=== PATIENT | female | born 1990 | race Caucasian/White ===

== ENCOUNTER → 2019-03-01 12:56 | Outpatient (CLI) | payer OTHER, SELFPAY ==
[2019-03-01 09:50] VITALS: BMI 25.2
[2019-03-03 13:59] LABS: HPV Reflexed? NOT INDICATED
== END ==
PROVIDERS: PCP Internal Medicine; Referring Provider Obstetrics & Gynecology; Visit Provider Obstetrics & Gynecology
DX: Z12.4 Encounter for screening for malignant neoplasm of cervix (principal)
CPT/HCPCS: 87624; 88175; G0145

== ENCOUNTER → 2020-03-04 09:00 | Outpatient (CLI) | payer OTHER, SELFPAY ==
[2020-03-04 08:42] VITALS: BMI 25.2
== END ==
PROVIDERS: PCP Internal Medicine; Referring Provider Obstetrics & Gynecology; Visit Provider Obstetrics & Gynecology
DX: N89.8 Other specified noninflammatory disorders of vagina (principal)
CPT/HCPCS: 87070; 87205

== ENCOUNTER → 2020-12-03 12:11 | Outpatient (CLI) | payer OTHER, SELFPAY ==
[2020-12-03 10:38] VITALS: BMI 25.8
== END ==
PROVIDERS: PCP Internal Medicine; Referring Provider Nurse Practitioner Women's Health; Visit Provider Nurse Practitioner Women's Health
DX: N76.0 Acute vaginitis (principal)
CPT/HCPCS: 87070; 87205

== ENCOUNTER → 2021-04-03 16:52 | Outpatient (CLI) | payer OTHER, SELFPAY ==
[2021-04-03 10:05] VITALS: BMI 25.2
== END ==
PROVIDERS: PCP Internal Medicine; Visit Provider Obstetrics & Gynecology
DX: Z12.4 Encounter for screening for malignant neoplasm of cervix (principal)
CPT/HCPCS: 87624; 88175; G0145

== ENCOUNTER → 2022-04-17 | Outpatient (CLI) | payer OTHER, SELFPAY ==
[2022-04-17 10:48] LABS: Amphetamine Urine VISTA NEGATIVE (<1000 ng/mL); Barbiturate Urine VISTA NEGATIVE (< 200 ng/mL); Benzodiazepine Urine VISTA NEGATIVE (< 200 ng/mL); Cocaine Urine VISTA NEGATIVE (< 300 ng/mL); Ecstacy Urine VISTA NEGATIVE (< 500 ng/mL); Methadone Urine VISTA NEGATIVE (< 300 ng/mL); PCP Urine VISTA NEGATIVE (< 25 ng/mL); THC Urine VISTA NEGATIVE (< 50 ng/mL); Vista UDS pH Range 7
[2022-04-20 21:07] LABS: Chlamydia By Nucleic Acid AMP Negative (Negative)
[2022-04-20 21:24] LABS: Gonococcus By Nucleic Acid AMP Negative (Negative)
[2022-04-23 16:39] LABS: HPV APTIMA, High Risk Negative (Negative)
== END | disposition home or self-care (01) ==
LOC: LABSPEC 15:11
PROVIDERS: PCP Internal Medicine; Referring Provider Obstetrics & Gynecology; Visit Provider Obstetrics & Gynecology
DX: O09.91 Supervision of high risk pregnancy, unspecified, first trimester (principal); Z3A.00 Weeks of gestation of pregnancy not specified
CPT/HCPCS: 80307; 87086; 87491; 87591; 87624; 88175; G0145

== ENCOUNTER → 2022-05-15 | Outpatient (CLI) | payer OTHER, SELFPAY ==
[2022-05-15 12:33] LABS: Absolute Lymphocyte Count 2.24 X10^3/uL (0.83-4.51); Absolute Neutrophil Count 7.5 X10^3/uL (2.0-7.7); Basophil# 0.04 X10^3/uL; Basophil% 0.4 % (0-1); Eosinophil# 0.07 X10^3/uL; Eosinophils% 0.7 % (0-5); Hematocrit 37.5 % (37-47); Hemoglobin 12.9 g/dL (12.0-15.0); Lymphocyte # 2.24 X10^3/ul (0.83-4.51); Lymphocyte % 21.2 % (19-41); Mean Corp Hgb Conc 34.4 g/dL (32-36); Mean Corpuscular Volume 93.1 fL (81-99); Mean Platelet Vol. 10.1 fl (6.2-12.0); Monocyte# 0.62 X10^3/uL; Monocyte% 5.9 % (0-10); NRBC Flagged by Analyzer 0 % (0-5); Neutrophil # 7.54 X10^3/uL (2.7-7.7); Neutrophil % 71.1 % (47-70); Platelet Count 350 K/mm3 (150-450); RBC Distribution Width CV 12.5 % (11.6-14.6); RBC Distribution Width SD 42.5 fl (35.1-43.9); Red Blood Count 4.03 M/mm3 (4.2-5.4); White Blood Count 10.6 K/mm3 (4.4-11.0)
[2022-05-15 13:19] LABS: HIV - WCH Non-Reactive (Nonreactive); Hepatitis B Surface Antigen Non-Reactive (Nonreactive); Hepatitis C Antibody Non-Reactive (Nonreactive); Rubella IgG Reactive (Nonreactive); Syphilis Antibodies Non-reactive
== END | disposition home or self-care (01) ==
LOC: LAB 11:25
PROVIDERS: PCP Internal Medicine; Referring Provider Obstetrics & Gynecology; Visit Provider Obstetrics & Gynecology
DX: O09.91 Supervision of high risk pregnancy, unspecified, first trimester (principal); Z3A.00 Weeks of gestation of pregnancy not specified
CPT/HCPCS: 36415; 85025; 86703; 86762; 86780; 86803; 86850; 86900; 86901; 87340

== ENCOUNTER → 2022-08-04 | Outpatient (CLI) | payer OTHER, SELFPAY ==
[2022-08-04 11:18] LABS: Absolute Lymphocyte Count 1.85 X10^3/uL (0.83-4.51); Absolute Neutrophil Count 7.3 X10^3/uL (2.0-7.7); Basophil# 0.03 X10^3/uL; Basophil% 0.3 % (0-1); Eosinophil# 0.12 X10^3/uL; Eosinophils% 1.2 % (0-5); Lymphocyte # 1.85 X10^3/ul (0.83-4.51); Lymphocyte % 18.2 % (19-41); Mean Corp Hgb Conc 34.3 g/dL (32-36); Mean Corpuscular Hgb 32.6 pg (27.0-32.0); Mean Corpuscular Volume 95.1 fL (81-99); Mean Platelet Vol. 9.4 fl (6.2-12.0); Monocyte# 0.71 X10^3/uL; NRBC Flagged by Analyzer 0 % (0-5); Neutrophil # 7.25 X10^3/uL (2.7-7.7); Neutrophil % 71.4 % (47-70); Platelet Count 283 K/mm3 (150-450); RBC Distribution Width CV 12.7 % (11.6-14.6); RBC Distribution Width SD 43.9 fl (35.1-43.9); Red Blood Count 3.68 M/mm3 (4.2-5.4); White Blood Count 10.2 K/mm3 (4.4-11.0)
[2022-08-04 11:46] LABS: Glucose Challenge Gest 1H 50g 124 mg/dL (70-140)
== END | disposition home or self-care (01) ==
LOC: LAB 11:01
PROVIDERS: PCP Internal Medicine; Referring Provider Obstetrics & Gynecology; Visit Provider Obstetrics & Gynecology
DX: O09.91 Supervision of high risk pregnancy, unspecified, first trimester (principal); Z3A.00 Weeks of gestation of pregnancy not specified
CPT/HCPCS: 36415; 82950; 85025

== ENCOUNTER → 2022-08-18 | Outpatient (CLI) | payer OTHER, SELFPAY | END | disposition home or self-care (01) | LOC: LABSPEC 08-19 06:48 | PROVIDERS: PCP Internal Medicine; Visit Provider Nurse Practitioner Women's Health | DX: R35.0 Frequency of micturition (principal) | CPT/HCPCS: 87086; 87088 ==

== ENCOUNTER → 2022-09-01 | Outpatient (CLI) | payer OTHER, SELFPAY ==
--- NOTE | 2022-09-01 13:15 | US_ITS ---
STUDY: SECOND AND THIRD TRIMESTER OBSTETRICAL ULTRASOUND REASON FOR EXAM: Female, 32 years old Growth LMP: 01/18/2022. TECHNIQUE: Transabdominal TECHNICAL QUALITY: Adequate. PRIOR ULTRASOUND: None. FINDINGS: There is a single intrauterine fetus. The fetus is in a cephalic presentation. There is demonstrated cardiac activity with a heart rate of 127 bpm. There is a normal amniotic fluid volume. The largest amniotic fluid pocket measures 5.7 cm. The amniotic fluid index (TALA) is 16.1 cm. The placenta is fundal and posterior in location. There are Grade 0 placental changes. The cervix measures 3.1 cm in length. The adnexal regions are not visualized. BIOMETRY: BPD: 8.4 cm: 33 weeks, 5 days HC: 30.7 cm: 34 weeks, 1 days AC: 30.3 cm: 34 weeks, 2 days FL: 6.1 cm: 31 weeks, 6 days CI: 81% FL/BPD: 73% FL/HC: FL/AC: 20% HC/AC: 1.01 age by current US: 33 weeks, 2 days. MARKIE by current US: 10/18/2022. Estimated weight: 2236 grams, +/- 335 grams, 80 %. Age by LMP: 32 weeks, 2 days. MARKIE by LMP: 10/25/2022. US/OB Limited With Biometrics IMPRESSION: Single live intrauterine gestation with a mean gestational age of 33 weeks and 2 days. Electronically Signed: Eduar Arias MD at 15:13 EST ,
== END | disposition home or self-care (01) ==
LOC: US 13:13
PROVIDERS: PCP Internal Medicine; Referring Provider Nurse Practitioner Women's Health; Visit Provider Nurse Practitioner Women's Health
DX: U07.1 COVID-19 (principal)
CPT/HCPCS: 76816

== ENCOUNTER → 2022-09-29 | Outpatient (CLI) | payer OTHER, SELFPAY ==
--- NOTE | 2022-09-29 13:25 | US_ITS ---
STUDY: SECOND AND THIRD TRIMESTER OBSTETRICAL ULTRASOUND - LIMITED REASON FOR EXAM: Female, 32 years old growth -- 36 weeks LMP: 01/18/2022 PRIOR ULTRASOUND: 09/01/2022 TECHNIQUE: Transabdominal TECHNICAL QUALITY: Adequate. FINDINGS: There is a single intrauterine fetus. The fetus is in a cephalic presentation. There is demonstrated cardiac activity with a heart rate of 158 bpm. There is a normal amniotic fluid volume. The largest amniotic fluid pocket measures 5.8 cm. The amniotic fluid index (TALA) is 12.8 cm. The placenta is fundal in location. There are Grade 1 placental changes. The cervix measures cm in length. BIOMETRY: BPD: 8.8 cm: 35 weeks, 4 days HC: 32.3 cm: 36 weeks, 4 days AC: 33.6 cm: 37 weeks, 3 days FL: 7.0 cm: 35 weeks, 6 days Age by LMP: 36 weeks, 2 days. MARKIE by LMP: 10/25/2022. age by prior US: weeks, days. MARKIE by prior US: . age by current US: 36 weeks, 6 days. MARKIE by current US: 10/21/2022. Estimated weight: 3051 grams, +/- 458 grams, 68 percentile. Gender: US/OB Limited With Biometrics IMPRESSION: Living intrauterine of 36 weeks 6 days as described above Electronically Signed: Fortunato Kamara MD at 17:43 EST ,
== END | disposition home or self-care (01) ==
LOC: US 13:24
PROVIDERS: PCP Internal Medicine; Referring Provider Nurse Practitioner Women's Health; Visit Provider Nurse Practitioner Women's Health
DX: O98.513 Other viral diseases complicating pregnancy, third trimester (principal); U07.1 COVID-19; Z3A.36 36 weeks gestation of pregnancy
CPT/HCPCS: 76816

== ENCOUNTER → 2022-10-02 | Outpatient (CLI) | payer OTHER, SELFPAY | END | disposition home or self-care (01) | LOC: LABSPEC 15:05 | PROVIDERS: PCP Internal Medicine; Referring Provider Obstetrics & Gynecology; Visit Provider Obstetrics & Gynecology | DX: Z34.90 Encounter for supervision of normal pregnancy, unspecified, unspecified trimester (principal); N39.0 Urinary tract infection, site not specified | CPT/HCPCS: 87081; 87086 ==

== ENCOUNTER 2022-10-19 07:00 | Inpatient (IN) | payer OTHER, SELFPAY ==
[2022-10-19] VITALS (25 sets, daily range): BP systolic 98–142; BP diastolic 56–82; PULSE 72–99; TEMP 36.4–37; O2SAT 81–98; BMI 28.1
[2022-10-19] MEDS: Lactated Ringers 1,000 ML 50 ML IV (07:45)
[2022-10-19 08:08] LABS: Absolute Lymphocyte Count 2.14 X10^3/uL (0.83-4.51); Basophil# 0.04 X10^3/uL; Basophil% 0.4 % (0-1); Eosinophil# 0.14 X10^3/uL; Eosinophils% 1.5 % (0-5); Hematocrit 35.9 % (37-47); Lymphocyte # 2.14 X10^3/ul (0.83-4.51); Mean Corp Hgb Conc 36.2 g/dL (32-36); Mean Corpuscular Hgb 33.9 pg (27.0-32.0); Mean Corpuscular Volume 93.5 fL (81-99); Monocyte# 0.89 X10^3/uL; Monocyte% 9.6 % (0-10); NRBC Flagged by Analyzer 0 % (0-5); Neutrophil # 6.03 X10^3/uL (2.7-7.7); Neutrophil % 64.7 % (47-70); Platelet Count 284 K/mm3 (150-450); RBC Distribution Width CV 12.3 % (11.6-14.6); RBC Distribution Width SD 42.3 fl (35.1-43.9); Red Blood Count 3.84 M/mm3 (4.2-5.4); White Blood Count 9.3 K/mm3 (4.4-11.0)
[2022-10-19] MEDS: miSOPROStol 25 MCG TABLET PO (08:42)
--- NOTE | 2022-10-19 08:43 | HP.PCM.OB_ITS ---
HPI - General General Date of Admission: 10/19/22 HPI Narrative SUNSHINE TRAN, is a 32 F who presents for IOL secodnary to IVF . Maternal Data Information MARKIE Calculator Estimated Delivery Date Method Current WG Current Estimate 10/25/22 LMP (Certain) 39w 1d PFSH [facility] Medical History Kidney stones, calcium oxalate Lab test positive for detection of COVID-19 virus Home Medications lactobacillus combination no.8 3 billion cell capsule (Adult Probiotic) 3,000 mmu cells PO DAILY 03/01/19 [History Last Taken 10/19/22 00:00] docosahexaenoic acid 200 mg capsule ( DHA) 200 mg PO DAILY 12/03/20 [History Last Taken 10/19/22 00:00 1] aspirin 81 mg tablet,delayed release 81 mg PO DAILY 06/12/22 [History Last Taken 10/18/22 10:00] famotidine 20 mg tablet (Pepcid AC) 20 mg PO DAILY 08/31/22 [History Last Taken 10/19/22 06:00] Allergy/AdvReac Type Severity Reaction Status Date / Time No Known Allergies Allergy Verified 10/19/22 07:17 Surgical History History of tonsillectomy Social History Smoking Status: Never smoker alcohol intake: never substance use type: does not use caffeine: Yes what type of physical activity do you participate in: walking seatbelt use: always do you feel safe at home: Yes additional social history: Shahid Theodore 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 Date Name GA/Weeks Outcome Route Bth Weight Gen Labor Lgth Anesthesia Del Locatn Provider FOB Unknown 2018 Ender live - full term [facility] Visit Details Expected Delivery Route/Plan Labor Preferences- CB/BF classes: no labor support person: Adrian labor intervention preferences: [] pain management options preferred: epidural cut cord/dad catch: cord : no PP control planned: discussed discussed possible routes of delivery and associated risks: [] special requests: [] Plans Covid status: no Flu vaccine: no Tdap vaccine: given Rhogam: na LARC form signed: yes Problem list reviewed and updated with the most current plan of care details and appropriate orders placed. Relevant counseling for the gestational age provided. Continue routine care and follow up unless otherwise noted in visit notes/problem list details OB Flowsheet Initial Weight: Not Recorded Date -?-?-?-?-?-?-?-?-?-?-?-?- EGA Weight BP Urine Prot -?-?-?-?-?-?-?-?-?-?-?-?- Glucose FHR FuHt Pres Dilation -?-?-?-?-?-?-?-?-?-?-?-?- Effaced St Visit Note 04/17/22 -?-?-?-?-?-?-?-?-?-?-?-?- 12w 5d 66.678 kg -?-?-?-?-?-?-?-?-?-?-?-?- 160 -?-?-?--?-?-?-?-?-?-?-?-?- JV- CRL consiste nt with established GA. IVF transfer. 05/15/22 -?-?-?-?-?-?-?-?-?-?-?-?- 16w 5d 66.678 kg 103/69 -?-?-?-?-?-?-?-?-?-?-?-?- 150 -?-?-?-?-?-?-?-?-?-?-?-?- SM- no vb crampi ng still having vomiting 06/12/22 -?-?-?-?-?-?-?-?-?-?-?-?- 20w 5d 67.585 kg 108/66 Negati ve -?-?-?-?-?-?-?-?-?-?-?-?- Negative 155 -?-?-?-?-?-?-?-?-?-?-?-?- TUSHAR- manuelito hathaway al bleeding, or spotting. 07/17/22 -?-?-?-?--?-?-?-?-?-?-?-?- 25w 5d 71.305 kg 110/66 Negati ve -?-?-?-?-?-?-?-?-?-?-?-?- Negative 145 -?-?-?-?-?-?-?-?-?-?-?-?- JV- no lof, v ag inal bleeding, or cramping. Glucola ordered 08/04/22 -?-?-?-?-?-?-?-?-?-?-?-?- 28w 2d 71.724 kg 112/78 Negati ve -?-?-?-?-?-?-?-?-?-?-?-?- Negative 147 28 -?-?-?-?-?-?-?-?-?-?-?-?- MH-No VB, LOF. G ood FM. 28 wk labs, larc, tdap. 32 and 36 wk growth US ordered. NSTs wkly at 36 wk scheduled. declines flu 08/18/22 -?-?--?-?-?-?-?-?-?-?-?-?- 30w 2d 72.235 kg Negative -?-?-?-?-?-?-?-?-?-?-?-?- Negative -?-?-?-?-?-?-?-?-?-?-?-?- JV- pt here for CVA tenderness and h/o kidney stones. urine was clear. ordering renal ultrasound. oferred to send to L&D or ER for fluids and declines. will be back wednesday for exam 08/21/22 -?-?-?-?-?-?-?-?-?-?-?-?- 30w 5d 71.668 kg 106/60 Negati ve -?-?-?-?-?-?-?-?-?-?-?-?- Negative 140 30 -?-?-?-?-?-?-?-?-?-?-?-?- SM- still having some urinary frequency and urgency, 08/31/22 -?-?-?-?-?-?-?-?-?-?-?-?- 32w 1d 72.745 kg 120/76 Negati ve -?-?-?-?-?-?-?-?-?-?-?-?- Negative 146 32 -?-?-?-?-?-?-?-?-?--?-?-?- LC- urinary symp toms have resolved. finished abx on wednesday. will repeat uc in 4 weeks. has growth scan maddi for tomorrow. -increase prevacid to BID-continued GERD . good fm, denies lof,vb,ctx. 09/15/22 -?-?-?-?-?-?-?-?-?-?-?-?- 34w 2d 72.575 kg 113/74 Negati ve -?-?-?-?-?-?-?-?-?-?-?-?- Negative 169 34 -?-?--?-?-?-?-?-?-?-?-?-?- JV- no lof, vagi nal bleeding, or dec fm. need urine culture at 36 weeks. growth scan also pending. 10/02/22 -?-?-?-?-?-?-?-?-?-?-?-?- 36w 5d 74.049 kg 103/70 Negati ve -?-?-?-?-?-?-?-?-?-?-?-?- Negative 140 36 -?-?-?-?-?-?-?-?-?-?-?-?- JV- no complaint s today. gbs collected NST reactive . 10/09/22 -?-?-?-?-?-?-?-?-?-?-?-?- 37w 5d 73.595 kg 120/81 Negati ve -?-?-?-?-?-?-?-?-?-?-?-?- Negative 130 37 -?-?-?-?-?-?-?-?-?-?-?-?- JV- nst reactive . plan for pelvic exam and set up 39 week IOL next visit 10/14/22 -?-?-?-?-?-?-?-?-?-?-?-?- 38w 3d 72.631 kg 116/76 Negati ve -?-?-?-?-?-?-?-?-?--?-?-?- Negative 135 -?-?-?-?-?-?-?-?-?-?-?-?- LC- reactive NST . no ctx/lof/vb. good fm. iol set up b/n 39-40 weeks for IVF. LC- reactive NST. no ctx/lof /vb. good fm. iol set upat 7am on 10/19/22 w/ cytotec. 10/19/22 -?-?-?-?-?-?-?-?-?-?-?-?- 39w 1d 74.389 kg 115/67 -?-?-?-?-?-?-?-?-?-?-?-?- -?-?-?-?-?-?-?-?-?-?-?-?- Vital Signs Vital Signs Vital Signs: 10/19/22 07:25 10/19/22 07:25 10/19/22 07:59 Temperature Temperature Source Temporal Pulse Rate 99 Blood Pressure 115/67 BP Systolic 115 BP Diastolic 67 10/19/22 07:59 Temperature 98.2 F Temperature Source Pulse Rate Blood Pressure BP Systolic BP Diastolic Weight Weight: 74.389 kg Body Mass Index (BMI) 28.1 Labs Labs Labs: Blood Type A POSITIVE Antibody Screen NEGATIVE Hct 35.9 % (37-47) L Hgb 13.0 g/dL (12.0-15.0) Pap Smear Negative Obstetrics US Syphilis Total Ab Non-reactive Rubella IgG Antibody Reactive (Nonreactive) Hep Bs Antigen Non-Reactive (Nonreactive) Chlamydia DNA (ZACK) Negative (Negative) Neisseria gonorrhoeae DNA (ZACK) Negative (Negative) HIV 1&2 Antibody Non-Reactive (Nonreactive) Glucose 1 Hr 50 gm 124 mg/dL (70-140) Miscellaneous Test COMMENT Assessment & Plan (1) UTI (urinary tract infection): COMMENT: treated with cephalexin 08/20. repeat uc in 4 weeks. (2) History of kidney stones: (3) History of tetanus, diphtheria, and acellular pertussis booster vaccination (Tdap): COMMENT: 08/04/22 (4) Lab test positive for detection of COVID-19 virus: COMMENT: 81 mg ASA, 32 & 36 wk growth US (5) conceived through in vitro fertilization: COMMENT: discussed echo at 22-24 weeks and growth us/weekly nsts at 36 weeks, IOL by 39-40(if possible would prefer after kristin) nl ech 07/03 (6) : QUALIFIERS: Weeks of gestation: 38 weeks Qualified Code(s): Z3A.38 - 38 weeks gestation of COMMENT: GBS neg. Genetics done on embryos prior to transfer, carrier testing negative, NIPT nl, Anatomy US nl except for echogenic foci- echo 06/30/22, 09/01/22 nl growth 80% 2236gm =/- 335gms., 09/30 36wk nl growth EFW 3051+/- 458 68%. (7) Supervision of high risk in first trimester: COMMENT: PRR MARKIE 10/25/22 surprise SB Handley : Adrian (8) Infertility: COMMENT: conceived with IUI last , sees [facility] (9) Encounter for induction of labor: PLAN: Plan Patient presents IOL, plan management for with cytotec then fb pit. Pain management: plans epidural. GBS negative. Management of any complications: none I have reviewed the [facility] and made any clinically relevant updates.
[2022-10-19] MEDS: miSOPROStol 50 MCG TABLET VAGINAL (13:01)
[2022-10-19] MEDS: 0.9% Normal Saline Single 100 ML IV.SOLN. INTRA-UTER (18:34)
[2022-10-19] MEDS: LACTATED RINGERS 500 ML 999 ML IV (19:20)
[2022-10-19] MEDS: fentaNYL-bupivacaine (epidural) 100 ML BAG EPIDURAL (20:08)
[2022-10-19] MEDS: Lactated Ringers 1,000 ML 200 ML IV (21:17)
--- NOTE | 2022-10-19 23:18 | PCM.PN.BLA ---
Progress Note arom clear fluid current tracing: FHT: 150 Moderate variability reactive no decelerations category I tracing Germania: q 2-3 Contractions reviewed tracing abnormalities since last note: no signficiant A/P: s/p cytotec and fb, plan pit PRN, now 5 cm
[2022-10-20] VITALS (50 sets, daily range): BP systolic 90–160; BP diastolic 51–98; PULSE 75–134; RESP 14–16; TEMP 36.5–38.5; O2SAT 96–100
[2022-10-20] MEDS: fentaNYL-bupivacaine (epidural) 100 ML BAG EPIDURAL (00:47)
[2022-10-20] MEDS: Ondansetron 4 MG/2 ML Vial IV ×2 (01:55→06:33)
[2022-10-20] MEDS: Lactated Ringers 1,000 ML 200 ML IV (02:15)
--- NOTE | 2022-10-20 03:21 | EX.PCM.OBRPT ---
Assessment & Plan (1) UTI (urinary tract infection): COMMENT: treated with cephalexin 08/20. repeat uc in 4 weeks. (2) History of kidney stones: (3) History of tetanus, diphtheria, and acellular pertussis booster vaccination (Tdap): COMMENT: 08/04/22 (4) Encounter for induction of labor: (5) Lab test positive for detection of COVID-19 virus: COMMENT: 81 mg ASA, 32 & 36 wk growth US (6) conceived through in vitro fertilization: COMMENT: discussed echo at 22-24 weeks and growth us/weekly nsts at 36 weeks, IOL by 39-40(if possible would prefer after kristin) nl ech 07/03 (7) : QUALIFIERS: Weeks of gestation: 38 weeks Qualified Code(s): Z3A.38 - 38 weeks gestation of COMMENT: GBS neg. Genetics done on embryos prior to transfer, carrier testing negative, NIPT nl, Anatomy US nl except for echogenic foci- echo 06/30/22, 09/01/22 nl growth 80% 2236gm =/- 335gms., 09/30 36wk nl growth EFW 3051+/- 458 68%. (8) Supervision of high risk in first trimester: COMMENT: PRR MARKIE 10/25/22 surprise SB Handley : Adrian (9) Infertility: COMMENT: conceived with IUI last , sees RGI Maternal Data Information MARKIE Calculator Estimated Delivery Date Method Current WG Current Estimate 10/25/22 LMP (Certain) 39w 2d Vaginal Delivery Operative Information Date of Procedure: 10/20/22 Pre-Operative Diagnosis: IOL ivf Post-Operative Diagnosis: same Surgery / Procedure Performed: Spontaneous Vaginal Delivery Type of Anesthesia: Epidural Special Medications: none Estimated Blood Loss: 500 Fluids Replaced: crystalloid Findings Description of Procedure: Patient began pushing and delivered the head in the LISA presentation. The head was delivered atraumatically and a loose nuchal cord ?1 was identified and the infant delivered through without complication. The anterior and posterior shoulders delivered without complication followed by the rest of the infant and the infant was placed on the maternal abdomen. Delayed cord clamping was employed for approximately 60 seconds. Cord was clamped and cut and gentle traction was applied to the cord and the placenta delivered spontaneously immediately following it was noted to be intact with three-vessel cord. The perineum and vagina were inspected and noted to have a first degree laceration repaired in the usual fashion with 3-0 rapide. she had some atony treated with pitocin metherine hemabate and massage. EBL was 500. Patient and infant tolerated delivery well. Presentation: LISA Amniotic Membrane Rupture Type: Artificial Amniotic Fluid Description: Clear Placental Delivery Description: Spontaneous Placenta Disposition: [facility] Cord Vessel Description: 3 Vessels Cord Entanglement: None Delayed Cord Clamping: Yes Post Vaginal Delivery Medications Given After Delivery: IV Pitocin, IM Methergin and IM Hemabate Episiotomy Description: None Laceration: Perineal Extension/lac and 1st degree Complication Complications: None Procedures Urinary/Genital [id number]: [id number] Vaginal Delivery [facility]
--- NOTE | 2022-10-20 03:23 | DCINST_ITS ---
Discharge Instructions Diet Discharge Diet: No restrictions Activity Discharge Activity: Return to Normal Activity, May Drive, May Shower and May Take a Tub Bath (in 4 weeks) May resume sexual activity in: 6-8 weeks (after seen by OB provider) Weight Bearing Status: Full weight bearing Lifting Restrictions: none Dressing / Incision Call your doctor if you observe: Fever of 101 or Higher, Inability to urinate, Using more than 1 pad per hour (for more than 2 hours in a row or more), Shortness of breath, Dizziness, Chest pain and - (headache not controlled with tylenol, change in vision) Follow Up Care When: in 6 weeks for visit, call the office to make the appointment. If you had elevated blood pressures call the office to be seen within 1 week. Test Results: Test results from this visit will be discussed in further detail at your follow- up appointment, if applicable. Discharge Plan Admission Admit Date/Time: 10/19/22 07:00 Attending Provider: Shanita Hendrix Primary Care Provider: Angelica Sharpe Discharge Orders/Prescriptions Prescriptions: No Action Adult Probiotic 3 billion cell capsule 3,000 mmu cells PO DAILY DHA 200 mg capsule 200 mg PO DAILY aspirin 81 mg tablet,delayed release (DR/EC) 81 mg PO DAILY famotidine [Pepcid AC] 20 mg tablet 20 mg PO DAILY Referrals / Follow Up: Angelica Sharpe DO [Primary Care Provider] - Disposition Disposition (needs filled in before D/C Order can be placed): Home, Self Care
[2022-10-20] MEDS: Oxytocin 15 Units/NS 250ml 15 UNITS/250 ML IV.SOLN 83 UNITS IV (04:36)
[2022-10-20] MEDS: Acetaminophen 500 MG Tablet 1000 MG PO ×3 (05:28→23:15)
[2022-10-20] MEDS: Methylergonovine 0.2 MG/ML Ampul IM (05:35)
[2022-10-20] MEDS: Carboprost Tromethamine 250 MCG/ML Ampul IM (05:57)
[2022-10-20] MEDS: Loperamide 2 MG Capsule PO (06:12)
[2022-10-20] MEDS: 0.9% Saline Lock 10 ML Syringe IV ×3 (06:30→07:45)
[2022-10-20 07:17] LABS: Absolute Lymphocyte Count 0.66 X10^3/uL (0.83-4.51); Absolute Neutrophil Count 18.3 X10^3/uL (2.0-7.7); Basophil# 0.04 X10^3/uL; Basophil% 0.2 % (0-1); Hematocrit 34.6 % (37-47); Lymphocyte # 0.66 X10^3/ul (0.83-4.51); Lymphocyte % 3.2 % (19-41); Mean Corp Hgb Conc 34.7 g/dL (32-36); Mean Corpuscular Hgb 33.3 pg (27.0-32.0); Mean Corpuscular Volume 96.1 fL (81-99); Mean Platelet Vol. 10.6 fl (6.2-12.0); Monocyte# 1.44 X10^3/uL; NRBC Flagged by Analyzer 0 % (0-5); Neutrophil % 88.8 % (47-70); Platelet Count 263 K/mm3 (150-450); RBC Distribution Width CV 12.3 % (11.6-14.6); White Blood Count 20.6 K/mm3 (4.4-11.0)
[2022-10-20] MEDS: Prenatal Vits Tablet 1 TABLET PO (10:49)
[2022-10-20] MEDS: Famotidine 20 MG Tablet PO (10:49)
[2022-10-20] MEDS: Naproxen 500 MG Tablet PO (15:50)
--- NOTE | 2022-10-20 17:42 | NURSING ---
Bladder scan completed before void was >450ml. After void was 216ml and urine measured 300ml. Uterus firm U/U and displaced to the right before and after void. Dr Hendrix at bedside and updated. The plan is to notify provider if any signs of infection or vital sign changes.
[2022-10-21] VITALS (8 sets, daily range): BP systolic 86–100; BP diastolic 50–65; PULSE 63–91; RESP 15–16; TEMP 36.2–36.4; O2SAT 96–98
[2022-10-21] MEDS: Acetaminophen 500 MG Tablet 1000 MG PO (08:33)
--- NOTE | 2022-10-21 08:38 | PCM.PN.OB ---
Subjective Subjective Patient doing well without complaints. Tolerating PO. Ambulating and voiding without difficulty. Feeding well. Denies chest pain, shortness of breath, calf pain/swelling, fevers, chills, lightheadedness. Objective Data Objective Data Vital Signs: Vital Signs Temp Pulse Resp BP Pulse Ox O2 Del Method 97.6 F L 79 16 90/55 L 96 Room Air 10/21/22 04:32 10/21/22 08:36 10/21/22 04:32 10/21/22 08:36 10/21/22 04:32 10/21/22 04:32 Oxygen Delivery Method Room Air Weight: 164 lb Body Mass Index (BMI) 28.1 Intake & Output: Intake and Output for Last 24 Hours 10/19/22 10/20/22 10/21/22 23:59 23:59 23:59 Intake Total 1365.84 / 1365.84 1820.00 / 1820.00 Output Total 800 / 1600 1999 / 1999 Balance 565.84 / -234.16 -180.00 / -180.00 Lab / Micro Data Result Diagrams: 10/20/22 06:12 Physical Exam Const alert, oriented x3 and no apparent distress HEENT normocephalic Eyes PERRL Lymph Lymphatic: no lymphadenopathy noted Resp normal respiratory effort GI normal to inspection, nondistended, normoactive bowel sounds GI Narrative: fundus firm at u. 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 safety precautions given cbc stable post delivery PLAN: Plan s/p PPD # 1 1. routine post delivery care 2. formula feeding only, support given on breast care 3. rh positive 4. rubella immune 5. d/c home tomorrow
[2022-10-21] MEDS: Prenatal Vits Tablet 1 TABLET PO (09:50)
--- NOTE | 2022-10-21 18:28 | NURSING ---
Reviewed and agreed with Ginger MOORE charting.
== END 2022-10-21 14:45 | disposition home or self-care (01) | DRG 807 ==
PROVIDERS: Admitting Provider Obstetrics & Gynecology; PCP Internal Medicine; Visit Provider Obstetrics & Gynecology
DX: O76 Abnormality in fetal heart rate and rhythm complicating labor and delivery (principal); Z37.0 Single live birth; O62.2 Other uterine inertia; O70.0 First degree perineal laceration during delivery; Z79.82 Long term (current) use of aspirin; Z3A.38 38 weeks gestation of pregnancy; Z86.16 Personal history of COVID-19; Z87.442 Personal history of urinary calculi
CPT/HCPCS: 59025; 59050; 85025; 86850; 86900; 86901; 99218; J7120; A4216; G0378; J2405

== ENCOUNTER → 2024-04-19 | Outpatient (CLI) | payer OTHER, SELFPAY ==
[2024-04-22 07:08] LABS: Chlamydia By Nucleic Acid AMP Negative (Negative); Gonococcus By Nucleic Acid AMP Negative (Negative)
== END | disposition home or self-care (01) ==
LOC: LABSPEC 16:03
PROVIDERS: PCP Internal Medicine; Visit Provider Obstetrics & Gynecology
DX: O09.819 Supervision of pregnancy resulting from assisted reproductive technology, unspecified trimester (principal); Z3A.00 Weeks of gestation of pregnancy not specified
CPT/HCPCS: 87086; 87491; 87591

== ENCOUNTER → 2024-06-19 | Outpatient (CLI) | payer OTHER, SELFPAY ==
[2024-06-19 09:33] LABS: Absolute Lymphocyte Count 1.89 X10^3/uL (0.83-4.51); Absolute Neutrophil Count 6.3 X10^3/uL (2.0-7.7); Basophil# 0.05 X10^3/uL; Basophil% 0.6 % (0-1); Eosinophil# 0.16 X10^3/uL; Eosinophils% 1.8 % (0-5); Hematocrit 36.7 % (37-47); Hemoglobin 12.4 g/dL (12.0-15.0); Lymphocyte # 1.89 X10^3/ul (0.83-4.51); Lymphocyte % 21.2 % (19-41); Mean Corp Hgb Conc 33.8 g/dL (32-36); Mean Corpuscular Hgb 31.4 pg (27.0-32.0); Mean Corpuscular Volume 92.9 fL (81-99); Mean Platelet Vol. 9.8 fl (6.2-12.0); Monocyte# 0.51 X10^3/uL; Monocyte% 5.7 % (0-10); NRBC Flagged by Analyzer 0 % (0-5); Neutrophil # 6.25 X10^3/uL (2.7-7.7); Platelet Count 297 K/mm3 (150-450); RBC Distribution Width CV 12.3 % (11.6-14.6); RBC Distribution Width SD 42.3 fl (35.1-43.9); Red Blood Count 3.95 M/mm3 (4.2-5.4); White Blood Count 8.9 K/mm3 (4.4-11.0)
[2024-06-19 10:56] LABS: HIV - WCH Non-Reactive (Nonreactive); Hepatitis B Surface Antigen Non-Reactive (Nonreactive); Hepatitis C Antibody Non-Reactive (Nonreactive); Rubella IgG Reactive (Nonreactive); Syphilis Antibodies Non-reactive
== END | disposition home or self-care (01) ==
PROVIDERS: PCP Internal Medicine; Referring Provider Obstetrics & Gynecology; Visit Provider Obstetrics & Gynecology
DX: O09.819 Supervision of pregnancy resulting from assisted reproductive technology, unspecified trimester (principal); Z3A.00 Weeks of gestation of pregnancy not specified
CPT/HCPCS: 36415; 85025; 86703; 86762; 86780; 86803; 86850; 86900; 86901; 87340

== ENCOUNTER → 2024-08-15 | Outpatient (CLI) | payer OTHER, SELFPAY ==
--- OUTSIDE RECORDS SUMMARY | 2024-08-15 11:05 | XMS RPT_ITS | CCD ---
Author Organization [facility] Care Team Providers Care Infrastructure Developer Name Role Phone Angelica Sharpe Unavailable Del Corea Unavailable Unavailable Moriah Rosa Unavailable Unavailable Unavailable GAYLE FARR Attending Unavailable GAYLE FARR Admitting Unavailable AA NO PCP, NO PCP Primary Care Unavailable Del Daily Unavailable Unavailable Gravius, Yoli Unavailable Unavailable Unavailable Primary Care Provider Unavailabl Angelica Haas DO Unavailable Del Daily LPN Unavailable Unavailable Marisel OAKES, Mila Unavailable Unavailable Alyse Major CNP Unavailable Unavailable Unavailable Little LUBRICATING MACHINE TENDER, Kayela Unavailable Unavailable Angelica Sharpe DO Attending Unavailable Angelica Sharpe DO Referring Unavailable Angelica Sharpe DO Consulting Unavailable Farwell CHAMP, Skyler Unavailable Unavailable NOEMI JOHNSON Referring Unavailab NOEMI Cortes Attending Unavailab ANGELICA Rock Primary Care Unavailable Medications Completed/Discontinued Medications Medication Drug Class(es) Dates Sig (Normalized) Sig (Original) bacillus subtilis [id number] unt / inulin 1000 mg chewable tablet (7 sources) take 1 tablet by mouth once daily Culturelle Probiotics Oral Tablet Chewable Active Comments: 1 daily Comment on above: 1 daily Culturelle Probiotics Oral Tablet Chewable (3 sources) take 1 tablet by mouth once daily Culturelle Probiotics Oral Tablet Chewable Active Comments: 1 daily Comment on above: 1 daily letrozole (5 sources) Aromatase Inhibitor Letrozole In active Letrozole Active Multivitamins Oral Capsule (10 sources) take 2 capsules by m outh once daily Multivitamins Oral Capsule 2 daily Inactive Comments: tks gummies take 2 capsules by mouth once da anna Multivitamins Oral Capsule 2 daily Active Comments: tks gummies Comment on above: tks gummies nitrofurantoin, macrocrystals 25 mg / nitrofurantoin, monohydrate 75 mg oral capsule (10 sources) Nitrofuran Antibacterial Start: 0 End: 0 take 1 capsule by mouth twice daily Macrobid 100 MG Oral Capsule 1 (one) Capsule bid for 5 days Quantity: 10 {Capsule} Refills: 0 Ordered: 14-May-2020 Alyse Major Start : 14-May-2020 End : 19-May-2020 Inactive vitamins (4 sources) vitamins Active Problems Active Problems Problem Classification Problem Date Documented Da te Episodic/Chronic Abdominal pain (20 sources) Left flank pain; Translations: [Left flank pain] Resolved: 12-02-2022 05-14-2020 Episodic Comment on above: history of stones Calculus of urinary tract (11 sources) History of calculus of kidney; Translations: [History of nephrolithiasis] 12-29-2021 Episodic Contraceptive and procreative management (2 sources) Encounter for fertility testing; Translations: [ENCOUNTER FOR FERTILITY TESTING] Onset: 09-18-2020 Episodic Disorders of lipid metabolism (4 sources) Hypertriglyceridemi a; Translations: [Hypertriglyceridem ia] 12-11-2022 Chronic Comment on above: 6week post -- getting back into exercise and started eating healthier again Genitourinary symptoms and ill-defined conditions (12 sources) Blood in urine; Translations: [Hematuria] 12-29-2021 Episodic Mycoses (14 sources) Candidiasis of vagina; Translations: [Vaginal yeast infection] Resolved: 12-02-2022 01-02-2021 Episodic Comment on above: recurrent Other nutritional; endocrine; and metabolic disorders (7 sources) Overweight in adulthood with body mass index of 25 or more but less than 30; Translations: [BMI 25.0-25.9,adult] 12-02-2022 Episodic Other and delivery including normal (6 sources) state; Translations: [ state] 12-02-2022 Episodic Other screening for suspected conditions (not mental disorders or infectious disease) (19 sources) Patient encounter status; Translations: [Encounter for screening for lipid disorder (Renamed from Screening for lipid disorders)] 01-02-2021 Episodic Other skin disorders (2 sources) Skin tag; Translations: [Skin tag] 04-08-2023 Episodic Residual codes; unclassified (20 sources) Body mass index 20-24 - normal; Translations: [BMI 24.0-24.9, adult] Resolved: 12-02-2022 05-14-2020 Episodic Residual codes; unclassified (20 sources) Non-smoker; Translations: [Non-smoker] 12-29-2021 Episodic Urinary tract infections (20 sources) Urinary tract infectious disease; Translations: [UTI (urinary tract infection)] 05-14-2020 Episodic Past or Other Problems Problem Classification Problem Date Documented Da te Episodic/Chronic Unclassified (19 sources) Non-smoker; Translations: [Non-smoker] 05-14-2020 Unclassified (20 sources) Body mass index 20-24 - normal; Translations: [BMI 24.0-24.9, adult] 05-14-2020 Unclassified (10 sources) Deliveries (Parity); Translations: [Deliveries (Parity)] 05-14-2020 Comment on above: 1. 05/28/2018 Unclassified (12 sources) Patient encounter status; Translations: [Encntr for general adult medical exam w/o abnormal findings] 05-14-2020 Unclassified (20 sources) Unclassified (4 sources) Vaginal yeast infection Unclassified (4 sources) Encounter for screening for lipid disorder (Renamed from Screening for lipid disorders) Unclassified (4 sources) Encounter for well adult exam with abnormal findings Unclassified (1 source) Flank pain, acute Unclassified (1 source) History of nephrolithiasis Results Test Name Value Interpretation Reference Range Facility TRIGLYCERIDES ([id number])Ordered By: Chief Of Field Operations on 04-02-2023 Triglyceride [Mass/Vol] 82 mg/dL Normal 0-149 [facility] Work Phone: Comment on above: PATIENT WAS FASTINGP ERFORMED BY: [facility] [id number] [facility] [id number] LIPID PANEL ([id number])Ordered B y: Chief Of Field Operations on 12-07-2022 Cholesterol [Mass/Vol] 222 mg/dL Abnormal 100-199 [facility]; [facility] Work Phone: Comment on above: PATIENT WAS FASTINGP ERFORMED BY: EDE Labcomir[facility] [id number] [place] [id number] Cholesterol in HDL [Mass/Vol] 55 mg/dL Normal [facility]; [facility] Work Phone: Comment on above: PATIENT WAS FASTINGP ERFORMED BY: EDE Labcomir[facility] [id number] [place] [id number] Triglyceride [Mass/Vol] 247 mg/dL Abnormal 0-149 [facility] Work Phone: Comment on above: PATIENT WAS FASTINGP ERFORMED BY: EDE Labkaiden [id number] Road[address] [place] [id number] LIPID PANEL ([id number]) 43 mg/dL Abnormal 5-40 [facility]pr [facility]; [facility] Work Phone: Comment on above: PATIENT WAS FASTINGP ERFORMED BY: EDE Labka[facility] [id number] [facility] [place] [id number] LIPID PANEL ([id number]) 124 mg/dL Abnormal 0-99 [facility]; [facility] Work Phone: Comment on above: PATIENT WAS FASTINGP ERFORMED BY: EDE Labcomir[facility] [id number] [facility] [place] [id number] LIPID PANEL ([id number]) 2.3 {ratio} Normal 0.0-3.2 Comp [facility]; [facility] Work Phone: Comment on above: LDL/HDL Ratio Men Wo men 1/2 Avg.Risk 1.0 1.5 Avg.Risk 3.6 3.2 2X Avg.Risk 6.2 5.0 3X Avg.Risk 8.0 6.1 PATIENT WAS FASTINGP ERFORMED BY: EDE [facility] [id number] [facility] [place] [id number] Op Noteon 12-19-2021 Op Note Operative Note Department of Obstetrics and Gynecology Patient: Cheli Ga : 1990 Date of Procedure: 12/19/21 Pre-operative Diagnosis: 31 y.o. female No obstetric history on file., Ovarian Follicles Post-operative Diagnosis: Same Procedure: Ultrasound Guided Transvaginal Follicular Aspiration, Oocyte Retrieval Surgeon: Dr. Harris Export Clerk(s): Anesthesia: MAC Findings: Multiple Ovarian Follicles Total IV fluids/Blood products: 700 ml crystalloid Estimated blood loss: Minimal Drains: none Specimens: Follicular fluid, sent to IVF Lab for oocyte ID and counting Complications: none Condition: good, transferred to post anesthesia recovery History and Indication: Patient presents for transvaginal follicle aspiration. Recently undergone superovulation with injectable gonadotropins. Informed consent was obtained from the patient to include but not be limited to risks of infection, bleeding, injury to bowel, bladder, blood vessels, ureters, and uterus. The patient has consented to the procedure, acknowledging the risks described to her. Procedure: The patient was taken back to the procedure room and placed in dosal lithotomy position. She was prepped and draped in standard sterile fashion. A vaginal ultrasound probe with needle guide was placed into her vagina and ovarian follicles were noted. All visible follicles were aspirated under ultrasound needle guidance. There was no bleeding from the ovaries at the termination of the procedure. The vaginal mucosa was inspected and bleeding controlled. At the termination of the procedure, hemostasis was excellent. The procedure was deemed complete. The patient was awakened from anesthesia and taken to post-procedure recovery in good condition. Sponge and instrument counters were correct. Patient tolerated the procedure well. Phyllis Harris MD 12/19/2021, 10:13 AM Normal [facility] HGB A1C ([id number])Ordered By: S ystem Bottle Gauger on 01-02-2021 HbA1c (Bld) [Mass fraction] 5.1 % Normal 4.8-5.6 [facility] Work Phone: Comment on above: . Prediabetes: 5.7 - 6.4 Diabetes: >6.4 Glycemic control for adults with diabetes: <7.0 PATIENT WAS FASTINGP ERFORMED BY: [facility] [id number] [facility] [id number] LIPID PANEL ([id number])Ordered B y: Chief Of Field Operations on 01-02-2021 Cholesterol [Mass/Vol] 168 mg/dL Normal 100-199 [facility]; [facility] Work Phone: Comment on above: PATIENT WAS FASTINGP ERFORMED BY: EDE [facility] [id number] [facility] [id number] Cholesterol in HDL [Mass/Vol] 62 mg/dL Normal [facility]; [facility] Work Phone: Comment on above: PATIENT WAS FASTINGP ERFORMED BY: CB [facility] [id number] [facility] [place] [id number] Triglyceride [Mass/Vol] 77 mg/dL Normal 0-149 [facility]; [facility] Work Phone: Comment on above: PATIENT WAS FASTINGP ERFORMED BY: EDE LabComiriam [id number] [facility] [id number] LIPID PANEL ([id number]) 15 mg/dL Normal 5-40 Compr [facility]; [facility] Work Phone: Comment on above: PATIENT WAS FASTINGP ERFORMED BY: EDE [facility] [id number] [facility] [id number] LIPID PANEL ([id number]) 91 mg/dL Normal 0-99 Compr [facility]; [facility] Work Phone: Comment on above: PATIENT WAS FASTINGP ERFORMED BY: EDE [facility] [id number] [facility] [place] [id number] LIPID PANEL ([id number]) 1.5 {ratio} Normal 0.0-3.2 Comp [facility]; [facility] Work Phone: Comment on above: LDL/HDL Ratio Men Wo men 1/2 Avg.Risk 1.0 1.5 Avg.Risk 3.6 3.2 2X Avg.Risk 6.2 5.0 3X Avg.Risk 8.0 6.1 PATIENT WAS FASTINGP ERFORMED BY: CB [facility] [id number] [facility] [place] [id number] XR Injection [facility] 09-17-2020 XR Injection Hysterosalpingography Fluoro Time Indication: Infertility 0.5 minutes of fluoro was provided to Dr. Farr. Read by: MANI JUSTIN MD Approved by: MANI JUSTIN MD Date: 09/18/2020 8:[address] [facility] URINE BRADY CULTURE-IDENTIFICA [place] ([id number])Ordered By: Chief Of Field Operations on 05-14-2020 Bacteria identified Cx Nom (U) Escherichia coli Abnormal [facility] Work Phone: Comment on above: Greater than 100,000 colony forming units per mLCefazolin <=4 ug/mLCefazolin with an OKSANA <=16 predicts susceptibility to the oral agentscefaclor, cefdinir, cefpodoxime, cefprozil, cefuroxime, cephalexin,and loracarbef when used for therapy of uncomplicated urinary tractinfections due to E. coli, Klebsiella pneumoniae, and Proteusmirabilis. PATIENT NOT FASTINGP ERFORMED BY: [employer] [place] [id number] Information: SRC: Bacteria identified Cx Nom (U) Final report Abnormal [facility] Work Phone: Comment on above: PATIENT NOT FASTINGP ERFORMED BY: [employer] [place] [id number] Information: SRC:CARLOS ALBERTO Other Antibiotic [Susc] MIHEAD Normal [facility] Work Phone: Comment on above: S = Susceptible; I = Intermediate; R = Resistant P = Positive; N = Negative MICS are expressed in micrograms per mL Antibiotic RSLT#1 RSLT#2 RSLT#3 RSLT#4Amoxicillin/Clavulanic Acid SAmpicillin SCefepime SCeftriaxone SCefuroxime SCiprofloxacin SErtapenem SGentamicin SImipenem SLevofloxacin SMeropenem SNitrofurantoin SPiperacillin/Tazobactam STetracycline STobramycin STrimethoprim/Sulfa S PATIENT NOT FASTINGP ERFORMED BY: [employer] [place] [id number] Information: SRC:CARLOS ALBERTO Urinalysis, Office ([id number])Or dered By: Del Corea on 05-14-2020 Bilirubin Ql (U) Negative Normal Compre[facility] ns[facility] Work Phone: Glucose Test strip (U) [Mass/Vol] Negative Normal [facility] Work Phone: Hemoglobin Ql (U) Negative Normal Compreh [facility] Work Phone: Ketones Ql (U) Moderate Normal Comprehens [facility] Work Phone: Leukocyte esterase Test strip Ql (U) Moderate Normal [facility] Work Phone: Nitrite Ql (U) + Abnormal [facility] Work Phone: pH (U) 8 [pH] Abnormal [facility] Work Phone: Protein Ql (U) Negative Normal [facility] Work Phone: Specific gravity (U) [Rel density] 1.010 1 Normal [facility] Work Phone: Urobilinogen (24H U) [Mass/Time] Normal Normal [facility] Work Phone: Urinalysis, Office ([id number])Or dered By: Del Daily on 05-14-2020 Bilirubin Ql (U) Negative Normal [facility]; [facility] Work Phone: Glucose Test strip (U) [Mass/Vol] Negative Normal [facility]; [facility] Work Phone: Hemoglobin Ql (U) Negative Normal Compre[facility]; [facility] Work Phone: Protein Ql (U) Negative Normal Comprehens [facility]; [facility] Work Phone: GLUCOSE ([id number])Ordered By: S ystem Bottle Gauger on 01-01-2020 Glucose [Mass/Vol] 82 mg/dL Normal 65-99 Compre hens[facility] Work Phone: Comment on above: PATIENT WAS FASTINGP ERFORMED BY: EDE [facility] [id number] [facility] [id number] LIPID PANEL ([id number])Ordered B y: Chief Of Field Operations on 01-01-2020 Cholesterol [Mass/Vol] 163 mg/dL Normal 100-199 [facility] Work Phone: Comment on above: PATIENT WAS FASTINGP ERFORMED BY: EDE [facility] [id number] [address] [place] [id number] Cholesterol in HDL [Mass/Vol] 59 mg/dL Normal [facility] Work Phone: Comment on above: PATIENT WAS FASTINGP ERFORMED BY: EDE [facility] [id number] [address] [place] [id number] Cholesterol in LDL [Mass/Vol] 80 mg/dL Normal 0-99 [facility] Work Phone: Comment on above: PATIENT WAS FASTINGP ERFORMED BY: EDE [facility] [id number] [address] [place] [id number] Cholesterol in LDL/Cholesterol in HDL [Mass ratio] 1.4 {ratio} Normal 0.0-3.2 [facility] Work Phone: Comment on above: LDL/HDL Ratio Men Wo men 1/2 Avg.Risk 1.0 1.5 Avg.Risk 3.6 3.2 2X Avg.Risk 6.2 5.0 3X Avg.Risk 8.0 6.1 PATIENT WAS FASTINGP ERFORMED BY: EDE [facility] [id number] [address] [place] [id number] Cholesterol in VLDL [Mass/Vol] 24 mg/dL Normal 5-40 [facility] Work Phone: Comment on above: PATIENT WAS FASTINGP ERFORMED BY: EDE [facility] [id number] [address] [place] [id number] Triglyceride [Mass/Vol] 119 mg/dL Normal 0-149 [facility] Work Phone: Comment on above: PATIENT WAS FASTINGP ERFORMED BY: EDE [facility] [id number] [address] [place] [id number] Vital Signs Date Time Vital Sign Value Performing Clinician Facility 04-08-2023 13:17-040 Body height 163.83 cm [facility]; [facility] Work Phone: 04-08-2023 13:17-0400 Body mass index (BMI) [Ratio] 25.41 kg/m2 [facility]; [facility] Work Phone: 04-08-2023 13:17-0400 Body surface area Derived from formula 1.74 m2 [facility]; [facility] Work Phone: 04-08-2023 13:17-0400 Body temperature 97.7 [degF] [facility]; [facility] Work Phone: 04-08-2023 13:17-0400 Body weight 68.21 kg [facility]; [facility] Work Phone: 04-08-2023 13:17-0400 Diastolic blood pressure 60 mm[Hg] [facility]; [facility] Work Phone: Comment on above: Patient Position: Sitting; Cuff Location : Left Arm; Cuff Size: Standard 04-08-2023 13:17-0400 Heart rate 77 /min [facility]; [facility] Work Phone: Comment on above: Pattern: Regular 04-08-2023 13:17-0400 Respiratory rate 18 /min [facility]; [facility] Work Phone: Comment on above: Pattern: Unlabored 04-08-2023 13:17-0400 SaO2% (BldA) [Mass fraction] 97 % [facility]; [facility] Work Phone: Comment on above: Room air 04-08-2023 13:17-0400 Systolic blood pressure 120 mm[Hg] [facility]; [facility] Work Phone: Comment on above: Patient Position: Sitting; Cuff Location : Left Arm; Cuff Size: Standard 12-02-2022 14:40-0500 Body height 163.83 cm Wally Fitch [facility]; [facility] Work Phone: 12-02-2022 14:40-0500 Body mass index (BMI) [Ratio] 25.41 kg/m2 [facility]; [facility] Work Phone: 12-02-2022 14:40-0500 Body surface area Derived from formula 1.74 m2 [facility]; [facility] Work Phone: 12-02-2022 14:40-0500 Body temperature 96.9 [degF] [facility]; [facility] Work Phone: 12-02-2022 14:40-0500 Body weight 68.21 kg Wally [facility]; [facility] Work Phone: 12-02-2022 14:40-0500 Diastolic blood pressure 70 mm[Hg] [facility]; [facility] Work Phone: Comment on above: Patient Position: Sitting; Cuff Location : Left Arm; Cuff Size: Standard 12-02-2022 14:40-0500 Heart rate 89 /min [facility]; [facility] Work Phone: Comment on above: Pattern: Regular 12-02-2022 14:40-0500 Respiratory rate 16 /min [facility]; [facility] Work Phone: Comment on above: Pattern: Unlabored 12-02-2022 14:40-0500 SaO2% (BldA) [Mass fraction] 98 % [facility]; [facility] Work Phone: Comment on above: Room air 12-02-2022 14:40-0500 Systolic blood pressure 116 mm[Hg] [facility]; [facility] Work Phone: Comment on above: Patient Position: Sitting; Cuff Location : Left Arm; Cuff Size: Standard 12-29-2021 11:33-0500 Body height 163.83 cm Mila Joiner LPN [facility]; [facility] Work Phone: Comment on above: none reported, virtaul partial reported, by patient,virtaul 12-29-2021 11:33-0500 Body mass index (BMI) [Ratio] 24.68 kg/m2 Mila Joiner RETREAD TECHNICIAN [facility]; [facility] Work Phone: Comment on above: none reported, virtaul partial reported, by patient,virtaul 12-29-2021 11:33-0500 Body surface area Derived from formula 1.72 m2 Mila Joiner [facility]; [facility] Work Phone: Comment on above: none reported, virtaul partial reported, by patient,virtaul 12-29-2021 11:33-0500 Body weight 66.24 kg Mila Joiner [facility]; [facility] Work Phone: Comment on above: none reported, virtaul partial reported, by patient,virtaul 12-29-2021 11:33-0500 Diastolic blood pressure 76 mm[Hg] Angelica Zamudioon DO Work Phone: [facility]; [facility] Work Phone: Comment on above: Patient Position: Sitting partial reported, by patient,scottaul 12-29-2021 11:33-0500 Heart rate 88 /min Angelica Sharpe DO Work Phone: [facility]; [facility] Work Phone: Comment on above: Pattern: Regular partial reported, by patient,virtaul 12-29-2021 11:33-0500 Systolic blood pressure 118 mm[Hg] Angelica Zamudioon DO Work Phone: [facility]; [facility] Work Phone: Comment on above: Patient Position: Sitting partial reported, by patient,virtaul 01-02-2021 09:33-0500 BMI (Body Mass Index) 24.68 kg/m2 Yoli Gravgris [facility]; [facility] Work Phone: 01-02-2021 09:33-0500 Body Temperature 97 [degF] Yoli Gravius [facility]; [facility] Work Phone: Comment on above: Method: Infrared 01-02-2021 09:33-0500 Body weight 66.24 kg Yoli Paige CMA [facility]; [facility] Work Phone: 01-02-2021 09:33-0500 BP Diastolic 62 mm[Hg] Yoli Paige CMA [facility]; [facility] Work Phone: Comment on above: Patient Position: Sitting; Cuff Location : Left Arm; Cuff Size: Standard 01-02-2021 09:33-0500 BP Systolic 94 mm[Hg] Yoli Paige CMA [facility]; [facility] Work Phone: Comment on above: Patient Position: Sitting; Cuff Location : Left Arm; Cuff Size: Standard 01-02-2021 09:33-0500 BSA (Body Surface Area) 1.72 m2 Yoli Paige CMA [facility]; [facility] Work Phone: 01-02-2021 09:33-0500 Height 163.83 cm Yoli Paige CMA [facility]; [facility] Work Phone: 01-02-2021 09:33-0500 Pulse (Heart Rate) 71 /min Yoli Paige CMA [facility]; [facility] Work Phone: Comment on above: Pattern: Regular 01-02-2021 09:33-0500 Pulse Oximetry 99 % Angelica Sharpe [facility]; [facility] Work Phone: Comment on above: Room air 01-02-2021 09:33-0500 Respiratory Rate 16 /min Yoli Paige CMA [facility]; [facility] Work Phone: Comment on above: Pattern: Unlabored 01-02-2021 09:33-0500 SaO2% (BldA) [Mass fraction] 99 % Yoli Paige [facility]; Comprehensive Internal Medicine Work Phone: Comment on above: Room air 05-14-2020 08:06-0400 BMI (Body Mass Index) 24.34 kg/m2 Del Daily LPN [facility] Work Phone: 05-14-2020 08:06-0400 Body Temperature 96.9 [degF] Del Daily LPN [facility] Work Phone: Comment on above: Method: Infrared 05-14-2020 08:06-0400 Body weight 65.34 kg Del Daily LPN [facility] Work Phone: 05-14-2020 08:06-0400 BP Diastolic 68 mm[Hg] Del Daily LPN [facility] Work Phone: Comment on above: Patient Position: Sitting; Cuff Location : Left Arm; Cuff Size: Standard 05-14-2020 08:06-0400 BP Systolic 110 mm[Hg] Del Daily LPN [facility] Internal Medicine Work Phone: Comment on above: Patient Position: Sitting; Cuff Location : Left Arm; Cuff Size: Standard 05-14-2020 08:06-0400 BSA (Body Surface Area) 1.71 m2 Del Daily LPN [facility] Work Phone: 05-14-2020 08:06-0400 Height 163.83 cm Del Daily RETREAD TECHNICIAN [facility] Work Phone: 05-14-2020 08:06-0400 Pulse (Heart Rate) 107 /min Del Daily LPN Com[facility] Medicine Work Phone: Comment on above: Pattern: Regular 05-14-2020 08:06-0400 Pulse Oximetry 99 % Angelica Sharpe [facility] Internal Medicine Work Phone: Comment on above: Room air 05-14-2020 08:06-0400 Respiratory Rate 16 /min Del Daily LPN [facility] Work Phone: Comment on above: Pattern: Unlabored 05-14-2020 08:06-0400 SaO2% (BldA) [Mass fraction] 99 % Del Daily LPN [facility] Internal Medicine; [facility] Work Phone: Comment on above: Room air 01-01-2020 11:34-0400 BMI (Body Mass Index) 24.5 kg/m2 Yoli Kiloius [facility] Work Phone: 01-01-2020 11:34-0400 Body Temperature 97.3 [degF] Yoli Paige CMA Com[facility] Internal Medicine Work Phone: Comment on above: Method: Temporal 01-01-2020 11:34-0400 Body weight 65.77 kg Yoli Paige CMA [facility] Work Phone: 01-01-2020 11:34-0400 BP Diastolic 66 mm[Hg] Yoli Paige LUBRICATING MACHINE TENDER [facility] Work Phone: Comment on above: Patient Position: Sitting; Cuff Location : Left Arm; Cuff Size: Standard 01-01-2020 11:34-0400 BP Systolic 118 mm[Hg] Yoli Paige CMA [facility] Work Phone: Comment on above: Patient Position: Sitting; Cuff Location : Left Arm; Cuff Size: Standard 01-01-2020 11:34-0400 BSA (Body Surface Area) 1.72 m2 Yoli Paige LUBRICATING MACHINE TENDER [facility] Work Phone: 01-01-2020 11:34-0400 Height 163.83 cm Yoli Paige LUBRICATING MACHINE TENDER [facility] Work Phone: 01-01-2020 11:34-0400 Pulse (Heart Rate) 64 /min Yoli Paige CMA Comprehens clarence Internal Medicine Work Phone: Comment on above: Pattern: Regular 01-01-2020 11:34-0400 Pulse Oximetry 98 % Angelica Sharpe [facility] Work Phone: Comment on above: Room air 01-01-2020 11:34-0400 Respiratory Rate 18 /min Yoli Paige CMA Comprehens[facility] e Internal Medicine Work Phone: Comment on above: Pattern: Unlabored 01-01-2020 11:34-0400 SaO2% (BldA) [Mass fraction] 98 % Yoli Paige LUBRICATING MACHINE TENDER [facility]; [facility] Work Phone: Comment on above: Room air Encounters Encounter Date Encounter Type Care Provider Facility Start: 06-20-2024 End: 06-20-2024 ambulatory NOEMI JOHNSON [facility] Start: 04-08-2023 End: 04-09-2023 Office outpatient visit 5 minutes Angelica Sharpe DO Work Phone: [facility] Start: 12-11-2022 End: 12-11-2022 Office outpatient visit 10 minutes Angelica Jeff DO Work Phone: [facility] Start: 12-09-2022 ambulatory Angelicabaltazar Sharpe DO [facility] Start: 12-02-2022 End: 12-02-2022 Patient encounter status Angelica Sharpe DO Work Phone: [facility]; [facility] Work Phone: Start: 12-02-2022 End: 12-02-2022 Periodic preventive med est patient 18-39 yrs Angelica Sharpe DO Work Phone: [facility] Start: 12-29-2021 End: 12-29-2021 Office outpatient visit 15 minutes Angelica Sharpe DO Work Phone: [facility] Start: 12-29-2021 Review Angelica Zamudioo n DO Work Phone: [facility] Start: 12-19-2021 End: 12-19-2021 Subsequent hospital visit by physician Phyllis Harris MD Work Phone: [facility] Start: 01-02-2021 End: 01-02-2021 Patient encounter status Angelica Sharpe DO Work Phone: [facility]; [facility] Work Phone: Start: 01-02-2021 End: 01-02-2021 Periodic preventive med est patient 18-39 yrs Angelica Sharpe [facility] Start: 09-17-2020 End: 09-17-2020 Patient encounter procedure [facility] Start: 05-14-2020 End: 05-14-2020 Office outpatient visit 15 minutes Angelica Sharpe [facility] Start: 01-01-2020 End: 01-01-2020 Initial preventive medicine new pt age 18-39yrs Angelica Sharpe [facility] Start: 01-01-2020 End: 01-01-2020 Patient encounter status Angelica Sharpe DO Work Phone: [facility] Patient encounter status Del Daily RETREAD TECHNICIAN [facility]; [facility] Work Phone: Patient encounter status Mila Joiner RETREAD TECHNICIAN [facility]; [facility] Work Phone: Patient encounter status Wally Walkerford [facility]; [facility] Work Phone: Patient encounter status Wally Walkerford [facility]; [facility] Work Phone: Patient encounter status Skyler Ibrahim RETREAD TECHNICIAN [facility]; [facility] Work Phone: Procedures Date Procedure Procedure Detail Performing Clinician Start: 12-01-2022 End: 12-01-2022 Physical Meteorologist Office Visit Report Procedure Note: See Note; NOTES: [facility] [address] [place] [address] OFFICE VISIT Date of Service: 12/01/22 MR#: [id number] Acct: [id number] Name: CHELI GA Rep #: [id number] : 1990 Provider: Dr. Shanita drake MD Age/Sex: 32/F Location: [facility] Status: Signed Intake Vital Signs 10/19/22 07:15 12/01/22 14:08 12/01/22 14:08 Height 5 ft 4 in 5 ft 4 in 5 ft 4 in Weight: 151 lb BMI 25.9 BP 109/74 Intake Visit Reasons: 6 WK PP, declined IUd Chief Complaint: 6w pp declines IUD Framing Mechanic Required: No Is patient in pain?: No Allergies No Known Allergies Allergy (Verified 10/19/22 07:17) : Yes [facility] Medical History Kidney stones, calcium oxalate Lab test positive for detection of COVID-19 virus Surgical History History of tonsillectomy Social History Smoking Status: Never smoker alcohol intake: never substance use type: does not use caffeine: Yes what type of physical activity do you participate in: walking seatbelt use: always do you feel safe at home: Yes additional social history: Shahid Theodore 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 Date Name GA/Weeks Outcome Route Bth Weight Infant Gen Labor Lgth Anesthesia Del Locatn Provider FOB Unknown 2017 Ender live - full term Female Francine Landers spital 10/20/22 Teresa 39 live - full term Female [facility] Dr. Hendrix Delivery Date: 10/20/22 Last Updated by: Colette Ling IOL, IVF, atony uterus Depression Screen PHQ-2/9 PHQ-2 Over the last 2 weeks, how often have you been bothered by any of the following problems? 1. Little interest or pleasure in doing things: not at all 2. Feeling down, depressed, or hopeless: not at all Total score: 0 Post HPI 6 WK PP, declined IUd: Details: CHELI GA is a 32 year old who presents for her post visit. Feeding: Bottle Menses resumed: No Avimor since delivery: No ROS Const Reports system reviewed and no additional complaints, except as documented GI Reports system reviewed and no additional complaints, except as documented, Denies bloating, Denies constipation, Denies nausea and Denies vomiting Reports system reviewed and no additional complaints, except as documented, Denies abnormal vaginal bleeding, Denies pelvic pain, Denies sexual dysfunction, Denies urinary incontinence, Denies urinary hesitancy, Denies urinary urgency and Denies vaginal discharge Skin/Breast Reports system reviewed and no additional complaints, except as documented and Reports as per HPI Psych Reports as per HPI Exam Const General: cooperative, healthy appearing, comfortable and no acute distress HENIN Head: normal to inspection Neck Neck: normal visual inspection and no lymphadenopathy Thyroid: thyroid normal Chest Breast inspection: normal inspection of the breasts and normal inspection of the axillae Breast palpation: normal palpation of the breasts and normal palpation of the axillae Resp Effort Inspection: normal respiratory effort GI Inspection: normal to inspection Palpation: soft, no hepatosplenomegaly and nontender General: bladder normal to palpation External Female Exam: normal external appearance and normal appearance of the urethra Urethra: normal appearance of the urethra Speculum Exam - Vagina: normal appearance of the vagina and normal vaginal discharge Speculum Exam - Cervix: normal appearance of the cervix Bimanual Exam- Vagina Uterus: normal bimanual exam, uterine size normal, bladder normal to palpation, uterine shape normal and non-tender Bimanual Exam- Adnexa, other: normal adnexae and normal Pelvic Support: normal Skin General: no rashes or lesions noted Coding Level of Care Code No Charge Diagnoses care and examination Z39.2 Assessment and Plan Assessment and Plan (1) care and examination: Plan: Cervical cancer screening: pap up to date Contraceptive plans: NFP Complications: none Follow up for annual exams or sooner if indicated. 12/01/22 1430 <Electronically signed by Shanita Hendrix MD> Date Shanita Hendrix MD [facility] Signature: Date (if applicable) CC: Angelica Sharpe DO Work Phone: Start: 10-14-2022 End: 10-14-2022 Physical Meteorologist Office Visit Report Procedure Note: See Note; NOTES: [facility] [address] [place] [address]. [address] [place] [address] OFFICE VISIT Date of Service: 10/14/22 MR#: [id number] Acct: [id number] Name: CHELSEADACIARenea Morales Rep #: [id number] : 1990 Provider: VIRGEN christian Age/Sex: 32/F Location: [facility] Status: Signed Intake Vital Signs 08/04/22 11:27 10/14/22 09:12 10/14/22 09:15 Height 5 ft 4 in 5 ft 4 in 5 ft 4 in Weight: 160 lb 2 oz BMI 27.4 BP 116/76 Intake Visit Reasons: 38WK OB / NST Chief Complaint: 38w3d Framing Mechanic Required: No Is patient in pain?: No Allergies No Known Allergies Allergy (Verified 10/14/22 09:12) Medications lactobacillus combination no.8 3 billion cell capsule (Adult Probiotic) 3,000 mmu cells PO DAILY 03/01/19 [History Confirmed 10/14/22] docosahexaenoic acid 200 mg capsule ( DHA) mg PO 12/03/20 [History Confirmed 10/14/22] aspirin 81 mg tablet,delayed release 81 mg PO DAILY 06/12/22 [History Confirmed 10/14/22] famotidine 20 mg tablet (Pepcid AC) 20 mg PO DAILY 08/31/22 [History Confirmed 10/14/22] Last Menstrual Period: 01/18/22 Zika: Zika virus screening: Negative : No PFSH PFSH Medical History Kidney stones, calcium oxalate Lab test positive for detection of COVID-19 virus Surgical History History of tonsillectomy Social History Smoking Status: Never smoker alcohol intake: never substance use type: does not use caffeine: Yes what type of physical activity do you participate in: walking seatbelt use: always do you feel safe at home: Yes additional social history: AdrianVetr Arben 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 Date Name GA/Weeks Outcome Route Bth Weight Infant Gen Labor Lgth Anesthesia Del Locatn Provider FOB Unknown 2018 Renley live - full term Female Francine Landers spital HPI 38WK OB / NST Details: CHELI GA is a 32 year old who presents for routine OB visit. OB Visit MARKIE Calculator Estimated Delivery Date Method Current WG Current Estimate 10/25/22 LMP (Certain) 38w 3d Expected Delivery Route/Plan Labor Preferences- CB/BF classes: no labor support person: Adrian labor intervention preferences: [] pain management options preferred: epidural cut cord/dad catch: cord : no PP control planned: discussed discussed possible routes of delivery and associated risks: [] special requests: [] Specific Issue/Plans Covid status: no Flu vaccine: no Tdap vaccine: given Rhogam: na LARC form signed: yes Problem list reviewed and updated with the most current plan of care details and appropriate orders placed. Relevant counseling for the gestational age provided. Continue routine care and follow up unless otherwise noted in visit notes/problem list details Initial Weight: Not Recorded Date -???-???-???-???-???-???-?? ?-???-???-???-???-???- EGA Weight BP Urine Prot -???-???-???-???-???-???-?? ?-???-???-???-???-???- Glucose FHR FuHt Pres Dilation -???-???-???-???-???-???-?? ?-???-???-???-???-???- Effaced St Visit Note 04/17/22 -???-???-???-???-???-???-?? ?-???-???-???-???-???- 12w 5d 147 lb -???-???-???-???-???-???-?? ?-???-???-???-???-???- 160 -???-???-???-???-???-???-?? ?-???-???-???-???-???- JV- CRL cons istent with established GA. IVF transfer. 05/15/22 -???-???-???-???-???-???-?? ?-???-???-???-???-???- 16w 5d 147 lb 103/69 -???-???-???-???-???-???-?? ?-???-???-???-???-???- 150 -???-???-???-???-???-???-?? ?-???-???-???-???-???- SM- no vb cr amping still having vomiting 06/12/22 -???-???-???-???-???-???-?? ?-???-???-???-???-???- 20w 5d 149 lb 108/66 Negative -???-???-???-???-???-???-?? ?-???-???-???-???-???- Negative 155 -???-???-???-???-???-???-?? ?-???-???-???-???-???- JV- nolof, v aginal bleeding, or spotting. 07/17/22 -???-???-???-???-???-???-?? ?-???-???-???-???-???- 25w 5d 157 lb 3.2 oz 110/66 Negati ve -???-???-???-???-???-???-?? ?-???-???-???-???-???- Negative 145 -???-???-???-???-???-???-?? ?-???-???-???-???-???- JV- no lof, v aginal bleeding, or cramping. Glucola ordered 08/04/22 -???-???-???-???-???-???-?? ?-???-???-???-???-???- 28w 2d 158 lb 2 oz 112/78 Negative -???-???-???-???-???-???-?? ?-???-???-???-???-???- Negative 147 28 -???-???-???-???-???-???-?? ?-???-???-???-???-???- -No NELSON, [address] FM. 28 wk labs, larc, tdap. 32 and 36 wk growth US ordered. NSTs wkly at 36 wk scheduled. declines flu 08/18/22 -???-???-???-???-???-???-?? ?-???-???-???-???-???- 30w 2d 159 lb 4 oz Negative -???-???-???-???-???-???-?? ?-???-???-???-???-???- Negative -???-???-???-???-???-???-?? ?-???-???-???-???-???- JV- pt here for CVA tenderness and h/o kidney stones. urine was clear. ordering renal ultrasound. oferred to send to L D or ER for fluids and declines. will be back wednesday for exam 08/21/22 -???-???-???-???-???-???-?? ?-???-???-???-???-???- 30w 5d 158 lb 106/60 Negative -???-???-???-???-???-???-?? ?-???-???-???-???-???- Negative 140 30 -???-???-???-???-???-???-?? ?-???-???-???-???-???- SM- still russo ving some urinary frequency and urgency, 08/31/22 -???-???-???-???-???-???-?? ?-???-???-???-???-???- 32w 1d 160 lb 6 oz 120/76 Negative -???-???-???-???-???-???-?? ?-???-???-???-???-???- Negative 146 32 -???-???-???-???-???-???-?? ?-???-???-???-???-???- LC- urinary symptoms have resolved. finished abx on wednesday. will repeat uc in 4 weeks. has growth scan maddi for tomorrow. -increase prevacid to BID-continued GERD. good fm, denies lof,vb,ctx. 09/15/22 -???-???-???-???-???-???-?? ?-???-???-???-???-???- 34w 2d 160 lb 113/74 Negative -???-???-???-???-???-???-?? ?-???-???-???-???-???- Negative 169 34 -???-???-???-???-???-???-?? ?-???-???-???-???-???- JV- no lof, vaginal bleeding, or dec fm. need urine culture at 36 weeks. growth scan also pending. 10/02/22 -???-???-???-???-???-???-?? ?-???-???-???-???-???- 36w 5d 163 lb 4 oz 103/70 Negative -???-???-???-???-???-???-?? ?-???-???-???-???-???- Negative 140 36 -???-???-???-???-???-???-?? ?-???-???-???-???-???- JV- no compl aints today. gbs collected NST reactive . 10/09/22 -???-???-???-???-???-???-?? ?-???-???-???-???-???- 37w 5d 162 lb 4 oz 120/81 Negative -???-???-???-???-???-???-?? ?-???-???-???-???-???- Negative 130 37 -???-???-???-???-???-???-?? ?-???-???-???-???-???- JV- nst reac tive. plan for pelvic exam and set up 39 week IOL next visit 10/14/22 -???-???-???-???-???-???-?? ?-???-???-???-???-???- 38w 3d 160 lb 2 oz 116/76 Negative -???-???-???-???-???-???-?? ?-???-???-???-???-???- Negative 135 -???-???-???-???-???-???-?? ?-???-???-???-???-???- LC- reactive NST. no ctx/lof/vb. good fm. iol set up b/n 39-40 weeks for IVF. LC- reactive NST. no ctx/lof/vb. g ood fm. iol set upat 7am on 10/19/22 w/ cytotec. ACOG First Trimester First Trimester: Discussed Second Trimester Second Trimester: Signs and Symptoms of Labor, Selecting a care provider, Reproductive Life Planning Contreception, Care Planning, Depression/Anxiety and Intimate Partner Violence; Discussed Tobacco Cessation Third Trimester Third Trimester: Pain Management Plans, Labor support person(s), Immediate Larc, Circumcision preference, Movement Monitoring, Signs and Symptoms of Preeclampsia, Infant Feeding No , [place] [employer] and Family Medical Leave or Disability Forms Diagnostics Diagnostics Diagnostics: Glucose 1 Hr 50 gm 124 mg/dL (70-140) Hgb 12.0 g/dL (12.0-15.0) Hct 35.0 % (37-47) L Details: HIV: Urine Culture: Sequential Screen: NIPT Screen: ROS Const Denies anorexia, Denies body aches, Denies chills, Denies daytime sleepiness, Denies difficulty sleeping, Denies fever(s), Denies frequent falls, Denies headache(s), Denies increased appetite and Denies poor appetite ENT Denies headache(s) Card Denies chest pain GI Denies abdominal pain, Denies nausea and Denies vomiting Denies urinary hesitancy and Denies urinary urgency Neuro No frequent falls and No headache(s) Exam Const Orientation: alert, awake and oriented x3 [facility] Head: normocephalic Eyes Pupils: PERRL Neck Neck: full ROM Resp Effort Inspection: normal respiratory effort, able to speak in complete sentences and symmetric chest movement GI Palpation: soft OB/External Speculum: other (fundus appriopriate for GA) Results POC Urinalysis 2 Dip (Clinic) Office Urine Glucose Negative Last Edit by Rica Allen on 10/14/22 09:22 Office Urine Protein Negative Last Edit by Rica Allen on 10/14/22 09:22 Coding Level of Care Code OB Routine Diagnoses History of kidney stones Z87.442 History of tetanus, diphtheria, and acellular pertussis booster vaccination (Tdap) Z92.29 Lab test positive for detection of COVID-19 virus U07.1 conceived through in vitro fertilization O09.819 Z3A.38 Weeks of gestation: 38 weeks Supervision of high risk in first trimester O09.91 Infertility Assessment and Plan Assessment and Plan (1) History of kidney stones: Status: Acute (2) History of tetanus, diphtheria, and acellular pertussis booster vaccination (Tdap): Status: Acute Comment: 08/04/22 (3) Lab test positive for detection of COVID-19 virus: Status: Acute Comment: 81 mg ASA, 32 36 wk growth US (4) conceived through in vitro fertilization: Status: Acute Comment: discussed echo at 22-24 weeks and growth us/weekly nsts at 36 weeks, IOL by 39-40(if possible would prefer after kristin) nl ech 07/03 (5) : Status: Acute Qualifiers: Weeks of gestation: 38 weeks Qualified Code(s): Z3A.38 - 38 weeks gestation of Comment: GBS neg. Genetics done on embryos prior to transfer, carrier testing negative, NIPT nl, Anatomy US nl except for echogenic foci- echo 06/30/22, 09/01/22 nl growth 80% 2236gm =/- 335gms., 09/30 36wk nl growth EFW 3051+/- 458 68%. (6) Supervision of high risk in first trimester: Status: Acute Comment: PRR MARKIE 10/25/22 surprise SB Handley : Adrian (7) Infertility: Status: Chronic Comment: conceived with IUI last , sees RGI Orders: Orders POC Urinalysis 2 Dip (Clinic) Today Plan Details Additional Comments: movement and labor precautions reviewed. ACOG trimester education reviewed and updated. see problem list details for updated plan management information and see below for orders placed at this visit. GA appropriate handout given. 10/14/22 1005 <Electronically signed by Becki Reddy CNM> Date Becki Reddy CNM Cosigner Signature: Date (if applicable) CC: Angelica Sharpe DO Work Phone: Start: 10-09-2022 End: 10-09-2022 Physical Meteorologist Office Visit Report Procedure Note: See Note; NOTES: [facility] [address] [place] [address] OFFICE VISIT Date of Service: 10/09/22 MR#: [id number] Acct: [id number] Name: CHELI GA Rep #: [id number] : 1990 Provider: Dr. Noemi Glynn DO Age/Sex: 32/F Location: [facility] Status: Signed Intake Vital Signs 08/04/22 11:27 10/09/22 13:25 10/09/22 13:34 Height 5 ft 4 in 5 ft 4 in 5 ft 4 in Weight: 162 lb 4 oz BMI 27.8 BP 120/81 H Intake Visit Reasons: 37WK OB / NST Framing Mechanic Required: No Is patient in pain?: No Allergies No Known Allergies Allergy (Verified 10/09/22 13:33) Medications lactobacillus combination no.8 3 billion cell capsule (Adult Probiotic) 3,000 mmu cells PO DAILY 03/01/19 [History Confirmed 10/09/22] docosahexaenoic acid 200 mg capsule ( DHA) mg PO 12/03/20 [History Confirmed 10/09/22] aspirin 81 mg tablet,delayed release 81 mg PO DAILY 06/12/22 [History Confirmed 10/09/22] famotidine 20 mg tablet (Pepcid AC) 20 mg PO DAILY 08/31/22 [History Confirmed 10/09/22] Last Menstrual Period: 01/18/22 Zika: Zika virus screening: Negative : No PFSH PFSH Medical History Kidney stones, calcium oxalate Lab test positive for detection of COVID-19 virus Surgical History History of tonsillectomy Social History Smoking Status: Never smoker alcohol intake: never substance use type: does not use caffeine: Yes what type of physical activity do you participate in: walking seatbelt use: always do you feel safe at home: Yes additional social history: Shahid Theodore 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 Date Name GA/Weeks Outcome Route Bth Weight Infant Gen Labor Lgth Anesthesia Del Locatn Provider FOB Unknown 2018 [place] live - full term Female Francine waters HPI 37WK OB / NST Details: CHELI GA is a 32 year old who presents for routine OB visit. OB Visit MARKIE Calculator Estimated Delivery Date Method Current WG Current Estimate 10/25/22 LMP (Certain) 37w 5d Expected Delivery Route/Plan Labor Preferences- CB/BF classes: no labor support person: Adrian labor intervention preferences: [] pain management options preferred: epidural cut cord/dad catch: cord : no PP control planned: discussed discussed possible routes of delivery and associated risks: [] special requests: [] Specific Issue/Plans Covid status: no Flu vaccine: no Tdap vaccine: given Rhogam: na LARC form signed: yes Problem list reviewed and updated with the most current plan of care details and appropriate orders placed. Relevant counseling for the gestational age provided. Continue routine care and follow up unless otherwise noted in visit notes/problem list details Initial Weight: Not Recorded Date -???-???-???-???-???-???-?? ?-???-???-???-???-???- EGA Weight BP Urine Prot -???-???-???-???-???-???-?? ?-???-???-???-???-???- Glucose FHR FuHt Pres Dilation -???-???-???-???-???-???-?? ?-???-???-???-???-???- Effaced St Visit Note 04/17/22 -???-???-???-???-???-???-?? ?-???-???-???-???-???- 12w 5d 147 lb -???-???-???-???-???-???-?? ?-???-???-???-???-???- 160 -???-???-???-???-???-???-?? ?-???-???-???-???-???- JV- CRL cons istent with established GA. IVF transfer. 05/15/22 -???-???-???-???-???-???-?? ?-???-???-???-???-???- 16w 5d 147 lb 103/69 -???-???-???-???-???-???-?? ?-???-???-???-???-???- 150 -???-???-???-???-???-???-?? ?-???-???-???-???-???- SM- no vb cr amping still having vomiting 06/12/22 -???-???-???-???-???-???-?? ?-???-???-???-???-???- 20w 5d 149 lb 108/66 Negative -???-???-???-???-???-???-?? ?-???-???-???-???-???- Negative 155 -???-???-???-???-???-???-?? ?-???-???-???-???-???- JV- nolof, v aginal bleeding, or spotting. 07/17/22 -???-???-???-???-???-???-?? ?-???-???-???-???-???- 25w 5d 157 lb 3.2 oz 110/66 Negati ve -???-???-???-???-???-???-?? ?-???-???-???-???-???- Negative 145 -???-???-???-???-???-???-?? ?-???-???-???-???-???- JV- no lof, v aginal bleeding, or cramping. Glucola ordered 08/04/22 -???-???-???-???-???-???-?? ?-???-???-???-???-???- 28w 2d 158 lb 2 oz 112/78 Negative -???-???-???-???-???-???-?? ?-???-???-???-???-???- Negative 147 28 -???-???-???-???-???-???-?? ?-???-???-???-???-???- -No NELSON, HILLARY Day. Jad FM. 28 wk labs, larc, tdap. 32 and 36 wk growth US ordered. NSTs wkly at 36 wk scheduled. declines flu 08/18/22 -???-???-???-???-???-???-?? ?-???-???-???-???-???- 30w 2d 159 lb 4 oz Negative -???-???-???-???-???-???-?? ?-???-???-???-???-???- Negative -???-???-???-???-???-???-?? ?-???-???-???-???-???- JV- pt here for CVA tenderness and h/o kidney stones. urine was clear. ordering renal ultrasound. oferred to send to L D or ER for fluids and declines. will be back wednesday for exam 08/21/22 -???-???-???-???-???-???-?? ?-???-???-???-???-???- 30w 5d 158 lb 106/60 Negative -???-???-???-???-???-???-?? ?-???-???-???-???-???- Negative 140 30 -???-???-???-???-???-???-?? ?-???-???-???-???-???- - still russo ving some urinary frequency and urgency, 08/31/22 -???-???-???-???-???-???-?? ?-???-???-???-???-???- 32w 1d 160 lb 6 oz 120/76 Negative -???-???-???-???-???-???-?? ?-???-???-???-???-???- Negative 146 32 -???-???-???-???-???-???-?? ?-???-???-???-???-???- LC- urinary symptoms have resolved. finished abx on wednesday. will repeat uc in 4 weeks. has growth scan maddi for tomorrow. -increase prevacid to BID-continued GERD. good fm, denies lof,vb,ctx. 09/15/22 -???-???-???-???-???-???-?? ?-???-???-???-???-???- 34w 2d 160 lb 113/74 Negative -???-???-???-???-???-???-?? ?-???-???-???-???-???- Negative 169 34 -???-???-???-???-???-???-?? ?-???-???-???-???-???- JV- no lof, vaginal bleeding, or dec fm. need urine culture at 36 weeks. growth scan also pending. 10/02/22 -???-???-???-???-???-???-?? ?-???-???-???-???-???- 36w 5d 163 lb 4 oz 103/70 Negative -???-???-???-???-???-???-?? ?-???-???-???-???-???- Negative 140 36 -???-???-???-???-???-???-?? ?-???-???-???-???-???- JV- no compl aints today. gbs collected NST reactive . 10/09/22 -???-???-???-???-???-???-?? ?-???-???-???-???-???- 37w 5d 162 lb 4 oz 120/81 Negative -???-???-???-???-???-???-?? ?-???-???-???-???-???- Negative 130 37 -???-???-???-???-???-???-?? ?-???-???-???-???-???- JV- nst reac tive. plan for pelvic exam and set up 39 week IOL next visit ACOG First Trimester First Trimester: Discussed Second Trimester Second Trimester: Signs and Symptoms of Labor, Selecting a care provider, Reproductive Life Planning Contreception, Care Planning, Depression/Anxiety and I ntimate Partner Violence; Discussed Tobacco Cessation Third Trimester Third Trimester: Pain Management Plans, Labor support person(s), Immediate Larc, Circumcision preference, Movement Monitoring, Signs and Symptoms of Preeclampsia, Infant Feeding No , [place] [employer] and Family Medical Leave or Disability Forms Diagnostics Diagnostics Diagnostics: Glucose 1 Hr 50 gm 124 mg/dL (70-140) Hgb 12.0 g/dL (12.0-15.0) Hct 35.0 % (37-47) L Details: HIV: Urine Culture: Sequential Screen: NIPT Screen: Office Procedures Non-stress Test Non-Stress Test Indications for Monitoring: Yes other (IVF) Heart Rate Baseline: 130 Heart Rate Variability: moderate Movement: Present Heart Rate Accelerations: Present Decelerations: Absent Contractions: Absent Impression: Yes Reactive Non-Stress Test Results POC Urinalysis 2 Dip (Clinic) Office Urine Glucose Negative Last Edit by Colette Ling on 10/09/22 13:41 Office Urine Protein Negative Last Edit by Colette Ling on 10/09/22 13:41 Coding Level of Care Code OB Routine Diagnoses UTI (urinary tract infection) N39.0 History of kidney stones Z87.442 History of tetanus, diphtheria, and acellular pertussis booster vaccination (Tdap) Z92.29 Lab test positive for detection of COVID-19 virus U07.1 conceived through in vitro fertilization O09.819 Z3A.37 Weeks of gestation: 37 weeks Supervision of high risk in first trimester O09.91 Infertility CPT Codes Non-Stress Test (16923) Assessment and Plan Assessment and Plan (1) UTI (urinary tract infection): Status: Acute Comment: treated with cephalexin 08/20. repeat uc in 4 weeks. (2) History of kidney stones: Status: Acute (3) History of tetanus, diphtheria, and acellular pertussis booster vaccination (Tdap): Status: Acute Comment: 08/04/22 (4) Lab test positive for detection of COVID-19 virus: Status: Acute Comment: 81 mg ASA, 32 36 wk growth US (5) conceived through in vitro fertilization: Status: Acute Comment: discussed echo at 22-24 weeks and growth us/weekly nsts at 36 weeks, IOL by 39-40(if possible would prefer after kristin) nl ech 07/03 (6) : Status: Acute Qualifiers: Weeks of gestation: 37 weeks Qualified Code(s): Z3A.37 - 37 weeks gestation of Comment: GBS neg. Genetics done on embryos prior to transfer, carrier testing negative, NIPT nl, Anatomy US nl except for echogenic foci- echo 06/30/22, 09/01/22 nl growth 80% 2236gm =/- 335gms., 09/30 36wk nl growth EFW 3051+/- 458 68%. (7) Supervision of high risk in first trimester: Status: Acute Comment: PRR MARKIE 10/25/22 surprise SB Handley : Adrian (8) Infertility: Status: Chronic Comment: conceived with IUI last , sees RGI Orders: Orders OB NST Today O09.819 - Supervision of resulting from assisted reproductive technology, unspecified trimester POC Urinalysis 2 Dip (Clinic) Today 10/09/22 3903 <Electronically signed by Noemi Rowan DO> Date Noemi Rowan DO Cosigner Signature: Date (if applicable) CC: Angelica Sharpe Work Phone: Start: 10-02-2022 End: 10-02-2022 Physical Meteorologist Office Visit Report Procedure Note: See Note; NOTES: [facility] [address] [place] [address] OFFICE VISIT Date of Service: 10/02/22 MR#: [id number] Acct: [id number] Name: CHELI GA Rep #: [id number] : 1990 Provider: Dr. Noemi Glynn DO Age/Sex: 32/F Location: [facility] Status: Signed Intake Vital Signs 08/04/22 11:27 10/02/22 13:35 10/02/22 13:37 Height 5 ft 4 in 5 ft 4 in 5 ft 4 in Weight: 163 lb 4 oz BMI 28.0 BP 103/70 Intake Visit Reasons: 36WK OB / NST Chief Complaint: 36 Week OB/NST Framing Mechanic Required: No Is patient in pain?: No Allergies No Known Allergies Allergy (Verified 10/02/22 13:35) Medications lactobacillus combination no.8 3 billion cell capsule (Adult Probiotic) 3,000 mmu cells PO DAILY 03/01/19 [History Confirmed 10/02/22] docosahexaenoic acid 200 mg capsule ( DHA) mg PO 12/03/20 [History Confirmed 10/02/22] aspirin 81 mg tablet,delayed release 81 mg PO DAILY 06/12/22 [History Confirmed 10/02/22] famotidine 20 mg tablet (Pepcid AC) 20 mg PO DAILY 08/31/22 [History Confirmed 10/02/22] Last Menstrual Period: 01/18/22 Zika: Zika virus screening: Negative : No PFSH PFSH Medical History Kidney stones, calcium oxalate Lab test positive for detection of COVID-19 virus Surgical History History of tonsillectomy Social History Smoking Status: Never smoker alcohol intake: never substance use type: does not use caffeine: Yes what type of physical activity do you participate in: walking seatbelt use: always do you feel safe at home: Yes additional social history: Shahid Theodore 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 Date Name GA/Weeks Outcome Route Bth Weight Gen Labor Lgth Anesthesia Del Locatn Provider FOB Unknown 2018 Renley live - full term Female Francine Landers spital HPI 36WK OB / NST Details: CHELI GA is a 32 year old who presents for routine OB visit. OB Visit MARKIE Calculator Estimated Delivery Date Method Current WG Current Estimate 10/25/22 LMP (Certain) 36w 5d Expected Delivery Route/Plan Labor Preferences- CB/BF classes: no labor support person: Adrian labor intervention preferences: [] pain management options preferred: epidural cut cord/dad catch: cord : no PP control planned: discussed discussed possible routes of delivery and associated risks: [] special requests: [] Specific Issue/Plans Covid status: no Flu vaccine: no Tdap vaccine: given Rhogam: na LARC form signed: yes Problem list reviewed and updated with the most current plan of care details and appropriate orders placed. Relevant counseling for the gestational age provided. Continue routine care and follow up unless otherwise noted in visit notes/problem list details Initial Weight: Not Recorded Date -???-???-???-???-???-???-?? ?-???-???-???-???-???- EGA Weight BP Urine Prot -???-???-???-???-???-???-?? ?-???-???-???-???-???- Glucose FHR FuHt Pres Dilation -???-???-???-???-???-???-?? ?-???-???-???-???-???- Effaced St Visit Note 04/17/22 -???-???-???-???-???-???-?? ?-???-???-???-???-???- 12w 5d 147 lb -???-???-???-???-???-???-?? ?-???-???-???-???-???- 160 -???-???-???-???-???-???-?? ?-???-???-???-???-???- JV- CRL cons istent with established GA. IVF transfer. 05/15/22 -???-???-???-???-???-???-?? ?-???-???-???-???-???- 16w 5d 147 lb 103/69 -???-???-???-???-???-???-?? ?-???-???-???-???-???- 150 -???-???-???-???-???-???-?? ?-???-???-???-???-???- SM- no vb cr amping still having vomiting 06/12/22 -???-???-???-???-???-???-?? ?-???-???-???-???-???- 20w 5d 149 lb 108/66 Negative -???-???-???-???-???-???-?? ?-???-???-???-???-???- Negative 155 -???-???-???-???-???-???-?? ?-???-???-???-???-???- JV- nolof, v aginal bleeding, or spotting. 07/17/22 -???-???-???-???-???-???-?? ?-???-???-???-???-???- 25w 5d 157 lb 3.2 oz 110/66 Negati ve -???-???-???-???-???-???-?? ?-???-???-???-???-???- Negative 145 -???-???-???-???-???-???-?? ?-???-???-???-???-???- JV- no lof, v aginal bleeding, or cramping. Glucola ordered 08/04/22 -???-???-???-???-???-???-?? ?-???-???-???-???-???- 28w 2d 158 lb 2 oz 112/78 Negative -???-???-???-???-???-???-?? ?-???-???-???-???-???- Negative 147 28 -???-???-???-???-???-???-?? ?-???-???-???-???-???- -No VB, LO F. Good FM. 28 wk labs, larc, tdap. 32 and 36 wk growth US ordered. NSTs wkly at 36 wk scheduled. declines flu 08/18/22 -???-???-???-???-???-???-?? ?-???-???-???-???-???- 30w 2d 159 lb 4 oz Negative -???-???-???-???-???-???-?? ?-???-???-???-???-???- Negative -???-???-???-???-???-???-?? ?-???-???-???-???-???- JV- pt here for CVA tenderness and h/o kidney stones. urine was clear. ordering renal ultrasound. oferred to send to L D or ER for fluids and declines. will be back wednesday for exam 08/21/22 -???-???-???-???-???-???-?? ?-???-???-???-???-???- 30w 5d 158 lb 106/60 Negative -???-???-???-???-???-???-?? ?-???-???-???-???-???- Negative 140 30 -???-???-???-???-???-???-?? ?-???-???-???-???-???- SM- still russo ving some urinary frequency and urgency, 08/31/22 -???-???-???-???-???-???-?? ?-???-???-???-???-???- 32w 1d 160 lb 6 oz 120/76 Negative -???-???-???-???-???-???-?? ?-???-???-???-???-???- Negative 146 32 -???-???-???-???-???-???-?? ?-???-???-???-???-???- LC- urinary symptoms have resolved. finished abx on wednesday. will repeat uc in 4 weeks. has growth scan [facility] for tomorrow. -increase prevacid to BID-continued GERD. good fm, denies lof,vb,ctx. 09/15/22 -???-???-???-???-???-???-?? ?-???-???-???-???-???- 34w 2d 160 lb 113/74 Negative -???-???-???-???-???-???-?? ?-???-???-???-???-???- Negative 169 34 -???-???-???-???-???-???-?? ?-???-???-???-???-???- JV- no lof, vaginal bleeding, or dec fm. need urine culture at 36 weeks. growth scan also pending. 10/02/22 -???-???-???-???-???-???-?? ?-???-???-???-???-???- 36w 5d 163 lb 4 oz 103/70 Negative -???-???-???-???-???-???-?? ?-???-???-???-???-???- Negative 140 36 -???-???-???-???-???-???-?? ?-???-???-???-???-???- JV- no compl aints today. gbs collected NST reactive . ACOG First Trimester First Trimester: Discussed Second Trimester Second Trimester: Signs and Symptoms of Labor, Selecting a care provider, Reproductive Life Planning Contreception, Care Planning, Depression/Anxiety and Intimate Partner Violence; Discussed Tobacco Cessation Third Trimester Third Trimester: Pain Management Plans, Labor support person(s), Immediate Larc, Circumcision preference, Movement Monitoring, Signs and Symptoms of Preeclampsia, Infant Feeding No , [place] and Family Medical Leave or Disability Forms Diagnostics Diagnostics Diagnostics: Blood Type A POSITIVE Antibody Screen NEGATIVE Glucose 1 Hr 50 gm 124 mg/dL (70-140) HIV 1 2 Antibody Non-Reactive (Nonreactive) Rubella IgG Antibody Reactive (Nonreactive) Hgb 12.0 g/dL (12.0-15.0) Hct 35.0 % (37-47) L Details: HIV: Urine Culture: Sequential Screen: NIPT Screen: ROS Const Denies fever(s) GI Reports as per HPI and Denies abdominal pain Reports as per HPI, Denies abnormal vaginal bleeding, Denies dysuria and Denies vaginal discharge Exam Const General: healthy appearing, comfortable and no acute distress GI Inspection: normal to inspection Palpation: soft and nontender Office Procedures Non-stress Test Non-Stress Test Indications for Monitoring: Yes other (IVF ) Heart Rate Baseline: 140 Heart Rate Variability: moderate Movement: Present Heart Rate Accelerations: Present Decelerations: Absent Contractions: Absent Impression: Yes Reactive Non-Stress Test Results POC Urinalysis 2 Dip (Clinic) Office Urine Glucose Negative Last Edit by Zayra Cortez on 10/02/22 13:37 Office Urine Protein Negative Last Edit by Zayra Cortez on 10/02/22 13:37 Coding Level of Care Code OB Routine CPT Codes Non-Stress Test (87082) Assessment and Plan Assessment and Plan Orders: Orders OB NST Today O09.819 - Supervision of resulting from assisted reproductive technology, unspecified trimester POC Urinalysis 2 Dip (Clinic) Today Culture, Urine Today N39.0 - Urinary tract infection, site not specified 10/02/22 1417 <Electronically signed by Noemi Rowan DO> Date Noemi Brownignjeniffer Signature: Date (if applicable) CC: Angelica Sharpe DO Work Phone: Start: 09-29-2022 End: 09-29-2022 OB Limited With Biometrics Procedure Note: See Note; NOTES: [facility] Imaging Services [address] [place] [address] OB Limited With Biometrics MR#: [id number] Acct: [id number] Name: CHELI GA Rep #: [id number] : 1990 F 32 From: Fortunato Kamara MD PCP: Dr. Angelica Sharpe, Status: REG CLI Study: OB Limited With Biometrics Date of Exam: 09/29 Exam# [id number] Ordering Dr: Bettina Collier NP ROUTE SALESPERSON -C STUDY: SECOND AND THIRD TRIMESTER OBSTETRICAL ULTRASOUND - LIMITED REASON FOR EXAM: Female, 32 years old growth -- 36 weeks LMP: 01/18/2022 PRIOR ULTRASOUND: 09/01/2022 TECHNIQUE: Transabdominal TECHNICAL QUALITY: Adequate. FINDINGS: There is a single intrauterine fetus. The fetus is in a cephalic presentation. There is demonstrated cardiac activity with a heart rate of 158 bpm. There is a normal amniotic fluid volume. The largest amniotic fluid pocket measures 5.8 cm. The amniotic fluid index (TALA) is 12.8 cm. The placenta is fundal in location. There are Grade 1 placental changes. The cervix measures cm in length. BIOMETRY: BPD: 8.8 cm: 35 weeks, 4 days HC: 32.3 cm: 36 weeks, 4 days AC: 33.6 cm: 37 weeks, 3 days FL: 7.0 cm: 35 weeks, 6 days Age by LMP: 36 weeks, 2 days. MARKIE by LMP: 10/25/2022. age by prior US: weeks, days. MARKIE by prior US: . age by current US: 36 weeks, 6 days. MARKIE by current US: 10/21/2022. Estimated weight: 3051 grams, +/- 458 grams, 68 percentile. Gender: US/OB Limited With Biometrics IMPRESSION: Living intrauterine of 36 weeks 6 days as described above Electronically Signed: Fortunato Kamara MD at 17:43 EST , CC: DARRELL Collier; Dr. Angelica Sharpe DO Laborer Salvage: Signed Angelica Sharpe DO Work Phone: Start: 09-15-2022 End: 09-15-2022 Physical Meteorologist Office Visit Report Procedure Note: See Note; NOTES: [facility] [address] [place] [address] OFFICE VISIT Date of Service: 09/15/22 MR#: [id number] Acct: [id number] Name: CHELI GA Rep #: [id number] : 1990 Provider: Dr. Noemi Glynn DO Age/Sex: 32/F Location: [facility] Status: Signed Intake Vital Signs 08/04/22 11:27 09/15/22 12:55 09/15/22 12:56 Height 5 ft 4 in 5 ft 4 in 5 ft 4 in Weight: 160 lb BMI 27.4 BP 113/74 Intake Visit Reasons: 34WK OB Framing Mechanic Required: No Is patient in pain?: No Allergies No Known Allergies Allergy (Verified 09/15/22 12:55) Medications lactobacillus combination no.8 3 billion cell capsule (Adult Probiotic) 3,000 mmu cells PO DAILY 03/01/19 [History Confirmed 09/15/22] docosahexaenoic acid 200 mg capsule ( DHA) mg PO 12/03/20 [History Confirmed 09/15/22] aspirin 81 mg tablet,delayed release 81 mg PO DAILY 06/12/22 [History Confirmed 09/15/22] famotidine 20 mg tablet (Pepcid AC) 20 mg PO DAILY 08/31/22 [History Confirmed 09/15/22] Last Menstrual Period: 01/18/22 Zika: Zika virus screening: Negative : No PFSH PFSH Medical History Kidney stones, calcium oxalate Lab test positive for detection of COVID-19 virus Surgical History History of tonsillectomy Social History Smoking Status: Never smoker alcohol intake: never substance use type: does not use caffeine: Yes what type of physical activity do you participate in: walking seatbelt use: always do you feel safe at home: Yes additional social history: Shahid Theodore 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 Date Name GA/Weeks Outcome Route Bth Weight Gen Labor Lgth Anesthesia Del Locatn Provider FOB Unknown 2018 Ender live - full term Female Francine asenciotal HPI 34WK OB Details: CHELI GA is a 32 year old who presents for routine OB visit. OB Visit MARKIE Calculator Estimated Delivery Date Method Current WG Current Estimate 10/25/22 LMP (Certain) 34w 2d Expected Delivery Route/Plan Labor Preferences- CB/BF classes: no labor support person: Adrian labor intervention preferences: [] pain management options preferred: epidural cut cord/dad catch: cord : no PP control planned: discussed discussed possible routes of delivery and associated risks: [] special requests: [] Specific Issue/Plans Covid status: no Flu vaccine: no Tdap vaccine: given Rhogam: na LARC form signed: yes Problem list reviewed and updated with the most current plan of care details and appropriate orders placed. Relevant counseling for the gestational age provided. Continue routine care and follow up unless otherwise noted in visit notes/problem list details Initial Weight: Not Recorded Date -???-???-???-???-???-???-?? ?-???-???-???-???-???- EGA Weight BP Urine Prot -???-???-???-???-???-???-?? ?-???-???-???-???-???- Glucose FHR FuHt Pres Dilation -???-???-???-???-???-???-?? ?-???-???-???-???-???- Effaced St Visit Note 04/17/22 -???-???-???-???-???-???-?? ?-???-???-???-???-???- 12w 5d 147 lb -???-???-???-???-???-???-?? ?-???-???-???-???-???- 160 -???-???-???-???-???-???-?? ?-???-???-???-???-???- JV- CRL cons istent with established GA. IVF transfer. 05/15/22 -???-???-???-???-???-???-?? ?-???-???-???-???-???- 16w 5d 147 lb 103/69 -???-???-???-???-???-???-?? ?-???-???-???-???-???- 150 -???-???-???-???-???-???-?? ?-???-???-???-???-???- SM- no vb cr amping still having vomiting 06/12/22 -???-???-???-???-???-???-?? ?-???-???-???-???-???- 20w 5d 149 lb 108/66 Negative -???-???-???-???-???-???-?? ?-???-???-???-???-???- Negative 155 -???-???-???-???-???-???-?? ?-???-???-???-???-???- JV- nolof, v aginal bleeding, or spotting. 07/17/22 -???-???-???-???-???-???-?? ?-???-???-???-???-???- 25w 5d 157 lb 3.2 oz 110/66 Negati ve -???-???-???-???-???-???-?? ?-???-???-???-???-???- Negative 145 -???-???-???-???-???-???-?? ?-???-???-???-???-???- JV- no lof, v aginal bleeding, or cramping. Glucola ordered 08/04/22 -???-???-???-???-???-???-?? ?-???-???-???-???-???- 28w 2d 158 lb 2 oz 112/78 Negative -???-???-???-???-???-???-?? ?-???-???-???-???-???- Negative 147 28 -???-???-???-???-???-???-?? ?-???-???-???-???-???- -No HILLARY DAMON FM. 28 wk labs, larc, tdap. 32 and 36 wk growth US ordered. NSTs wkly at 36 wk scheduled. declines flu 08/18/22 -???-???-???-???-???-???-?? ?-???-???-???-???-???- 30w 2d 159 lb 4 oz Negative -???-???-???-???-???-???-?? ?-???-???-???-???-???- Negative -???-???-???-???-???-???-?? ?-???-???-???-???-???- JV- pt here for CVA tenderness and h/o kidney stones. urine was clear. ordering renal ultrasound. oferred to send to L D or ER for fluids and declines. will be back wednesday for exam 08/21/22 -???-???-???-???-???-???-?? ?-???-???-???-???-???- 30w 5d 158 lb 106/60 Negative -???-???-???-???-???-???-?? ?-???-???-???-???-???- Negative 140 30 -???-???-???-???-???-???-?? ?-???-???-???-???-???- - still russo ving some urinary frequency and urgency, 08/31/22 -???-???-???-???-???-???-?? ?-???-???-???-???-???- 32w 1d 160 lb 6 oz 120/76 Negative -???-???-???-???-???-???-?? ?-???-???-???-???-???- Negative 146 32 -???-???-???-???-???-???-?? ?-???-???-???-???-???- LC- urinary symptoms have resolved. finished abx on wednesday. will repeat uc in 4 weeks. has growth scan maddi for tomorrow. -increase prevacid to BID-continued GERD. good fm, denies lof,vb,ctx. 09/15/22 -???-???-???-???-???-???-?? ?-???-???-???-???-???- 34w 2d 160 lb 113/74 Negative -???-???-???-???-???-???-?? ?-???-???-???-???-???- Negative 169 34 -???-???-???-???-???-???-?? ?-???-???-???-???-???- JV- no lof, vaginal bleeding, or dec fm. need urine culture at 36 weeks. growth scan also pending. ACOG First Trimester First Trimester: Discussed Second Trimester Second Trimester: Signs and Symptoms of Labor, Selecting a care provider, Reproductive Life Planning Contreception, Care Planning, Depression/Anxiety and Intimate Partner Violence; Discussed Tobacco Cessation Third Trimester Third Trimester: Pain Management Plans, Labor support person(s), Immediate Larc, Circumcision preference, Movement Monitoring, Signs and Symptoms of Preeclampsia, Infant Feeding No , [place] Education and Family Medical Leave or Disability Forms Diagnostics Diagnostics Diagnostics: Blood Type A POSITIVE Antibody Screen NEGATIVE Glucose 1 Hr 50 gm 124 mg/dL (70-140) HIV 1 2 Antibody Non-Reactive (Nonreactive) Rubella IgG Antibody Reactive (Nonreactive) Hgb 12.0 g/dL (12.0-15.0) Hct 35.0 % (37-47) L Chlamydia DNA (ZACK) Negative (Negative) N.gonorrhoeae DNA (ZACK) Negative (Negative) Details: HIV: Urine Culture: Sequential Screen: NIPT Screen: ROS Const Denies fever(s) GI Reports as per HPI and Denies abdominal pain Reports as per HPI, Denies abnormal vaginal bleeding, Denies dysuria and Denies vaginal discharge Exam Const General: healthy appearing, comfortable and no acute distress GI Inspection: normal to inspection Palpation: soft and nontender Results POC Urinalysis 2 Dip (Clinic) Office Urine Glucose Negative Last Edit by Colette Ling on 09/15/22 13:08 Office Urine Protein Negative Last Edit by Colette Ling on 09/15/22 13:08 Coding Level of Care Code OB Routine Diagnoses UTI (urinary tract infection) N39.0 History of kidney stones Z87.442 History of tetanus, diphtheria, and acellular pertussis booster vaccination (Tdap) Z92.29 Lab test positive for detection of COVID-19 virus U07.1 conceived through in vitro fertilization O09.819 Z3A.34 Weeks of gestation: 34 weeks Supervision of high risk in first trimester O09.91 Infertility Assessment and Plan Assessment and Plan (1) UTI (urinary tract infection): Status: Acute Comment: treated with cephalexin 08/20. repeat uc in 4 weeks. (2) History of kidney stones: Status: Acute (3) History of tetanus, diphtheria, and acellular pertussis booster vaccination (Tdap): Status: Acute Comment: 08/04/22 (4) Lab test positive for detection of COVID-19 virus: Status: Acute Comment: 81 mg ASA, 32 36 wk growth US (5) conceived through in vitro fertilization: Status: Acute Comment: discussed echo at 22-24 weeks and growth us/weekly nsts at 36 weeks, IOL by 39-40(if possible would prefer after kristin) nl ech 07/03 (6) : Status: Acute Qualifiers: Weeks of gestation: 34 weeks Qualified Code(s): Z3A.34 - 34 weeks gestation of Comment: Genetics done on embryos prior to transfer, carrier testing negative, NIPT nl, Anatomy US nl except for echogenic foci- echo 06/30/22, 09/01/22 nl growth 80% 2236gm =/- 335gms. (7) Supervision of high risk in first trimester: Status: Acute Comment: PRR MARKIE 10/25/22 surprise SB Handley : Adrian (8) Infertility: Status: Chronic Comment: conceived with IUI last , sees RGI Orders: Orders POC Urinalysis 2 Dip (Clinic) Today 09/15/22 1315 <Electronically signed by Noemi Rowan DO> Date Noemi Rowan DO Cosigner Signature: Date (if applicable) CC: Angelica Sharpe DO Work Phone: Start: 09-01-2022 End: 09-01-2022 OB Limited With Biometrics Procedure Note: See Note; NOTES: [facility] Imaging Services [address] [place] [address] OB Limited With Biometrics MR#: [id number] Acct: [id number] Name: DACIA GARenea Morales Rep #: [id number] : 1990 F 32 From: Eduar sorensen MD PCP: Dr. Angelica Sharpe, Status: REG CLI Study: OB Limited With Biometrics Date of Exam: 09/01 Exam# [id number] Ordering Dr: Bettina Collier ROUTE SALESPERSON ROUTE SALESPERSON -C STUDY: SECOND AND THIRD TRIMESTER OBSTETRICAL ULTRASOUND REASON FOR EXAM: Female, 32 years old Growth LMP: 01/18/2022. TECHNIQUE: Transabdominal TECHNICAL QUALITY: Adequate. PRIOR ULTRASOUND: None. FINDINGS: There is a single intrauterine fetus. The fetus is in a cephalic presentation. There is demonstrated cardiac activity with a heart rate of 127 bpm. There is a normal amniotic fluid volume. The largest amniotic fluid pocket measures 5.7 cm. The amniotic fluid index (TALA) is 16.1 cm. The placenta is fundal and posterior in location. There are Grade 0 placental changes. The cervix measures 3.1 cm in length. The adnexal regions are not visualized. BIOMETRY: BPD: 8.4 cm: 33 weeks, 5 days HC: 30.7 cm: 34 weeks, 1 days AC: 30.3 cm: 34 weeks, 2 days FL: 6.1 cm: 31 weeks, 6 days CI: 81% FL/BPD: 73% FL/HC: FL/AC: 20% HC/AC: 1.01 age by current US: 33 weeks, 2 days. MARKIE by current US: 10/18/2022. Estimated weight: 2236 grams, +/- 335 grams, 80 %. Age by LMP: 32 weeks, 2 days. MARKIE by LMP: 10/25/2022. US/OB Limited With Biometrics IMPRESSION: Single live intrauterine gestation with a mean gestational age of 33 weeks and 2 days. Electronically Signed: Eduar Arias MD at 15:13 EST Reading Location ID and State: [address] [place] [address] , Service support , CC: DARRELL Collier; Dr. Angelica Sharpe DO Laborer Salvage: Signed Angelica Sharpe DO Work Phone: Start: 08-31-2022 End: 08-31-2022 Physical Meteorologist Office Visit Report Procedure Note: See Note; NOTES: [facility] [address] [place] [address] [address] [place] [address] OFFICE VISIT Date of Service: 08/31/22 MR#: [id number] Acct: [id number] Name: CHELSEACHELI M Rep #: [id number] : 1990 Provider: VIRGEN christian Age/Sex: 32/F Location: [facility] Status: Signed Intake Vital Signs 08/04/22 11:27 08/31/22 09:29 08/31/22 09:30 Height 5 ft 4 in 5 ft 4 in 5 ft 4 in Weight: 160 lb 6 oz BMI 27.5 BP 120/76 Intake Visit Reasons: 32WK OB Framing Mechanic Required: No Is patient in pain?: No Allergies No Known Allergies Allergy (Verified 08/31/22 09:28) Medications lactobacillus combination no.8 3 billion cell capsule (Adult Probiotic) 3,000 mmu cells PO DAILY 03/01/19 [History Confirmed 08/31/22] docosahexaenoic acid 200 mg capsule ( DHA) mg PO 12/03/20 [History Confirmed 08/31/22] aspirin 81 mg tablet,delayed release 81 mg PO DAILY 06/12/22 [History Confirmed 08/31/22] famotidine 20 mg tablet (Pepcid AC) 20 mg PO DAILY 08/31/22 [History Confirmed 08/31/22] Last Menstrual Period: 01/18/22 Zika: Zika virus screening: Negative : No PFSH PFSH Medical History Kidney stones, calcium oxalate Lab test positive for detection of COVID-19 virus Surgical History History of tonsillectomy Social History Smoking Status: Never smoker alcohol intake: never substance use type: does not use caffeine: Yes what type of physical activity do you participate in: walking seatbelt use: always do you feel safe at home: Yes additional social history: Shahid Theodore 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 Date Name GA/Weeks Outcome Route Bth Weight Infant Gen Labor Lgth Anesthesia Del Locatn Provider FOB Unknown 2018 Renley live - full term Female Francine asenciotal HPI 32WK OB Details: CHELI GA is a 32 year old who presents for routine OB visit. OB Visit MARKIE Calculator Estimated Delivery Date Method Current WG Current Estimate 10/25/22 LMP (Certain) 32w 1d Expected Delivery Route/Plan Labor Preferences- CB/BF classes: no labor support person: Adrian labor intervention preferences: [] pain management options preferred: epidural cut cord/dad catch: cord : no PP control planned: discussed discussed possible routes of delivery and associated risks: [] special requests: [] Specific Issue/Plans Covid status: no Flu vaccine: no Tdap vaccine: given Rhogam: na LARC form signed: yes Problem list reviewed and updated with the most current plan of care details and appropriate orders placed. Relevant counseling for the gestational age provided. Continue routine care and follow up unless otherwise noted in visit notes/problem list details Initial Weight: Not Recorded Date -???-???-???-???-???-???-?? ?-???-???-???-???-???- EGA Weight BP Urine Prot -???-???-???-???-???-???-?? ?-???-???-???-???-???- Glucose FHR FuHt Pres Dilation -???-???-???-???-???-???-?? ?-???-???-???-???-???- Effaced St Visit Note 04/17/22 -???-???-???-???-???-???-?? ?-???-???-???-???-???- 12w 5d 147 lb -???-???-???-???-???-???-?? ?-???-???-???-???-???- 160 -???-???-???-???-???-???-?? ?-???-???-???-???-???- JV- CRL cons istent with established GA. IVF transfer. 05/15/22 -???-???-???-???-???-???-?? ?-???-???-???-???-???- 16w 5d 147 lb 103/69 -???-???-???-???-???-???-?? ?-???-???-???-???-???- 150 -???-???-???-???-???-???-?? ?-???-???-???-???-???- SM- no vb cr amping still having vomiting 06/12/22 -???-???-???-???-???-???-?? ?-???-???-???-???-???- 20w 5d 149 lb 108/66 Negative -???-???-???-???-???-???-?? ?-???-???-???-???-???- Negative 155 -???-???-???-???-???-???-?? ?-???-???-???-???-???- JV- nolof, v aginal bleeding, or spotting. 07/17/22 -???-???-???-???-???-???-?? ?-???-???-???-???-???- 25w 5d 157 lb 3.2 oz 110/66 Negati ve -???-???-???-???-???-???-?? ?-???-???-???-???-???- Negative 145 -???-???-???-???-???-???-?? ?-???-???-???-???-???- JV- no lof, v aginal bleeding, or cramping. Glucola ordered 08/04/22 -???-???-???-???-???-???-?? ?-???-???-???-???-???- 28w 2d 158 lb 2 oz 112/78 Negative -???-???-???-???-???-???-?? ?-???-???-???-???-???- Negative 147 28 -???-???-???-???-???-???-?? ?-???-???-???-???-???- -No VB, [facility]. Good FM. 28 wk labs, larc, tdap. 32 and 36 wk growth US ordered. NSTs wkly at 36 wk scheduled. declines flu 08/18/22 -???-???-???-???-???-???-?? ?-???-???-???-???-???- 30w 2d 159 lb 4 oz Negative -???-???-???-???-???-???-?? ?-???-???-???-???-???- Negative -???-???-???-???-???-???-?? ?-???-???-???-???-???- JV- pt here for CVA tenderness and h/o kidney stones. urine was clear. ordering renal ultrasound. oferred to send to L D or ER for fluids and declines. will be back wednesday for exam 08/21/22 -???-???-???-???-???-???-?? ?-???-???-???-???-???- 30w 5d 158 lb 106/60 Negative -???-???-???-???-???-???-?? ?-???-???-???-???-???- Negative 140 30 -???-???-???-???-???-???-?? ?-???-???-???-???-???- SM- still russo ving some urinary frequency and urgency, 08/31/22 -???-???-???-???-???-???-?? ?-???-???-???-???-???- 32w 1d 160 lb 6 oz 120/76 Negative -???-???-???-???-???-???-?? ?-???-???-???-???-???- Negative 146 32 -???-???-???-???-???-???-?? ?-???-???-???-???-???- LC- urinary symptoms have resolved. finished abx on wednesday. will repeat uc in 4 weeks. has growth scan maddi for tomorrow. -increase prevacid to BID-continued GERD. good fm, denies lof,vb,ctx. ACOG First Trimester First Trimester: Discussed Second Trimester Second Trimester: Signs and Symptoms of Labor, Selecting a care provider, Reproductive Life Planning Contreception, Care Planning, Depression/Anxiety and Intimate Partner Violence; Discussed Tobacco Cessation Third Trimester Third Trimester: Pain Management Plans, Labor support person(s), Immediate Larc, Circumcision preference, Movement Monitoring, Signs and Symptoms of Preeclampsia, Infant Feeding No , [place] [employer] and Family Medical Leave or Disability Forms Diagnostics Diagnostics Diagnostics: Blood Type A POSITIVE Antibody Screen NEGATIVE Glucose 1 Hr 50 gm 124 mg/dL (70-140) HIV 1 2 Antibody Non-Reactive (Nonreactive) Rubella IgG Antibody Reactive (Nonreactive) Hgb 12.0 g/dL (12.0-15.0) Hct 35.0 % (37-47) L Chlamydia DNA (ZACK) Negative (Negative) N.gonorrhoeae DNA (ZACK) Negative (Negative) Details: HIV: Urine Culture: Sequential Screen: NIPT Screen: ROS Const Denies body aches, Denies chills, Denies fever(s), Denies headache(s), Denies increased appetite and Denies poor appetite ENT Denies headache(s) Card Denies chest pain GI Denies abdominal pain, Denies nausea and Denies vomiting Denies urinary hesitancy and Denies urinary urgency Neuro No headache(s) Exam Const Orientation: alert, awake and oriented x3 HENMT Head: normocephalic Eyes Pupils: PERRL Neck Neck: full ROM Resp Effort Inspection: normal respiratory effort, able to speak in complete sentences and symmetric chest movement Cardio Other: varicose veins to LE GI Palpation: soft OB/External Speculum: other (fundus appriopriate for GA) Results POC Urinalysis 2 Dip (Clinic) Office Urine Glucose Negative Last Edit by Colette Ling on 08/31/22 09:36 Office Urine Protein Negative Last Edit by Colette Ling on 08/31/22 09:36 Coding Level of Care Code OB Routine Diagnoses History of kidney stones Z87.442 History of tetanus, diphtheria, and acellular pertussis booster vaccination (Tdap) Z92.29 Lab test positive for detection of COVID-19 virus U07.1 conceived through in vitro fertilization O09.819 Z3A.32 Weeks of gestation: 32 weeks Supervision of high risk in first trimester O09.91 Infertility UTI (urinary tract infection) N39.0 Assessment and Plan Assessment and Plan (1) History of kidney stones: Status: Acute (2) History of tetanus, diphtheria, and acellular pertussis booster vaccination (Tdap): Status: Acute Comment: 08/04/22 (3) Lab test positive for detection of COVID-19 virus: Status: Acute Comment: 81 mg ASA, 32 36 wk growth US (4) conceived through in vitro fertilization: Status: Acute Comment: discussed echo at 22-24 weeks and growth us/weekly nsts at 36 weeks, IOL by 39-40(if possible would prefer after kristin) nl ech 07/03 (5) : Status: Acute Qualifiers: Weeks of gestation: 32 weeks Qualified Code(s): Z3A.32 - 32 weeks gestation of Comment: Genetics done on embryos prior to transfer, carrier testing negative, NIPT nl, Anatomy US nl except for echogenic foci- echo 06/30/22 (6) Supervision of high risk in first trimester: Status: Acute Comment: PRR MARKIE 10/25/22 surprise SB Handley : Adrian (7) Infertility: Status: Chronic Comment: conceived with IUI last , sees RGI (8) UTI (urinary tract infection): Status: Acute Comment: treated with cephalexin 08/20. repeat uc in 4 weeks. Orders: Orders POC Urinalysis 2 Dip (Clinic) Today Plan ACOG trimester education reviewed and updated. see problem list details for updated plan management information and see below for orders placed at this visit. GA appropriate handout given. 08/31/22 1001 <Electronically signed by Becki Reddy CNM> Date Becki Reddy CNM Cosigner Signature: Date (if applicable) CC: Angelica Sharpe DO Work Phone: Start: 08-21-2022 End: 08-21-2022 Physical Meteorologist Office Visit Report Procedure Note: See Note; NOTES: [facility] [address] [place] [address] [address] [place] [address] OFFICE VISIT Date of Service: 08/21/22 MR#: [id number] Acct: [id number] Name: CHELI GA Rep #: [id number] : 1990 Provider: Dr. Shanita drake MD Age/Sex: 32/F Location: [facility] Status: Signed Intake Vital Signs 08/04/22 11:27 08/18/22 13:14 08/21/22 13:34 08/21/22 13:35 Height 5 ft 4 in 5 ft 4 in 5 ft 4 in 5 ft 4 in Weight: 158 lb BMI 27.1 BP 106/60 Intake Visit Reasons: 30WK OB Chief Complaint: est ob Framing Mechanic Required: No Is patient in pain?: No Allergies No Known Allergies Allergy (Verified 08/18/22 13:14) Medications lactobacillus combination no.8 3 billion cell capsule (Adult Probiotic) 3,000 mmu cells PO DAILY 03/01/19 [History Confirmed 08/21/22] docosahexaenoic acid 200 mg capsule ( DHA) mg PO 12/03/20 [History Confirmed 08/21/22] aspirin 81 mg tablet,delayed release 81 mg PO DAILY 06/12/22 [History Confirmed 08/21/22] cephalexin 500 mg capsule 500 mg PO TID 7 days #21 caps 08/21/22 [Rx Confirmed 08/21/22] Last Menstrual Period: 01/18/22 Zika: Zika virus screening: Negative : No PFSH PFSH Medical History Kidney stones, calcium oxalate Lab test positive for detection of COVID-19 virus Surgical History History of tonsillectomy Social History Smoking Status: Never smoker alcohol intake: never substance use type: does not use caffeine: Yes what type of physical activity do you participate in: walking seatbelt use: always do you feel safe at home: Yes additional social history: Shahid Theodore 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 Date Name GA/Weeks Outcome Route Bth Weight Gen Labor Lgth Anesthesia Del Locatn Provider FOB Unknown 2018 Ender live - full term Female Francine asenciotal HPI 30WK OB Details: CHELI GA is a 32 year old who presents for routine OB visit. OB Visit MARKIE Calculator Estimated Delivery Date Method Current WG Current Estimate 10/25/22 LMP (Certain) 30w 5d Expected Delivery Route/Plan Labor Preferences- CB/BF classes: no labor support person: Adrian labor intervention preferences: [] pain management options preferred: epidural cut cord/dad catch: cord : no PP control planned: discussed discussed possible routes of delivery and associated risks: [] special requests: [] Specific Issue/Plans Covid status: no Flu vaccine: no Tdap vaccine: given Rhogam: na LARC form signed: yes Problem list reviewed and updated with the most current plan of care details and appropriate orders placed. Relevant counseling for the gestational age provided. Continue routine care and follow up unless otherwise noted in visit notes/problem list details Initial Weight: Not Recorded Date -???-???-???-???-???-???-?? ?-???-???-???-???-???- EGA Weight BP Urine Prot -???-???-???-???-???-???-?? ?-???-???-???-???-???- Glucose FHR FuHt Pres Dilation -???-???-???-???-???-???-?? ?-???-???-???-???-???- Effaced St Visit Note 04/17/22 -???-???-???-???-???-???-?? ?-???-???-???-???-???- 12w 5d 147 lb -???-???-???-???-???-???-?? ?-???-???-???-???-???- 160 -???-???-???-???-???-???-?? ?-???-???-???-???-???- JV- CRL cons istent with established GA. IVF transfer. 05/15/22 -???-???-???-???-???-???-?? ?-???-???-???-???-???- 16w 5d 147 lb 103/69 -???-???-???-???-???-???-?? ?-???-???-???-???-???- 150 -???-???-???-???-???-???-?? ?-???-???-???-???-???- SM- no vb cr amping still having vomiting 06/12/22 -???-???-???-???-???-???-?? ?-???-???-???-???-???- 20w 5d 149 lb 108/66 Negative -???-???-???-???-???-???-?? ?-???-???-???-???-???- Negative 155 -???-???-???-???-???-???-?? ?-???-???-???-???-???- JV- nolof, v aginal bleeding, or spotting. 07/17/22 -???-???-???-???-???-???-?? ?-???-???-???-???-???- 25w 5d 157 lb 3.2 oz 110/66 Negati ve -???-???-???-???-???-???-?? ?-???-???-???-???-???- Negative 145 -???-???-???-???-???-???-?? ?-???-???-???-???-???- JV- no lof, v aginal bleeding, or cramping. Glucola ordered 08/04/22 -???-???-???-???-???-???-?? ?-???-???-???-???-???- 28w 2d 158 lb 2 oz 112/78 Negative -???-???-???-???-???-???-?? ?-???-???-???-???-???- Negative 147 28 -???-???-???-???-???-???-?? ?-???-???-???-???-???- -No VB, [address] FM. 28 wk labs, larc, tdap. 32 and 36 wk growth US ordered. NSTs wkly at 36 wk scheduled. declines flu 08/18/22 -???-???-???-???-???-???-?? ?-???-???-???-???-???- 30w 2d 159 lb 4 oz Negative -???-???-???-???-???-???-?? ?-???-???-???-???-???- Negative -???-???-???-???-???-???-?? ?-???-???-???-???-???- JV- pt here for CVA tenderness and h/o kidney stones. urine was clear. ordering renal ultrasound. oferred to send to L D or ER for fluids and declines. will be back wednesday for exam 08/21/22 -???-???-???-???-???-???-?? ?-???-???-???-???-???- 30w 5d 158 lb 106/60 Negative -???-???-???-???-???-???-?? ?-???-???-???-???-???- Negative 140 30 -???-???-???-???-???-???-?? ?-???-???-???-???-???- SM- still russo ving some urinary frequency and urgency, ACOG First Trimester First Trimester: Discussed Second Trimester Second Trimester: Signs and Symptoms of Labor, Selecting a care provider, Reproductive Life Planning Contreception, Care Planning, Depression/Anxiety and Intima te Partner Violence; Discussed Tobacco Cessation Third Trimester Third Trimester: Pain Management Plans, Labor support person(s), Immediate Larc, Circumcision preference, Movement Monitoring, Signs and Symptoms of Preeclampsia, Feeding No , Education and Family Medical Leave or Disability Forms Diagnostics Diagnostics Diagnostics: Blood Type A POSITIVE Antibody Screen NEGATIVE Glucose 1 Hr 50 gm 124 mg/dL (70-140) HIV 1 2 Antibody Non-Reactive (Nonreactive) Rubella IgG Antibody Reactive (Nonreactive) Hgb 12.0 g/dL (12.0-15.0) Hct 35.0 % (37-47) L Chlamydia DNA (ZACK) Negative (Negative) N.gonorrhoeae DNA (ZACK) Negative (Negative) Details: HIV: Urine Culture: Sequential Screen: NIPT Screen: Results POC Urinalysis 2 Dip (Clinic) Office Urine Glucose Negative Last Edit by Willow Guillermo on 08/21/22 13:37 Office Urine Protein Negative Last Edit by Willow Guillermo on 08/21/22 13:37 Coding Level of Care Code OB Routine Diagnoses History of kidney stones Z87.442 History of tetanus, diphtheria, and acellular pertussis booster vaccination (Tdap) Z92.29 Lab test positive for detection of COVID-19 virus U07.1 conceived through in vitro fertilization O09.819 Z3A.30 Weeks of gestation: 30 weeks Supervision of high risk in first trimester O09.91 Infertility Assessment and Plan Assessment and Plan (1) History of kidney stones: Status: Acute (2) History of tetanus, diphtheria, and acellular pertussis booster vaccination (Tdap): Status: Acute Comment: 08/04/22 (3) Lab test positive for detection of COVID-19 virus: Status: Acute Comment: 81 mg ASA, 32 36 wk growth US (4) conceived through in vitro fertilization: Status: Acute Comment: discussed echo at 22-24 weeks and growth us/weekly nsts at 36 weeks, IOL by 39-40, nl ech 07/03 (5) : Status: Acute Qualifiers: Weeks of gestation: 30 weeks Qualified Code(s): Z3A.30 - 30 weeks gestation of Comment: Genetics done on embryos prior to transfer, carrier testing negative, NIPT nl, Anatomy US nl except for echogenic foci- echo 06/30/22 (6) Supervision of high risk in first trimester: Status: Acute Comment: PRR MARKIE 10/25/22 surprise PC Ender : Adrian (7) Infertility: Status: Chronic Comment: conceived with IUI last , sees RGI Orders: Orders POC Urinalysis 2 Dip (Clinic) Today Medications: New cephalexin space evenly during waking hours 500 mg PO TID 7 days 21 caps 0RF 08/21/22 1358 <Electronically signed by Shanita Hendrix MD> Date Shanita Hendrix MD Cosign Signature: Date (if applicable) CC: Angelica Sharpe DO Work Phone: Start: 08-18-2022 End: 08-18-2022 Physical Meteorologist Office Visit Report Procedure Note: See Note; NOTES: [facility] [address] [place] [address]. [address] [place] [address] OFFICE VISIT Date of Service: 08/18/22 MR#: [id number] Acct: [id number] Name: CHELI GA Rep #: [id number] : 1990 Provider: Dr. Noemi Glynn DO Age/Sex: 32/F Location: [facility] Status: Signed Intake Vital Signs 08/18/22 13:14 08/18/22 13:14 Height 5 ft 4 in 5 ft 4 in Weight: 159 lb 4 oz BMI 27.3 Intake Visit Reasons: UTI sx Framing Mechanic Required: No Is patient in pain?: No Allergies No Known Allergies Allergy (Verified 08/18/22 13:14) Medications lactobacillus combination no.8 3 billion cell capsule (Adult Probiotic) 3,000 mmu cells PO DAILY 03/01/19 [History Confirmed 08/18/22] docosahexaenoic acid 200 mg capsule ( DHA) mg PO 12/03/20 [History Confirmed 08/18/22] ondansetron HCl 4 mg tablet 4 mg PO Q8H PRN nausea and vomiting 30 days #40 tabs 04/17/22 [Rx Confirmed 08/18/22] aspirin 81 mg tablet,delayed release 81 mg PO DAILY 06/12/22 [History Confirmed 08/18/22] Last Menstrual Period: 01/18/22 Zika: Zika virus screening: Negative : No PFSH PFSH Medical History Kidney stones, calcium oxalate Lab test positive for detection of COVID-19 virus Surgical History History of tonsillectomy Social History Smoking Status: Never smoker alcohol intake: never substance use type: does not use caffeine: Yes what type of physical activity do you participate in: walking seatbelt use: always do you feel safe at home: Yes additional social history: Shahid Theodore 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 Date Name GA/Weeks Outcome Route Bth Weight Infant Gen Labor Lgth Anesthesia Del Locatn Provider FOB Unknown 2018 Renley live - full term Female Francine Ho spital HPI UTI sx Details: CHELI GA is a 32 year old who presents for routine OB visit. OB Visit MARKIE Calculator Estimated Delivery Date Method Current WG Current Estimate 10/25/22 LMP (Certain) 30w 2d Expected Delivery Route/Plan Labor Preferences- CB/BF classes: no labor support person: Adrian labor intervention preferences: [] pain management options preferred: epidural cut cord/dad catch: cord : no PP control planned: discussed discussed possible routes of delivery and associated risks: [] special requests: [] Specific Issue/Plans Covid status: no Flu vaccine: no Tdap vaccine: given Rhogam: na LARC form signed: yes Problem list reviewed and updated with the most current plan of care details and appropriate orders placed. Relevant counseling for the gestational age provided. Continue routine care and follow up unless otherwise noted in visit notes/problem list details Initial Weight: Not Recorded Date -???-???-???-???-???-???-?? ?-???-???-???-???-???- EGA Weight BP Urine Prot -???-???-???-???-???-???-?? ?-???-???-???-???-???- Glucose FHR FuHt Pres Dilation -???-???-???-???-???-???-?? ?-???-???-???-???-???- Effaced St Visit Note 04/17/22 -???-???-???-???-???-???-?? ?-???-???-???-???-???- 12w 5d 147 lb -???-???-???-???-???-???-?? ?-???-???-???-???-???- 160 -???-???-???-???-???-???-?? ?-???-???-???-???-???- JV- CRL cons istent with established GA. IVF transfer. 05/15/22 -???-???-???-???-???-???-?? ?-???-???-???-???-???- 16w 5d 147 lb 103/69 -???-???-???-???-???-???-?? ?-???-???-???-???-???- 150 -???-???-???-???-???-???-?? ?-???-???-???-???-???- SM- no vb cr amping still having vomiting 06/12/22 -???-???-???-???-???-???-?? ?-???-???-???-???-???- 20w 5d 149 lb 108/66 Negative -???-???-???-???-???-???-?? ?-???-???-???-???-???- Negative 155 -???-???-???-???-???-???-?? ?-???-???-???-???-???- JV- nolof, v aginal bleeding, or spotting. 07/17/22 -???-???-???-???-???-???-?? ?-???-???-???-???-???- 25w 5d 157 lb 3.2 oz 110/66 Negati ve -???-???-???-???-???-???-?? ?-???-???-???-???-???- Negative 145 -???-???-???-???-???-???-?? ?-???-???-???-???-???- JV- no lof, v aginal bleeding, or cramping. Glucola ordered 08/04/22 -???-???-???-???-???-???-?? ?-???-???-???-???-???- 28w 2d 158 lb 2 oz 112/78 Negative -???-???-???-???-???-???-?? ?-???-???-???-???-???- Negative 147 28 -???-???-???-???-???-???-?? ?-???-???-???-???-???- -No VB, HILLARY F. Jad FM. 28 wk labs, larc, tdap. 32 and 36 wk growth US ordered. NSTs wkly at 36 wk scheduled. declines flu 08/18/22 -???-???-???-???-???-???-?? ?-???-???-???-???-???- 30w 2d 159 lb 4 oz Negative -???-???-???-???-???-???-?? ?-???-???-???-???-???- Negative -???-???-???-???-???-???-?? ?-???-???-???-???-???- JV- pt here for CVA tenderness and h/o kidney stones. urine was clear. ordering renal ultrasound. oferred to send to L [facility] or ER for fluids and declines. will be back wednesday for exam ACOG First Trimester First Trimester: Discussed Second Trimester Second Trimester: Signs and Symptoms of Labor, Selecting a care provider, Reproductive Life Planning Contreception, Care Planning, Depression/Anxiety and Intimate Partner Violence; Discussed Tobacco Cessation Third Trimester Third Trimester: Pain Management Plans, Labor support person(s), Immediate Larc, Circumcision preference, Movement Monitoring, Signs and Symptoms of Preeclampsia, Infant F eeding No , Education and Family Medical Leave or Disability Forms Diagnostics Diagnostics Diagnostics: Blood Type A POSITIVE Antibody Screen NEGATIVE Glucose 1 Hr 50 gm 124 mg/dL (70-140) HIV 1 2 Antibody Non-Reactive (Nonreactive) Rubella IgG Antibody Reactive (Nonreactive) Hgb 12.0 g/dL (12.0-15.0) Hct 35.0 % (37-47) L Chlamydia DNA (ZACK) Negative (Negative) N.gonorrhoeae DNA (ZACK) Negative (Negative) Details: HIV: Urine Culture: Sequential Screen: NIPT Screen: ROS Const Denies fever(s) GI Reports as per HPI and Denies abdominal pain Reports as per HPI, Denies abnormal vaginal bleeding, Denies dysuria and Denies vaginal discharge Exam Const General: healthy appearing, comfortable and no acute distress GI Inspection: normal to inspection Palpation: soft and nontender Results POC Urinalysis Dip (Clinic) Office Urine Color Yellow Last Edit by Colette Ling on 08/18/22 13:20 Office Urine Clarity Clear Last Edit by Colette Ling on 08/18/22 13:20 Office Urine Glucose Negative Last Edit by Colette Ling on 08/18/22 13:20 Office Urine Ketones Negative Last Edit by Colette Ling on 08/18/22 13:20 Off Ur Spec [place] 1.015 Last Edit by Colette Ling on 08/18/22 13:20 Office Urine pH 7.5 Last Edit by Colette Ling on 08/18/22 13:20 Office Urine Bilirubin Negative Last Edit by Colette Ling on 08/18/22 13:20 Office Urine Urobilinogen 0.2 mg/dL Last Edit by Colette Ling on 08/18/22 13:20 Office Urine Blood Trace Last Edit by Colette Ling on 08/18/22 13:20 Office Urine Blood Hemolyzed Last Edit by Colette Ling on 08/18/22 13:20 Office Urine Protein Negative Last Edit by Colette Ling on 08/18/22 13:20 Office Urine Nitrate Negative Last Edit by Colette Ling on 08/18/22 13:20 Off Ur Leukocytes Negatve Last Edit by Colette Ling on 08/18/22 13:20 Coding Level of Care Code Off vis,est,level 3 Diagnoses History of kidney stones Z87.442 History of tetanus, diphtheria, and acellular pertussis booster vaccination (Tdap) Z92.29 Lab test positive for detection of COVID-19 virus U07.1 conceived through in vitro fertilization O09.819 Z3A.30 Weeks of gestation: 30 weeks Supervision of high risk in first trimester O09.91 Infertility Assessment and Plan Assessment and Plan (1) History of kidney stones: Status: Acute Plan: encourage PO hydration, Ultrasound ordered (2) History of tetanus, diphtheria, and acellular pertussis booster vaccination (Tdap): Status: Acute Comment: 08/04/22 (3) Lab test positive for detection of COVID-19 virus: Status: Acute Comment: 81 mg ASA, 32 36 wk growth US (4) conceived through in vitro fertilization: Status: Acute Comment: discussed echo at 22-24 weeks and growth us/weekly nsts at 36 weeks, IOL by 39-40, nl ech 07/03 (5) : Status: Acute Qualifiers: Weeks of gestation: 30 weeks Qualified Code(s): Z3A.30 - 30 weeks gestation of Comment: Genetics done on embryos prior to transfer, carrier testing negative, NIPT nl, Anatomy US nl except for echogenic foci- echo 06/30/22 (6) Supervision of high risk in first trimester: Status: Acute Comment: MARKIE 10/25/22 SB Handley : Adrian (7) Infertility: Status: Chronic Comment: conceived with IUI last , sees RGI Orders: Orders POC Urinalysis Dip (Clinic) Today R35.0 - Frequency of micturition Bettina Collier ROUTE SALESPERSON, ROUTE SALESPERSON-C Kidney and Bladder Today Z3A.30 - 30 weeks gestation of , Z87.442 - Personal history of urinary calculi Dr. Noemi Rowan, DO Culture, Urine Today R35.0 - Frequency of micturition Bettina Collier ROUTE SALESPERSON, ROUTE SALESPERSON-C 08/18/22 1331 <Electronically signed by Noemi Rowan DO> Date [facility] DO [facility] Signature: Date (if applicable) CC: Angelica Sharpe DO Work Phone: Start: 08-04-2022 End: 08-04-2022 Physical Meteorologist Office Visit Report Procedure Note: See Note; NOTES: [facility] [address] [place] [address] OFFICE VISIT Date of Service: 08/04/22 MR#: [id number] Acct: [id number] Name: CHELI GA Rep #: [id number] : 1990 Provider: DARRELL mcclendon Age/Sex: 32/F Location: [facility] Status: Signed Intake Vital Signs 05/15/22 10:35 08/04/22 11:15 08/04/22 11:27 Height 5 ft 4 in 5 ft 4 in 5 ft 4 in Weight: 158 lb 2 oz BMI 27.1 BP 112/78 Intake Visit Reasons: 28 WK OB/GLUCOSE Chief Complaint: 28 week ob Framing Mechanic Required: No Is patient in pain?: No Allergies No Known Allergies Allergy (Verified 08/04/22 11:28) Medications lactobacillus combination no.8 3 billion cell capsule (Adult Probiotic) 3,000 mmu cells PO DAILY 03/01/19 [History Confirmed 08/04/22] docosahexaenoic acid 200 mg capsule ( DHA) mg PO 12/03/20 [History Confirmed 08/04/22] ondansetron HCl 4 mg tablet 4 mg PO Q8H PRN nausea and vomiting 30 days #40 tabs 04/17/22 [Rx Confirmed 08/04/22] aspirin 81 mg tablet,delayed release 81 mg PO DAILY 06/12/22 [History Confirmed 08/04/22] Last Menstrual Period: 01/18/22 Zika: Zika virus screening: Negative Nurse's Note: Patient declines flu shot at this time. 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 Date Name GA/Weeks Outcome Route Bth Weight Gen Labor Lgth Anesthesia Del Locatn Provider FOB Unknown 2018 [place] live - full term Female Francine Ho spital HPI 28 WK OB/GLUCOSE Details: CHELI GA is a 32 year old who presents for routine OB visit. OB Visit MARKIE Calculator Estimated Delivery Date Method Current WG Current Estimate 10/25/22 LMP (Certain) 28w 2d Expected Delivery Route/Plan Labor Preferences- CB/BF classes: no labor support person: Adrian labor intervention preferences: [] pain management options preferred: epidural cut cord/dad catch: cord : no PP control planned: discussed discussed possible routes of delivery and associated risks: [] special requests: [] Specific Issue/Plans Covid status: no Flu vaccine: no Tdap vaccine: given Rhogam: na LARC form signed: yes Problem list reviewed and updated with the most current plan of care details and appropriate orders placed. Relevant counseling for the gestational age provided. Continue routine care and follow up unless otherwise noted in visit notes/problem list details Initial Weight: Not Recorded Date -???-???-???-???-???-???-?? ?-???-???-???-???-???- EGA Weight BP Urine Prot -???-???-???-???-???-???-?? ?-???-???-???-???-???- Glucose FHR FuHt Pres Dilation -???-???-???-???-???-???-?? ?-???-???-???-???-???- Effaced St Visit Note 04/17/22 -???-???-???-???-???-???-?? ?-???-???-???-???-???- 12w 5d 147 lb -???-???-???-???-???-???-?? ?-???-???-???-???-???- 160 -???-???-???-???-???-???-?? ?-???-???-???-???-???- JV- CRL cons istent with established GA. IVF transfer. 05/15/22 -???-???-???-???-???-???-?? ?-???-???-???-???-???- 16w 5d 147 lb 103/69 -???-???-???-???-???-???-?? ?-???-???-???-???-???- 150 -???-???-???-???-???-???-?? ?-???-???-???-???-???- SM- no vb cr amping still having vomiting 06/12/22 -???-???-???-???-???-???-?? ?-???-???-???-???-???- 20w 5d 149 lb 108/66 Negative -???-???-???-???-???-???-?? ?-???-???-???-???-???- Negative 155 -???-???-???-???-???-???-?? ?-???-???-???-???-???- JV- nolof, v aginal bleeding, or spotting. 07/17/22 -???-???-???-???-???-???-?? ?-???-???-???-???-???- 25w 5d 157 lb 3.2 oz 110/66 Negati ve -???-???-???-???-???-???-?? ?-???-???-???-???-???- Negative 145 -???-???-???-???-???-???-?? ?-???-???-???-???-???- JV- no lof, v aginal bleeding, or cramping. Glucola ordered 08/04/22 -???-???-???-???-???-???-?? ?-???-???-???-???-???- 28w 2d 158 lb 2 oz 112/78 Negative -???-???-???-???-???-???-?? ?-???-???-???-???-???- Negative 147 28 -???-???-???-???-???-???-?? ?-???-???-???-???-???- -No VBHILLARY FM. 28 wk labs, larc, tdap. 32 and 36 wk growth US ordered. NSTs wkly at 36 wk scheduled. declines flu ACOG First Trimester First Trimester: Discussed Second Trimester Second Trimester: Signs and Symptoms of Labor, Selecting a care provider, Reproductive Life Planning Contreception, Care Planning, Depression/Anxiety and Intimate Partner Violence; Discussed Tobacco Cessation Third Trimester Third Trimester: Pain Management Plans, Labor support person(s), Immediate Larc, Circumcision preference Yes Yes, Movement Monitoring, Signs and Symptoms of Preeclampsia, Infant Feeding No and Yes Formula, Education and Family Medical Leave or Disability Forms Diagnostics Diagnostics Diagnostics: Blood Type A POSITIVE Antibody Screen NEGATIVE Glucose 1 Hr 50 gm Pending HIV 1 2 Antibody Non-Reactive (Nonreactive) Rubella IgG Antibody Reactive (Nonreactive) Hgb 12.0 g/dL (12.0-15.0) Hct 35.0 % (37-47) L Chlamydia DNA (ZACK) Negative (Negative) N.gonorrhoeae DNA (ZACK) Negative (Negative) Details: HIV: Urine Culture: Sequential Screen: NIPT Screen: Results POC Urinalysis 2 Dip (Clinic) Office Urine Glucose Negative Last Edit by Zayra Cortez on 08/04/22 11:32 Office Urine Protein Negative Last Edit by Zayra Cortez on 08/04/22 11:32 Coding Level of Care Code OB Routine Diagnoses conceived through in vitro fertilization O09.819 Supervision of high risk in first trimester O09.91 Z3A.25 Weeks of gestation: 25 weeks Lab test positive for detection of COVID-19 virus U07.1 History of tetanus, diphtheria, and acellular pertussis booster vaccination (Tdap) Z92.29 Assessment and Plan Assessment and Plan (1) conceived through in vitro fertilization: Status: Acute Comment: discussed echo at 22-24 weeks and growth us/weekly nsts at 36 weeks, IOL by 39-40, nl ech 07/03 (2) Supervision of high risk in first trimester: Status: Acute Comment: MARKIE 10/25/22 Armanihayden : Adrian (3) : Status: Acute Qualifiers: Weeks of gestation: 25 weeks Qualified Code(s): Z3A.25 - 25 weeks gestation of Comment: Genetics done on embryos prior to transfer, carrier testing negative, NIPT nl, Anatomy US nl except for echogenic foci- echo 06/30/22 (4) Lab test positive for detection of COVID-19 virus: Status: Acute Comment: 81 mg ASA, 32 36 wk growth US (5) History of tetanus, diphtheria, and acellular pertussis booster vaccination (Tdap): Status: Acute Comment: 08/04/22 Orders: Orders Tdap Immunization Today Z23 - Encounter for immunization POC Urinalysis 2 Dip (Clinic) Today OB Limited With Biometrics 4 Weeks U07.1 - COVID-19 OB Limited With Biometrics 8 Weeks U07.1 - COVID-19 Medications: New Adacel(Tdap Adolesn/Adult)(PF) (diph,pertuss(acel),tet vac(PF)) 0.5 mL IM ONCE 0.5 mL 0RF NS Z23 - Encounter for immunization Patient Instructions: problem list reviewed and updated for most current plan of care and appropriate orders placed. Relevant counseling for the gestational age appropriate provided and ACOG education checklist updated. Continue routine care and follow up. 08/04/22 1141 <Electronically signed by Bettina Collier NP ROUTE SALESPERSON-C> Date Bettina Collier NP ROUTE SALESPERSON-C Cosigner Signature: Date (if applicable) CC: Angelica Sharpe DO Work Phone: Start: 07-17-2022 End: 07-17-2022 Physical Meteorologist Office Visit Report Procedure Note: See Note; NOTES: [facility] [address] [place] [address]. [address] [place], [place] [id number] OFFICE VISIT Date of Service: 07/17/22 MR#: [id number] Acct: [id number] Name: CHELI GA Rep #: [id number] : 1990 Provider: Dr. Noemi Glynn DO Age/Sex: 32/F Location: [facility] Status: Signed Intake Vital Signs 07/17/22 10:37 07/17/22 10:38 Height 5 ft 4 in Weight: 157 lb 3.2 oz Intake Visit Reasons: 24 WK OB Framing Mechanic Required: No Is patient in pain?: No Allergies No Known Allergies Allergy (Verified 07/17/22 10:47) Last Menstrual Period: 01/18/22 : No PFSH PFSH Medical History Kidney stones, calcium oxalate Lab test positive for detection of COVID-19 virus Surgical History History of tonsillectomy Social History Smoking Status: Never smoker alcohol intake: never substance use type: does not use caffeine: Yes what type of physical activity do you participate in: walking seatbelt use: always do you feel safe at home: Yes additional social history: [employer] 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 Date Name GA/Weeks Outcome Route Bth Weight Gen Labor Lgth Anesthesia Del Locatn Provider FOB Unknown 2018 [place] live - full term Female Francine waters HPI 24 WK OB Details: CHELI GA is a 32 year old who presents for routine OB visit. OB Visit MARKIE Calculator Estimated Delivery Date Method Current WG Current Estimate 10/25/22 LMP (Certain) 25w 5d Expected Delivery Route/Plan Labor Preferences- CB/BF classes: [] labor support person: [] labor intervention preferences: [] pain management options preferred: [] cut cord/dad catch: [] : [] PP control planned: [] discussed possible routes of delivery and associated risks: [] special requests: [] Specific Issue/Plans Covid status: [] Flu vaccine: [] Tdap vaccine: [] Rhogam: [] LARC form signed: [] Problem list reviewed and updated with the most current plan of care details and appropriate orders placed. Relevant counseling for the gestational age provided. Continue routine care and follow up unless otherwise noted in visit notes/problem list details Initial Weight: Not Recorded Date -???-???-???-???-???-???-?? ?-???-???-???-???-???- EGA Weight BP Urine Prot -???-???-???-???-???-???-?? ?-???-???-???-???-???- Glucose FHR FuHt Pres Dilation -???-???-???-???-???-???-?? ?-???-???-???-???-???- Effaced St Visit Note 04/17/22 -???-???-???-???-???-???-?? ?-???-???-???-???-???- 12w 5d 147 lb -???-???-???-???-???-???-?? ?-???-???-???-???-???- 160 -???-???-???-???-???-???-?? ?-???-???-???-???-???- JV- CRL cons istent with established GA. IVF transfer. 05/15/22 -???-???-???-???-???-???-?? ?-???-???-???-???-???- 16w 5d 147 lb 103/69 -???-???-???-???-???-???-?? ?-???-???-???-???-???- 150 -???-???-???-???-???-???-?? ?-???-???-???-???-???- SM- no vb cr amping still having vomiting 06/12/22 -???-???-???-???-???-???-?? ?-???-???-???-???-???- 20w 5d 149 lb 108/66 Negative -???-???-???-???-???-???-?? ?-???-???-???-???-???- Negative 155 -???-???-???-???-???-???-?? ?-???-???-???-???-???- JV- nolof, v aginal bleeding, or spotting. 07/17/22 -???-???-???-???-???-???-?? ?-???-???-???-???-???- 25w 5d 157 lb 3.2 oz 110/66 Negati ve -???-???-???-???-???-???-?? ?-???-???-???-???-???- Negative 145 -???-???-???-???-???-???-?? ?-???-???-???-???-???- JV- no lof, v aginal bleeding, or cramping. Glucola ordered ACOG First Trimester First Trimester: Discussed Diagnostics Diagnostics Diagnostics: Blood Type A POSITIVE Antibody Screen NEGATIVE HIV 1 2 Antibody Non-Reactive (Nonreactive) Rubella IgG Antibody Reactive (Nonreactive) Hgb 12.9 g/dL (12.0-15.0) Hct 37.5 % (37-47) Chlamydia DNA (ZACK) Negative (Negative) N.gonorrhoeae DNA (ZACK) Negative (Negative) Details: HIV: Urine Culture: Sequential Screen: NIPT Screen: Results POC Urinalysis 2 Dip (Clinic) Office Urine Glucose Negative Last Edit by Rica Allen on 07/17/22 10:54 Office Urine Protein Negative Last Edit by Rica Allen on 07/17/22 10:54 Coding Level of Care Code OB Routine Diagnoses Lab test positive for detection of COVID-19 virus U07.1 conceived through in vitro fertilization O09.819 Z3A.25 Weeks of gestation: 25 weeks Supervision of high risk in first trimester O09. Infertility Assessment and Plan Assessment and Plan (1) Lab test positive for detection of COVID-19 virus: Status: Acute Comment: 81 mg ASA, 32 36 wk growth US (2) conceived through in vitro fertilization: Status: Acute Comment: discussed echo at 22-24 weeks and growth us/weekly nsts at 36 weeks, IOL by 39-40, nl ech 07/03 (3) : Status: Acute Qualifiers: Weeks of gestation: 25 weeks Qualified Code(s): Z3A.25 - 25 weeks gestation of Comment: Genetics done on embryos prior to transfer, carrier testing negative, NIPT nl, Anatomy US nl except for echogenic foci- echo 06/30/22 (4) Supervision of high risk in first trimester: Status: Acute Comment: MARKIE 10/25/22 SB Handley : Adrian (5) Infertility: Status: Chronic Comment: conceived with IUI last , sees RGI Orders: Orders POC Urinalysis 2 Dip (Clinic) Today Glucose Challenge Gest 1H 50g Today O09.91 - Supervision of high risk , unspecified, first trimester, Z13.1 - Encounter for screening for diabetes mellitus CBC W/Diff, Automated Today O09 - Supervision of high risk , unspecified, first trimester 07/17/22 1328 <Electronically signed by Noemi Rowan DO> Date Noemi Rowan DO Cosigner Signature: Date (if applicable) CC: Angelica Sharpe DO Work Phone: Start: 06-12-2022 End: 06-12-2022 Physical Meteorologist Office Visit Report Procedure Note: See Note; NOTES: [facility] [address] [place] [address] OFFICE VISIT Date of Service: 06/12/22 MR#: [id number] Acct: [id number] Name: CHELI GA Rep #: [id number] : 1990 Provider: Dr. Noemi Glynn DO Age/Sex: 32/F Location: [facility] Status: Signed Intake Vital Signs 06/12/22 11:44 06/12/22 11:46 Height 5 ft 4 in 5 ft 4 in Weight: 149 lb BMI 25.5 BP 108/66 Intake Visit Reasons: 20 WK OB Allergies No Known Allergies Allergy (Verified 06/12/22 11:46) Medications lactobacillus combination no.8 3 billion cell capsule (Adult Probiotic) 3,000 mmu cells PO DAILY 03/01/19 [History Confirmed 06/12/22] docosahexaenoic acid 200 mg capsule ( DHA) mg PO 12/03/20 [History Confirmed 06/12/22] ondansetron HCl 4 mg tablet 4 mg PO Q8H PRN nausea and vomiting 30 days #40 tabs 04/17/22 [Rx Confirmed 06/12/22] aspirin 81 mg tablet,delayed release 81 mg PO DAILY 06/12/22 [History Confirmed 06/12/22] Last Menstral Period: 01/18/22 Zika: Zika virus screening: Negative : No PFSH PFSH Medical History Kidney stones, calcium oxalate Lab test positive for detection of COVID-19 virus Surgical History History of tonsillectomy Social History Smoking Status: Never smoker alcohol intake: never substance use type: does not use caffeine: Yes what type of physical activity do you participate in: walking seatbelt use: always do you feel safe at home: Yes additional social history: [employer] 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 Date Name GA/Weeks Outcome Route Bth Weight Infant Gen Labor Lgth Anesthesia Del Locatn Provider FOB Unknown 2017 [place] live - full term Female Francine waters HPI 20 WK OB Details: CHELI GA is a 32 year old who presents for routine OB visit. OB Visit MARKIE Calculator Estimated Delivery Date Method Current WG Current Estimate 10/25/22 LMP (Certain) 20w 5d Expected Delivery Route/Plan Labor Preferences- CB/BF classes: [] labor support person: [] labor intervention preferences: [] pain management options preferred: [] cut cord/dad catch: [] : [] PP control planned: [] discussed possible routes of delivery and associated risks: [] special requests: [] Specific Issue/Plans Covid status: [] Flu vaccine: [] Tdap vaccine: [] Rhogam: [] LARC form signed: [] Problem list reviewed and updated with the most current plan of care details and appropriate orders placed. Relevant counseling for the gestational age provided. Continue routine care and follow up unless otherwise noted in visit notes/problem list details Initial Weight: Not Recorded Date -???-???-???-???-???-???-?? ?-???-???-???-???-???- EGA Weight BP Urine Prot -???-???-???-???-???-???-?? ?-???-???-???-???-???- Glucose FHR FuHt Pres Dilation -???-???-???-???-???-???-?? ?-???-???-???-???-???- Effaced St Visit Note 04/17/22 -???-???-???-???-???-???-?? ?-???-???-???-???-???- 12w 5d 147 lb -???-???-???-???-???-???-?? ?-???-???-???-???-???- 160 -???-???-???-???-???-???-?? ?-???-???-???-???-???- JV- CRL cons istent with established GA. IVF transfer. 05/15/22 -???-???-???-???-???-???-?? ?-???-???-???-???-???- 16w 5d 147 lb 103/69 -???-???-???-???-???-???-?? ?-???-???-???-???-???- 150 -???-???-???-???-???-???-?? ?-???-???-???-???-???- SM- no vb cr amping still having vomiting 06/12/22 -???-???-???-???-???-???-?? ?-???-???-???-???-???- 20w 5d 149 lb 108/66 Negative -???-???-???-???-???-???-?? ?-???-???-???-???-???- Negative 155 -???-???-???-???-???-???-?? ?-???-???-???-???-???- JV- nolof, v aginal bleeding, or spotting. ACOG First Trimester First Trimester: Discussed Diagnostics Diagnostics Diagnostics: Blood Type A POSITIVE Antibody Screen NEGATIVE HIV 1 2 Antibody Non-Reactive (Nonreactive) Rubella IgG Antibody Reactive (Nonreactive) Hgb 12.9 g/dL (12.0-15.0) Hct 37.5 % (37-47) Chlamydia DNA (ZACK) Negative (Negative) N.gonorrhoeae DNA (ZACK) Negative (Negative) Details: HIV: Urine Culture: Sequential Screen: NIPT Screen: Results POC Urinalysis 2 Dip (Clinic) Office Urine Glucose Negative Last Edit by Ele Jimenez on 06/12/22 11:49 Office Urine Protein Negative Last Edit by Ele Jimenez on 06/12/22 11:49 Coding Level of Care Code OB Routine Diagnoses Lab test positive for detection of COVID-19 virus U07.1 conceived through in vitro fertilization O09.819 Z3A.20 Weeks of gestation: 20 weeks Supervision of high risk in first trimester O09.91 Infertility Assessment and Plan Assessment and Plan (1) Lab test positive for detection of COVID-19 virus: Status: Acute Comment: 81 mg ASA, 32 36 wk growth US (2) conceived through in vitro fertilization: Status: Acute Comment: discussed echo at 22-24 weeks and growth us/weekly nsts at 36 weeks, IOL by 39-40 (3) : Status: Acute Qualifiers: Weeks of gestation: 20 weeks Qualified Code(s): Z3A.20 - 20 weeks gestation of Comment: Genetics done on embryos prior to transfer, carrier testing negative, NIPT nl, Anatomy US nl except for echogenic foci- echo 06/30/22 (4) Supervision of high risk in first trimester: Status: Acute Comment: MARKIE 10/25/22 SB Handley : Adrian (5) Infertility: Status: Chronic Comment: conceived with IUI last , sees RGI Orders: Orders POC Urinalysis 2 Dip (Clinic) Today 06/12/22 1224 <Electronically signed by Noemi Rowan DO> Date Noemi Rowan DO Cosigner Signature: Date (if applicable) CC: Angelica Sharpe DO Work Phone: Start: 05-15-2022 End: 05-15-2022 Physical Meteorologist Office Visit Report Procedure Note: See Note; NOTES: [facility] [address] [place] [address] OFFICE VISIT Date of Service: 05/15/22 MR#: [id number] Acct: [id number] Name: CHELI GA Rep #: [id number] : 1990 Provider: Dr. Shanita drake MD Age/Sex: 32/F Location: [facility] Status: Signed Intake Vital Signs 05/15/22 10:34 05/15/22 10:35 Height 5 ft 4 in 5 ft 4 in Weight: 147 lb BMI 25.2 BP 103/69 Intake Visit Reasons: 17 WK OB Chief Complaint: est ob Framing Mechanic Required: No Is patient in pain?: No Allergies No Known Allergies Allergy (Verified 04/17/22 09:21) Medications lactobacillus combination no.8 3 billion cell capsule (Adult Probiotic) 3,000 mmu cells PO DAILY 03/01/19 [History Confirmed 05/15/22] docosahexaenoic acid 200 mg capsule ( DHA) mg PO 12/03/20 [History Confirmed 05/15/22] ondansetron HCl 4 mg tablet 4 mg PO Q8H PRN nausea and vomiting 30 days #40 tabs 04/17/22 [Rx Confirmed 05/15/22] Last Menstral Period: 01/18/22 Zika: Zika virus screening: Negative : No PFSH PFSH Medical History (Updated 05/15/22 @ 11:[address] 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 Date Name GA/Weeks Outcome Route Bth Weight Gen Labor Lgth Anesthesia Del Locatn Provider FOB Unknown 2018 [facility] live - full term Female [facility] HPI 17 WK OB Details: CHELI GA is a 32 year old who presents for routine OB visit. OB Visit MARKIE Calculator Estimated Delivery Date Method Current WG Current Estimate 10/25/22 LMP (Certain) 16w 5d Expected Delivery Route/Plan Labor Preferences- CB/BF classes: [] labor support person: [] labor intervention preferences: [] pain management options preferred: [] cut cord/dad catch: [] : [] PP control planned: [] discussed possible routes of delivery and associated risks: [] special requests: [] Specific Issue/Plans Covid status: [] Flu vaccine: [] Tdap vaccine: [] Rhogam: [] LARC form signed: [] Problem list reviewed and updated with the most current plan of care details and appropriate orders placed. Relevant counseling for the gestational age provided. Continue routine care and follow up unless otherwise noted in visit notes/problem list details Initial Weight: Not Recorded Date -???-???-???-???-???-???-?? ?-???-???-???-???-???- EGA Weight BP Urine Prot -???-???-???-???-???-???-?? ?-???-???-???-???-???- Glucose FHR FuHt Pres Dilation -???-???-???-???-???-???-?? ?-???-???-???-???-???- Effaced St Visit Note 04/17/22 -???-???-???-???-???-???-?? ?-???-???-???-???-???- 12w 5d 147 lb -???-???-???-???-???-???-?? ?-???-???-???-???-???- 160 -???-???-???-???-???-???-?? ?-???-???-???-???-???- JV- CRL cons istent with established GA. IVF transfer. 05/15/22 -???-???-???-???-???-???-?? ?-???-???-???-???-???- 16w 5d 147 lb 103/69 -???-???-???-???-???-???-?? ?-???-???-???-???-???- 150 -???-???-???-???-???-???-?? ?-???-???-???-???-???- SM- no vb cr amping still having vomiting ACOG First Trimester First Trimester: Discussed Diagnostics Diagnostics Diagnostics: Pap Smear Negative Chlamydia DNA (ZACK) Negative (Negative) N.gonorrhoeae DNA (ZACK) Negative (Negative) Details: HIV: Urine Culture: Sequential Screen: NIPT Screen: Coding Level of Care Code OB Routine Diagnoses Z3A.16 Weeks of gestation: 16 weeks Supervision of high risk in first trimester O09.91 Infertility conceived through in vitro fertilization O09.819 Assessment and Plan Assessment and Plan (1) : Status: Acute Qualifiers: Weeks of gestation: 16 weeks Qualified Code(s): Z3A.16 - 16 weeks gestation of Comment: Genetics done on embryos prior to transfer, carrier testing negative (2) Supervision of high risk in first trimester: Status: Acute Comment: MARKIE 10/25/22 SB Handley : Adrian (3) Infertility: Status: Chronic Comment: conceived with IUI last , sees RGI (4) conceived through in vitro fertilization: Status: Acute Comment: discussed echo at 22-24 weeks and growth us/weekly nsts at 36 weeks, IOL by 39-40 Orders: Orders POC Urinalysis 2 Dip (Clinic) Today 05/15/22 1115 <Electronically signed by Shanita Hendrix MD> Date Shanita Hendrix MD Cosigner Signature: Date (if applicable) CC: Angelica Sharpe DO Work Phone: Start: 04-17-2022 End: 04-17-2022 Physical Meteorologist Office Visit Report Procedure Note: See Note; NOTES: [facility] [address] [place] [address]. [address] [place], [place] [address] OFFICE VISIT Date of Service: 04/17/22 MR#: [id number] Acct: [id number] Name: CHELI GA Rep #: [id number] : 1990 Provider: Dr. Noemi Glynn DO Age/Sex: 32/F Location: [facility] Status: Signed Intake Vital Signs 04/03/21 10:04 04/17/22 09:23 04/17/22 09:25 Height 5 ft 4 in 5 ft 4 in 5 ft 4 in Weight: 147 lb BMI 25.2 Intake Visit Reasons: OB xfer, RGI release, approx 13 wks Framing Mechanic Required: No Is patient in pain?: No Allergies No Known Allergies Allergy (Verified 04/17/22 09:21) Medications lactobacillus combination no.8 3 billion cell capsule (Adult Probiotic) 3,000 mmu cells PO DAILY 03/01/19 [History Confirmed 04/17/22] docosahexaenoic acid 200 mg capsule ( DHA) mg PO 12/03/20 [History Confirmed 04/17/22] ondansetron HCl 4 mg tablet 4 mg PO Q8H PRN nausea and vomiting 30 days #40 tabs 04/17/22 [Rx Confirmed 04/17/22] Last Menstral Period: 01/18/22 Zika: Zika virus screening: Negative : No PFSH PFSH Medical History (Updated 04/17/22 @ 09:38 by Colette Ling) Kidney stones, calcium oxalate Surgical History History of tonsillectomy Social History Smoking Status: Never smoker alcohol intake: never substance use type: does not use caffeine: Yes what type of physical activity do you participate in: walking seatbelt use: always do you feel safe at home: Yes additional social history: Bannerman 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 Date Name GA/Weeks Outcome Route Bth Weight Gen Labor Lgth Anesthesia Del Locatn Provider FOB Unknown 2018 [facility] live - full term Female [facility] HPI OB xfer, RGI release, approx 13 wks Details: CHELI GA is a 32 year old who presents for New OB visit. OB Visit MARKIE Calculator Estimated Delivery Date Method Current WG Current Estimate 10/25/22 LMP (Certain) 12w 5d Estimated Due Date: 03/19/21 Expected Delivery Route/Plan Labor Preferences- CB/BF classes: [] labor support person: [] labor intervention preferences: [] pain management options preferred: [] cut cord/dad catch: [] : [] PP control planned: [] discussed possible routes of delivery and associated risks: [] special requests: [] Specific Issue/Plans Covid status: [] Flu vaccine: [] Tdap vaccine: [] Rhogam: [] LARC form signed: [] Problem list reviewed and updated with the most current plan of care details and appropriate orders placed. Relevant counseling for the gestational age provided. Continue routine care and follow up unless otherwise noted in visit notes/problem list details Initial Weight: Not Recorded Date -???-???-???-???-???-???-?? ?-???-???-???-???-???- EGA Weight BP Urine Prot -???-???-???-???-???-???-?? ?-???-???-???-???-???- Glucose FHR FuHt Pres Dilation -???-???-???-???-???-???-?? ?-???-???-???-???-???- Effaced St Visit Note 04/17/22 -???-???-???-???-???-???-?? ?-???-???-???-???-???- 12w 5d 147 lb -???-???-???-???-???-???-?? ?-???-???-???-???-???- 160 -???-???-???-???-???-???-?? ?-???-???-???-???-???- JV- CRL cons istent with established GA. IVF transfer. Menstrual History Last Menstral Period: 01/18/22 On hormonal BC at conception: No Antepartum Record Genetic Screening: Congenital Heart Defect: Other, Neural Tube Defect: Other, Hemoglobinopathy Or Carrier: Other, Cystic Fibrosis: Other, Chromosome Abnormality: Other, Gray-Sachs: Other, Hemophilia: Other, Intellectual Disability/Autism: Other, Recurrent Loss/Stillbirth: Other, Other Structural Defect: Other, Other Genetic Disease: Other and Maternal Metabolic Disorder: Other Infection History: Live with someone with TB or Exposed to TB: No, Patient or Partner has history of Genital Herpes: No, Rash or Viral illness since last mentrual period: No, Prior GBS-Infected child: No, History of STD: No, HIV Infection: No, History of Hepatitis: No, Recent travel outside of [place]: No, Concern for hepatitis exposure: No and Varicella immune: Yes Medical History Medical History: Negative: Diabetes, Hypertension, Heart disease, Auto-immune disorder, Kidney disease/UTI, Neurologic/epilepsy, Psychiatric, Depression/ depression, Hepatitis/liver disease, Varicosities/phlebitis, Thyroid dysfunction, Trauma/domestic violence, History of blood transfusions, D (Rh) Sensitized, Pulmonary (e.g.,TB,Asthma), Seasonal allergies, Drug/latex allergies/reactions, Breast, Reshipping Clerk surgery, Operations/hospitalizations , Anesthetic complications, History of abnormal pap, Uterine anomaly/ehsan, Infertility, Anti-retroviral treatment, Relevant family history and Other ACOG First Trimester First Trimester: Discussed ROS Const Reports system reviewed and no additional complaints, except as documented, Reports fatigue and Denies fever(s) Eyes Reports system reviewed and no additional complaints, except as documented ENT Reports system reviewed and no additional complaints, except as documented Card Denies chest pain and Denies dyspnea Resp Reports system reviewed and no additional complaints, except as documented, Denies cough and Denies dyspnea GI Denies abdominal pain and Reports nausea Reports system reviewed and no additional complaints, except as documented Musc Reports system reviewed and no additional complaints, except as documented Skin/Breast Reports system reviewed and no additional complaints, except as documented Neuro Yes system reviewed and no additional complaints, except as documented Psych Reports system reviewed and no additional complaints, except as documented Endo Reports system reviewed and no additional complaints, except as documented and Reports fatigue Exam Const General: healthy appearing, comfortable and no acute distress Orientation: alert [facility] Head: normal to inspection, normocephalic and atraumatic Ears: hearing grossly normal bilaterally and external ears normal Nose: external nose normal and nares normal Mouth: oral mucosae normal Teeth and gingiva: dentition normal Eyes General: appearance normal, both eyes and all related structures Neck Neck: normal visual inspection, no lymphadenopathy and supple Thyroid: thyroid normal Chest Chest palpation inspection: normal inspection of the chest Breast inspection: normal inspection of the breasts and normal inspection of the axillae Breast palpation: normal palpation of the breasts and normal palpation of the axillae Resp Effort Inspection: normal respiratory effort GI Inspection: normal to inspection Palpation: soft and no hepatosplenomegaly General: bladder normal to palpation External Female Exam: normal external appearance and normal appearance of the urethra Urethra: normal appearance of the urethra Speculum Exam - Vagina: normal appearance of the vagina and normal vaginal discharge Speculum Exam - Cervix: normal appearance of the cervix Bimanual Exam- Vagina Uterus: normal bimanual exam, bladder normal to palpation, non-tender and other Bimanual Exam- Adnexa, other: non-tender Skin General: no rashes or lesions noted Neuro Motor: muscle tone normal throughout and no movement abnormalities noted Extrem General: normal to inspection and full ROM Supplemental Info ACOG book given and patient encouraged to read about nutrition, exercise, weight gain, and food avoidance in . Coding Level of Care Code OB Routine Diagnoses Z34.90 Supervision of high risk in first trimester O09.91 Infertility Assessment and Plan Assessment and Plan (1) : Status: Acute Comment: Genetics done on embryos prior to transfer, carrier testing negative (2) Supervision of high risk in first trimester: Status: Acute Comment: SB Armanihayden : Adrian (3) Infertility: Status: Chronic Comment: conceived with IUI last , sees RGI Orders: Orders Type Screen Today O09.91 - Supervision of high risk , unspecified, first trimester Hepatitis B Surface Antigen Today O09.91 - Supervision of high risk , unspecified, first trimester Hepatitis C Antibody Today O09.91 - Supervision of high risk , unspecified, first trimester HIV - [facility] Today O09.91 - Supervision of high risk , unspecified, first trimester Syphilis Antibodies Today O09.91 - Supervision of high risk , unspecified, first trimester Rubella IgG Today O09.91 - Supervision of high risk , unspecified, first trimester CBC W/Diff, Automated Today O09.91 - Supervision of high risk , unspecified, first trimester Culture, Urine Today O09.91 - Supervision of high risk , unspecified, first trimester Chlamydia/GC ZACK aptima Today O09.91 - Supervision of high risk , unspecified, first trimester Urine Drug Screen ([facility]) Today O09.91 - Supervision of high risk , unspecified, first trimester PAP IG HPV APTIMA 16/18,45 Today Z12.4 - Encounter for screening for malignant neoplasm of cervix Medications: New ondansetron HCl 4 mg PO Q8H 30 days PRN 40 tabs 3RF nausea and vomiting Plan Patient oriented to practice and discussed care expectations and screenings. ACOG book offered to patient. Discussed routine and specially indicated labs if needed- patient consents to testing. see problem list details for plan information. Optional screening including carrier screenings, neural tube defect screening, sequential screening, and NIPT screening offered to patient and patient chose: embryo was tested as was carrier testing. 04/17/22 1023 <Electronically signed by Noemi Rowan DO> Date Noemi Rowan DO Cosigner Signature: Date (if applicable) CC: Angelica Jeff DO Work Phone: Start: 04-03-2021 End: 04-03-2021 Physical Meteorologist Office Visit Report Comments: See Note; NOTES: [facility] [address] [place], [place] [address] OFFICE VISIT Date of Service: 04/03/21 MR#: [id number] Acct: [id number] Name: CHELI GA Rep #: [id number] : 1990 Provider: Dr. 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) Chief Complaint: est annual Framing Mechanic Required: No Is patient in pain?: No Allergies No Known Allergies Allergy (Verified 12/03/20 10:42) Medications lactobacillus combination no.8 3 billion cell capsule 3,000 mmu cells PO DAILY 03/01/19 [History Confirmed 04/03/21] docosahexaenoic acid 200 mg capsule mg PO 02/09/21 [History Confirmed 04/03/21] Is last menstrual period known: No Post menopausal: No Patient : No : No PFSH Medical History Kidney stones, calcium oxalate Surgical History History of tonsillectomy Social History Smoking Status: Never smoker alcohol intake: never substance use type: does not use caffeine: Yes what type of physical activity do you participate in: walking seatbelt use: always do you feel safe at home: Yes additional social history: Shahid Theodore 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 Date Name GA/Weeks Outcome Route Bth Weight Infant Gen Labor Lgth Anesthesia Del Locatn Provider [facility]OB Unknown [facility] HPI Encounter for routine gynecological examination: Details: CHELI GA is a 31 year old who presents for annual exam. planning GnRH injections and IUI starting at the end of this month Last PAP: 2019 nl History of abnormal PAP: no Other preventative health care screenings: pcp jeff Details: CHELI GA is a 31 year old who presents for annual exam. Last PAP: [] History of abnormal PAP: [] Last mammogram: [] History of abnormal mammogram: [] Colon cancer screening: [] Other preventative health care screenings: [] Female Reproductive History Cycle Length: 21-35 Bleeding Duration: 5 Questions: metorrhagia: No, sexually active: Yes, dyspareunia: No and PCB: No Menopausal Symptoms: No hot flashes, No night sweats, No weight change, No mood changes, No difficulty concentrating, No sleep problems and No change in libido ROS Const Constitutional: Reports as per HPI; Denies fatigue, increased appetite, poor appetite, night sweats, weight gain or weight loss Cardio Card: Denies chest pain Resp Resp: Denies cough or dyspnea GI GI: Reports as per HPI; Denies abdominal pain, bloating, constipation, nausea or vomiting : Reports as per HPI and other; Denies difficulty voiding, dysuria, hematuria, hot flashes, nipple discharge, pelvic pain, prolapse symptoms, urinary frequency, urinary incontinence, urinary urgency, vaginal discharge, vaginal dryness, vaginal odor or vaginal pruritus Skin Skin/Breast: Denies changing lesions, breast mass, breast pain, breast skin changes or nipple discharge Psych Psych: Denies anxiety, change in libido, depression or difficulty concentrating Exam Const General: cooperative, healthy appearing, comfortable, no acute distress, well developed and well groomed [facility] Head: normal to inspection and normocephalic Ears: hearing grossly normal bilaterally and external ears normal Nose: external nose normal Face and sinus: normal facial exam Neck Neck: normal visual inspection, full ROM and no lymphadenopathy Thyroid: thyroid normal Chest Chest palpation inspection: normal inspection of the chest Breast inspection: normal inspection of the breasts and normal inspection of the axillae Breast palpation: normal palpation of the breasts, normal palpation of the axillae and no axillary lymphadenopathy Resp Effort Inspection: normal respiratory effort GI Inspection: normal to inspection and non-distended Palpation: soft, no hepatosplenomegaly and no guarding General: bladder normal to palpation External Female Exam: normal external appearance, normal appearance of the urethra and no lesions Urethra: normal appearance of the urethra and normal palpation Speculum Exam - Vagina: normal appearance of the vagina and normal vaginal discharge Speculum Exam - Cervix: normal appearance of the cervix, no cervical discharge, no lesions and nontender Bimanual Exam- Vagina Uterus: normal bimanual exam, uterine size normal, bladder normal to palpation, No tender, uterine mobility normal, consistency normal, non-tender and no cervical motion tenderness Bimanual Exam- Adnexa, other: normal adnexae, no masses and non-tender Skin General: no rashes or lesions noted Neuro General: patient alert, moves all extremities and no focal motor deficits Extrem General: normal to inspection and no pedal edema Psych Appearance: grossly normal Mental Status: mental status grossly normal Affect: normal affect Speech and Movement: speech and movement normal Attitude: cooperative Coding Level of Care Code Off vis,est,prev 18-39yrs Diagnoses Encounter for routine gynecological examination Z01.411 Gynecological examination findings: abnormal findings PRESENT Infertility Assessment and Plan Assessment and Plan (1) Encounter for routine gynecological examination: Qualifiers: Gynecological examination findings: abnormal findings PRESENT Qualified Code(s): Z01.411 - Encounter for gynecological examination (general) (routine) with abnormal findings Plan - Dr. Shanita Hendrix MD: Cervical cancer screening: pap Breast cancer screening: clinical STD prevention and contraceptive options including their risks, benefits, and alternatives were reviewed with the patient and she chooses: TTC Encouraged maintenance of a healthy weight and active lifestyle and handout given. Calcium/vitamin D recommendations provided. Annual exam handout including recommendations for good health guidelines and basic screening information given. Problem list up to date, see problem list details for any additional plan information. follow up in one year for annual health maintenance exam or sooner if needed. (2) Infertility: Status: Chronic Comment: conceived with IUI last , sees RGI Plan Details Other Orders: Orders: PAP IG HPV APTIMA 16/18,45 Today 04/03/21 1038 <Electronically signed by Shanita Hendrix MD> Date Shanita Hendrix MD Cosigner Signature: Date (if applicable) CC: Angelica Sharpe DO Work Phone: Start: 12-03-2020 End: 12-03-2020 Physical Meteorologist Office Visit Report Comments: See Note; NOTES: [facility] [address] [place] [address] OFFICE VISIT Date of Service: 12/03/20 MR#: [id number] Acct: [id number] Name: CHELI GA Rep #: [id number] : 1990 Provider: DARRELL mcclendon Age/Sex: 30/F Location: [facility] Status: Signed Intake Vital Signs 12/03/20 Height 5 ft 4 in 12/03/20 Weight: 150 lb 8 oz 12/03/20 BMI 25.8 12/03/20 BP 102/60 Intake Visit Reasons: recurrent yeast infection Framing Mechanic Required: No Accompanied by: self Allergies No Known Allergies Allergy (Verified 12/03/20 10:42) Medications lactobacillus combination no.8 3 billion cell capsule 3,000 mmu cells PO DAILY 03/01/19 [History Confirmed 12/03/20] docosahexaenoic acid 200 mg capsule mg PO 12/03/20 [History Confirmed 12/03/20] Is last menstrual period known: Yes Last Menstral Period: 11/08/20 Post menopausal: No Patient : No : No Nurse's Note: recurrent yeast infection x 3 in 1 year. 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 Treated with diflucan in February and Aug 2020 and responded. Responded to OTC med on [place]. Symptoms of itching recurred yesteday with increased discharge. Denies odor. and denies STD concerns. Female Reproductive History Last Menstral Period: 11/08/20 Pregancy History 1 Elective abortions Hx Para 1 Spontaneous abortions Hx # Term Pregnancies Ectopic pregnancies Hx # Pregnancies Multiple births # of living children Past Pregnancies Del. Date Name GA/Weeks Outcome Route Bth Weight Gen Labor Lgth Anesthesia Del Locatn Provider FOB Unknown 2018 [facility] live - full term Female [facility] ROS Const Constitutional: Reports system reviewed and no additional complaints, except as docu Eyes Eyes: Reports system reviewed and no additional complaints, except as docu GI GI: Denies abdominal pain or change in bowel habits : Reports as per HPI Exam Const General: no acute distress Nutritional Appearance: well nourished Orientation: oriented x3 General: bladder normal to palpation External Female Exam: normal appearance of the urethra, erythema Urethra: normal appearance of the urethra Speculum Exam - Vagina: abnormal vaginal discharge white, vaginal erythema, no lesions, nontender Speculum Exam - Cervix: normal appearance of the cervix, other (smooth, nonfriable) Bimanual Exam- Vagina Uterus: normal bimanual exam, uterine size normal, bladder normal to palpation, uterine shape normal, uterine mobility normal, uterus non-tender Bimanual Exam- Adnexa, other: normal adnexae, no adnexal masses, adnexae non-tender Assessment Plan Problems 1. Vulvovaginitis N76.0 Plan Probable recurrence of yeast but will wait on ESTHER BV result. Call result If negative BV will treat with 3 dose course of fluconazole Comp vaginal culture and will check sensitivities for any yeast growth. RTO prn Orders Orders: POC BV Blue Test Today N76.0 Culture, Genital Comprehensive Today N76.0 Coding Level of Care Code Off vis,est,level 3 Diagnoses Vulvovaginitis N76.0 12/03/20 1059 <Electronically signed by Bettina RAMÍREZ> Date Bettina RAMÍREZ Cosigner Signature: Date (if applicable) CC: Angelica Sharpe Start: 03-04-2020 End: 03-04-2020 /[facility] Comments: See Note; NOTES: [facility] [address] [place] [address] OFFICE VISIT Date of Service: 03/04/20 MR#: [id number] Acct: [id number] Name: CHELI GA Rep #: [id number] : 1990 Provider: Dr. Shanita drake MD Age/Sex: 30/F Location: [facility] Status: Signed Intake Vital Signs 03/04/20 BMI 25.2 03/04/20 Height 5 ft 4 in 03/04/20 Weight: 145 lb 03/04/20 BMI 24.9 03/04/20 BP 118/80 Intake Visit Reasons: ANNUAL EXAM Chief Complaint: est annual Framing Mechanic Required: No Is patient in pain?: No Allergies No Known Allergies Allergy (Verified 03/04/20 08:42) Medications lactobacillus combination no.8 3 billion cell capsule 3,000 mmu cells PO DAILY 03/01/19 [History Confirmed 03/04/20] multivitamin,zb-gvvh-ospqqt ls 1 tab PO DAILY 03/01/19 [History Confirmed 03/04/20] Post menopausal: No Patient : No : No PFSH Medical History Kidney stones, calcium oxalate (Acute) Surgical History History of tonsillectomy (Acute) Social History (Updated 03/04/20 @ 09:[address] 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 Date Name GA/Weeks Outcome Route Bth Weight [facility] Unknown 2018 [facility] - [facility] HPI ANNUAL EXAM: Details: CHELI GA is a 30 year old who presents for annual exam. co some white vaginal discharge and irritation over the weekend Last PAP: 03/12 nl History of abnormal PAP: no has pcp- dr sharpe. Female Reproductive History Cycle Length: 21-35 Bleeding Duration: 5 Control Method: male infertility Questions: Metorrhagia: No, Sexually active: Yes, Dyspareunia: No, PCB: No Menopausal Symptoms: Yes hot flashes ROS Const Constitutional: Reports as per HPI; denies fatigue, increased appetite, poor appetite, weight gain or weight loss Cardio Card: Denies chest pain Resp Resp: Denies cough or dyspnea GI GI: Reports as per HPI; denies abdominal pain, bloating, constipation, nausea or vomiting : Reports as per HPI, hot flashes, vaginal discharge and other; denies difficulty urinating, painful urination, blood in urine, nipple discharge, pelvic pain, prolapse symptoms, urinary frequency, urinary incontinence, urinary urgency, vaginal dryness, vaginal odor or vaginal itching Skin Skin/Breast: Denies changing lesions, breast lump, breast pain, breast skin changes or nipple discharge Psych Psych: Denies anxiety or depression Exam Const General: cooperative, healthy appearing, comfortable, no acute distress, well developed, well groomed [facility] Head: normal to inspection, normocephalic Ears: hearing grossly normal bilaterally, external ears normal Nose: external nose normal Face and sinus: normal facial exam Neck Neck: normal visual inspection, full ROM, no lymphadenopathy Thyroid: thyroid normal Chest Chest palpation inspection: normal inspection of the chest Breast inspection: normal inspection of the breasts, normal inspection of the axillae Breast palpation: normal palpation of the breasts, normal palpation of the axillae, no axillary lymphadenopathy Resp Effort Inspection: normal respiratory effort GI Inspection: normal to inspection, non-distended Palpation: soft, no hepatosplenomegaly, no guarding General: bladder normal to palpation External Female Exam: normal external appearance, normal appearance of the urethra, no lesions Urethra: normal appearance of the urethra, normal palpation Speculum Exam - Vagina: normal appearance of the vagina, normal vaginal discharge Speculum Exam - Cervix: normal appearance of the cervix, no cervical discharge, no lesions, nontender Bimanual Exam- Vagina Uterus: normal bimanual exam, uterine size normal, bladder normal to palpation, No cervical tenderness, uterine mobility normal, uterine consistency normal, uterus non- tender, no cervical motion tenderness Bimanual Exam- Adnexa, other: normal adnexae, no adnexal masses, adnexae non-tender Skin General: no rashes or lesions noted Neuro General: alert, moves all extremities, no focal motor deficits Extrem General: normal to inspection, no pedal edema Psych Appearance: grossly normal Mental Status: mental status grossly normal Affect: normal affect Speech and Movement: speech and movement normal Attitude: cooperative Assessment Plan Problems 1. Infertility conceived with IUI last , sees [facility]GI 2. Encounter for gynecological examination (general) (routine) with abnormal findings Z01.411 Plan Cervical cancer screening: pap 2019 nl Breast cancer screening: clinical STD prevention and contraceptive options including their risks, benefits, and alternatives were reviewed with the patient and she chooses: none Encouraged maintenance of a healthy weight and active lifestyle and handout given. Calcium/vitamin D recommendations provided. Annual exam handout including recommendations for good health guidelines and basic screening information given. Problem list up to date, see problem list details for any additional plan information. follow up in one year for annual health maintenance exam or sooner if needed. Orders Orders: Culture, Genital Comprehensive Today N89.8 Coding Level of Care Code Off vis,est,prev 18-39yrs Diagnoses Infertility Encounter for gynecological examination (general) (routine) with abnormal findings Z01.411 03/04/20904 <Electronically signed by Shanita Hendrix MD> Date Shanita Hendrix MD Cosigner Signature: Date (if applicable) CC: Angelica Sharpe Tonsillectomy [place] Comment on above: 1996 Tonsillectnelia Joiner LPN Comment on above: 1996 Tonsillectnelia [facility]itch [facility] Comment on above: 1996 Tonsillectnelia Fitch [facility] Comment on above: 1996 Tonsillectnelia [facility]ONT[facility]OT Comment on above: 1996 Plan of Treatment Date Care Activity Detail Author Start: 04-08-2023 Procedure Education Eprescribed prescriptions (G8553) [facility] Work Phone: Start: 04-08-2023 Provider Instructions for Treatment Skin Tags [facility] Work Phone: Start: 12-11-2022 Procedure Education Eprescribed prescriptions (G8553) [facility] Work Phone: Start: 12-11-2022 Provider Instructions for Treatment Reviewed Lab [facility] Work Phone: Start: 12-11-2022 Assay of triglycerides TRIGLYCERIDES (31877) [facility] Work Phone: Start: 12-02-2022 Lipid panel LIPID PANEL (37825) [facility] Work Phone: Start: 12-02-2022 Procedure Education Eprescribed prescriptions (G8553) [facility]; [facility] Work Phone: Start: 12-29-2021 Procedure Education Eprescribed prescriptions (G8553) [facility] Work Phone: Start: 06-25-2021 Influenza vaccination Flu vaccine (#1) [facility] Start: 01-02-2021 Procedure Education Eprescribed prescriptions (G8553) [facility] Work Phone: Start: 01-02-2021 Lipid panel LIPID PANEL (73216) [facility] Work Phone: Start: 01-02-2021 HbA1c (Bld) [Mass fraction] HGB A1C (50836) [facility] Work Phone: Start: 05-14-2020 Procedure Education Eprescribed prescriptions (G8553) [facility] Work Phone: Start: 05-14-2020 Provider Instructions for Treatment [facility] Work Phone: Start: 02-07-2020 Screening for malignant neoplasm of cervix [facility] Start: 01-01-2020 Procedure Education Eprescribed prescriptions (G8553) [facility] Work Phone: Start: 2011 Screening for malignant neoplasm of cervix Pap smear [facility] Start: 2009 DTaP/Tdap/Td vaccine ( - Tdap) DTaP/Tdap/Td vaccine (1 - Tdap) [facility] Start: 2005 HIV screening HIV screen [facility] Start: 2002 Depression Screen Depression Screen [facility] Start: 1995 COVID-19 Vaccine (1) COVID-19 Vaccine (1) [facility] Start: 1991 Varicella vaccine (1 of 2 - 2-dose childhood series) Varicella vaccine (1 of 2 - 2-dose childhood series) [facility] Start: 1990 Hepatitis C screening Hepatitis C screen [facility] Work Phone: [facility] Work Phone: Immunizations Immunization Date Immunization Notes Care Provider Marques de la rosa 10-25-2018 influenza, seasonal, injectable Angelica Zamudioon [facility] Work Phone: Payers Date Payer Category Payer Unknown [id number] 1990 Unknown [id number] 1990 Unknown [id number] 1959 Unknown [id number] Unknown [facility] Social History Date Type Detail Facility Alcohol Use Alcohol Use [facility] Work Phone: Comment on above: monthly once per wk 3x per wk 1hr Tobacco smoking status [facility] Tobacco smoking consumption unknown [facility] Work Phone: Start: 1990 Sex Assigned At Not on file [facility] Work Phone: Instructions Note Date & Type Note Facility Instructions Name Patient Instructions Indication:BMI 24.0-24.9, adult Start:29-Dec-2021 Instruction Type:Provider Instructions for Treatment How to Access Health Information Online using Patient Portal and [employer] Apps Indication:BMI 24.0-24.9, adult Start:29-Dec-2021 Instruction Type:Patient Education Patient Instructions Indication:Non-smoker Start: Instruction Type:Provider Instructions for Treatment How to Access Health Information Online using Patient Portal and [employer] Apps Indication:Non-smoker Start: Instruction Type:Patient Education How to access health information online Indication:Non-smoker Start: 0 Instruction Type:Patient Education How to access health information online - Detail Indication:Non-smoker Start: 0 Instruction Type:Patient Education Patient Instructions Indication:Non-smoker Start: 0 Instruction Type:Provider Instructions for Treatment How to access health information online Indication:Non-smoker Start:01-Jan-2020 Instruction Type:Patient Education How to access health information online - Detail Indication:Non-smoker Start:01-Jan-2020 Instruction Type:Patient Education Patient Instructions Indication:Non-smoker Start:01-Jan-2020 Instruction Type:Provider Instructions for Treatment [facility] Work Phone: Instructions Note Date & Type Note Facility Instructions Name Patient Instructions Indication:BMI 24.0-24.9, adult Start:29-Dec-2021 Instruction Type:Provider Instructions for Treatment How to Access Health Information Online using Patient Portal and [employer] Apps Indication:BMI 24.0-24.9, adult Start:29-Dec-2021 Instruction Type:Patient Education Patient Instructions Indication:Non-smoker Start: Instruction Type:Provider Instructions for Treatment How to Access Health Information Online using Patient Portal and [employer] Apps Indication:Non-smoker Start: Instruction Type:Patient Education How to access health information online Indication:Non-smoker Start: 0 Instruction Type:Patient Education How to access health information online - Detail Indication:Non-smoker Start: 0 Instruction Type:Patient Education Patient Instructions Indication:Non-smoker Start: 0 Instruction Type:Provider Instructions for Treatment How to access health information online Indication:Non-smoker Start:01-Jan-2020 Instruction Type:Patient Education How to access health information online - Detail Indication:Non-smoker Start:01-Jan-2020 Instruction Type:Patient Education Patient Instructions Indication:Non-smoker Start:01-Jan-2020 Instruction Type:Provider Instructions for Treatment [facility] Work Phone: Instructions Note Date & Type Note Facility Instructions Name Patient Instructions Indication:BMI 24.0-24.9, adult Start:29-Dec-2021 Instruction Type:Provider Instructions for Treatment How to Access Health Information Online using Patient Portal and [employer] Apps Indication:BMI 24.0-24.9, adult Start:29-Dec-2021 Instruction Type:Patient Education Patient Instructions Indication:Non-smoker Start: Instruction Type:Provider Instructions for Treatment How to Access Health Information Online using Patient Portal and [employer] Apps Indication:Non-smoker Start: Instruction Type:Patient Education How to access health information online Indication:Non-smoker Start: 0 Instruction Type:Patient Education How to access health information online - Detail Indication:Non-smoker Start: 0 Instruction Type:Patient Education Patient Instructions Indication:Non-smoker Start: 0 Instruction Type:Provider Instructions for Treatment How to access health information online Indication:Non-smoker Start:01-Jan-2020 Instruction Type:Patient Education How to access health information online - Detail Indication:Non-smoker Start:01-Jan-2020 Instruction Type:Patient Education Patient Instructions Indication:Non-smoker Start:01-Jan-2020 Instruction Type:Provider Instructions for Treatment [facility] Work Phone: Instructions Note Date & Type Note Facility Instructions Name Patient Instructions Indication:BMI 25.0-25.9,adult Start:02-Dec-2022 Instruction Type:Provider Instructions for Treatment How to Access Health Information Online using Patient Portal and [employer] Apps Indication:BMI 25.0-25.9,adult Start:02-Dec-2022 Instruction Type:Patient Education Patient Instructions Indication:BMI 24.0-24.9, adult Start:29-Dec-2021 Instruction Type:Provider Instructions for Treatment How to Access Health Information Online using Patient Portal and [employer] Apps Indication:BMI 24.0-24.9, adult Start:29-Dec-2021 Instruction Type:Patient Education Patient Instructions Indication:Non-smoker Start: Instruction Type:Provider Instructions for Treatment How to Access Health Information Online using Patient Portal and [employer] Apps Indication:Non-smoker Start: Instruction Type:Patient Education How to access health information online Indication:Non-smoker Start: 0 Instruction Type:Patient Education How to access health information online - Detail Indication:Non-smoker Start: 0 Instruction Type:Patient Education Patient Instructions Indication:Non-smoker Start: 0 Instruction Type:Provider Instructions for Treatment How to access health information online Indication:Non-smoker Start:01-Jan-2020 Instruction Type:Patient Education How to access health information online - Detail Indication:Non-smoker Start:01-Jan-2020 Instruction Type:Patient Education Patient Instructions Indication:Non-smoker Start:01-Jan-2020 Instruction Type:Provider Instructions for Treatment [facility] Work Phone: Instructions Note Date & Type Note Facility Instructions Name Patient Instructions Indication:Non-smoker Start: 3 Instruction Type:Provider Instructions for Treatment How to Access Health Information Online using Patient Portal and [employer] Apps Indication:Non-smoker Start: 3 Instruction Type:Patient Education Patient Instructions Indication:BMI 25.0-25.9,adult Start:02-Dec-2022 Instruction Type:Provider Instructions for Treatment How to Access Health Information Online using Patient Portal and [employer] Apps Indication:BMI 25.0-25.9,adult Start:02-Dec-2022 Instruction Type:Patient Education Patient Instructions Indication:BMI 24.0-24.9, adult Start:29-Dec-2021 Instruction Type:Provider Instructions for Treatment How to Access Health Information Online using Patient Portal and [employer] Apps Indication:BMI 24.0-24.9, adult Start:29-Dec-2021 Instruction Type:Patient Education Patient Instructions Indication:Non-smoker Start: 1 Instruction Type:Provider Instructions for Treatment How to Access Health Information Online using Patient Portal and [employer] Apps Indication:Non-smoker Start: 1 Instruction Type:Patient Education How to access health information online Indication:Non-smoker Start: 0 Instruction Type:Patient Education How to access health information online - Detail Indication:Non-smoker Start: 0 Instruction Type:Patient Education Patient Instructions Indication:Non-smoker Start: 0 Instruction Type:Provider Instructions for Treatment How to access health information online Indication:Non-smoker Start:01-Jan-2020 Instruction Type:Patient Education How to access health information online - Detail Indication:Non-smoker Start:01-Jan-2020 Instruction Type:Patient Education Patient Instructions Indication:Non-smoker Start:01-Jan-2020 Instruction Type:Provider Instructions for Treatment [facility] Work Phone: Instructions Note Date & Type Note Facility Instructions Name Patient Instructions Indication:BMI 25.0-25.9,adult Start: 3 Instruction Type:Provider Instructions for Treatment How to Access Health Information Online using Patient Portal and [employer] Apps Indication:BMI 25.0-25.9,adult Start: 3 Instruction Type:Patient Education Patient Instructions Indication:Non-smoker Start: 3 Instruction Type:Provider Instructions for Treatment How to Access Health Information Online using Patient Portal and [employer] Apps Indication:Non-smoker Start: 3 Instruction Type:Patient Education Patient Instructions Indication:BMI 25.0-25.9,adult Start:02-Dec-2022 Instruction Type:Provider Instructions for Treatment How to Access Health Information Online using Patient Portal and [employer] Apps Indication:BMI 25.0-25.9,adult Start:02-Dec-2022 Instruction Type:Patient Education Patient Instructions Indication:BMI 24.0-24.9, adult Start:29-Dec-2021 Instruction Type:Provider Instructions for Treatment How to Access Health Information Online using Patient Portal and [employer] Apps Indication:BMI 24.0-24.9, adult Start:29-Dec-2021 Instruction Type:Patient Education Patient Instructions Indication:Non-smoker Start: 1 Instruction Type:Provider Instructions for Treatment How to Access Health Information Online using Patient Portal and [employer] Apps Indication:Non-smoker Start: 1 Instruction Type:Patient Education How to access health information online Indication:Non-smoker Start: 0 Instruction Type:Patient Education How to access health information online - Detail Indication:Non-smoker Start: 0 Instruction Type:Patient Education Patient Instructions Indication:Non-smoker Start: 0 Instruction Type:Provider Instructions for Treatment How to access health information online Indication:Non-smoker Start:01-Jan-2020 Instruction Type:Patient Education How to access health information online - Detail Indication:Non-smoker Start:01-Jan-2020 Instruction Type:Patient Education Patient Instructions Indication:Non-smoker Start:01-Jan-2020 Instruction Type:Provider Instructions for Treatment [facility] Work Phone: Instructions Name Dates Details How to access health informa tion online Indication:Non-smoker Start:14-May-2020 Instruction Type:Patient Education How to access health informa tion online - Detail Indication:Non-smoker Start:14-May-2020 Instruction Type:Patient Education Patient Instructions Indication:Non-smoker Start:14-May-2020 Instruction Type:Provider Instructions for Treatment How to access health informa tion online Indication:Non-smoker Start:01-Jan-2020 Instruction Type:Patient Education How to access health informa tion online - Detail Indication:Non-smoker Start:01-Jan-2020 Instruction Type:Patient Education Patient Instructions Indication:Non-smoker Start:01-Jan-2020 Instruction Type:Provider Instructions for Treatment Name Dates Details Patient Instructions Indication:Non-smoker Start:02-Jan-2021 Instruction Type:Provider Instructions for Treatment How to Access Health Informa tion Online using Patient Portal and [employer] Apps Indication:Non-smoker Start:02-Jan-2021 Instruction Type:Patient Education How to access health informa tion online Indication:Non-smoker Start:14-May-2020 Instruction Type:Patient Education How to access health informa tion online - Detail Indication:Non-smoker Start:14-May-2020 Instruction Type:Patient Education Patient Instructions Indication:Non-smoker Start:14-May-2020 Instruction Type:Provider Instructions for Treatment How to access health informa tion online Indication:Non-smoker Start:01-Jan-2020 Instruction Type:Patient Education How to access health informa tion online - Detail Indication:Non-smoker Start:01-Jan-2020 Instruction Type:Patient Education Patient Instructions Indication:Non-smoker Start:01-Jan-2020 Instruction Type:Provider Instructions for Treatment Advance Directives No Advanced Directives Records Found Name Dates Details Immunization Registry [place] - Effective on 01/01/2020. Expiration date unspecified Effective:01-Jan-2020 Name Dates Details Immunization Registry [place] - Effective on 01/01/2020. Expiration date unspecified Effective:01-Jan-2020 Name Dates Details Immunization Registry [place] - Effective on 01/01/2020. Expiration date unspecified Effective:01-Jan-2020 Name Dates Details Immunization Registry [place] - Effective on 01/01/2020. Expiration date unspecified Effective:01-Jan-2020 Name Dates Details Immunization Registry [place] - Effective on 01/01/2020. Expiration date unspecified Effective:01-Jan-2020 Name Dates Details Immunization Registry [place] - Effective on 01/01/2020. Expiration date unspecified Effective:01-Jan-2020 Name Dates Details Immunization Registry [place] - Effective on 01/01/2020. Expiration date unspecified Effective:01-Jan-2020 Name Dates Details Immunization Registry [place] - Effective on 01/01/2020. Expiration date unspecified Effective:01-Jan-2020 Summary Purpose Family History No Family History Records FoundNo Family History Records FoundNo Family History Records FoundNo Family History Records Found Additional Source Comments INFORMATION SOURCE (unrecogn ized section and content) DATE CREATED AUTHOR 09/18/2020 [facility] DATE CREATED AUTHOR AUTHOR'S ORGANIZ ATION 12/24/2021 [facility] DATE CREATED AUTHOR AUTHOR'S ORGANIZ ATION 12/10/2022 [facility] DATE CREATED AUTHOR AUTHOR'S ORGANIZ ATION 06/22/2024 [facility] FOR RECORDS PERTAINING TO PATIENTS WHO ARE OR HAVE BEEN ENROLLED IN A CHEMICAL DEPENDENCY/SUBSTANCEABUSE PROGRAM, SOME INFORMATION MAY BE OMITTED. This clinical summary was aggregated from multiple sources. Caution should be exercised in using it in the provision of clinical care. This summary normalizes information from multiple sources, and as a consequence, information in this document may materially change the coding, format and clinical context of patient data. In addition, data may be omitted in some cases. CLINICAL DECISIONS SHOULD BE BASED ON THE PRIMARY CLINICAL RECORDS. [facility] [employer], [facility]. provides no warranty or guarantee of the accuracy or completeness of information in this document.
[2024-08-15 11:14] LABS: Absolute Lymphocyte Count 1.84 X10^3/uL (0.83-4.51); Absolute Neutrophil Count 9.6 X10^3/uL (2.0-7.7); Basophil# 0.05 X10^3/uL; Basophil% 0.4 % (0-1); Eosinophil# 0.16 X10^3/uL; Eosinophils% 1.3 % (0-5); Hematocrit 36.2 % (37-47); Hemoglobin 12.3 g/dL (12.0-15.0); Lymphocyte # 1.84 X10^3/ul (0.83-4.51); Lymphocyte % 14.6 % (19-41); Mean Corpuscular Hgb 32.4 pg (27.0-32.0); Mean Corpuscular Volume 95.3 fL (81-99); Mean Platelet Vol. 9.9 fl (6.2-12.0); Monocyte# 0.78 X10^3/uL; Monocyte% 6.2 % (0-10); NRBC Flagged by Analyzer 0 % (0-5); Neutrophil % 76.4 % (47-70); Platelet Count 327 K/mm3 (150-450); RBC Distribution Width SD 44.8 fl (35.1-43.9); White Blood Count 12.6 K/mm3 (4.4-11.0)
[2024-08-15 11:47] LABS: Glucose Challenge Gest 1H 50g 97 mg/dL (70-140)
[2024-08-15 12:13] LABS: HIV - WCH Non-Reactive (Nonreactive); Syphilis Antibodies Non-reactive
== END | disposition home or self-care (01) ==
LOC: LAB 10:43
PROVIDERS: Advanced Practice Midwife; PCP Internal Medicine; Referring Provider Nurse Practitioner Women's Health; Visit Provider Nurse Practitioner Women's Health
DX: O09.812 Supervision of pregnancy resulting from assisted reproductive technology, second trimester (principal); O09.92 Supervision of high risk pregnancy, unspecified, second trimester; Z3A.00 Weeks of gestation of pregnancy not specified; Z13.1 Encounter for screening for diabetes mellitus
CPT/HCPCS: 36415; 82950; 85025; 86703; 86780

== ENCOUNTER → 2024-10-19 | Outpatient (CLI) | payer OTHER, SELFPAY | END | disposition home or self-care (01) | LOC: LABSPEC 11:17 | PROVIDERS: PCP Internal Medicine; Referring Provider Advanced Practice Midwife; Visit Provider Advanced Practice Midwife | DX: O09.92 Supervision of high risk pregnancy, unspecified, second trimester (principal); Z3A.00 Weeks of gestation of pregnancy not specified | CPT/HCPCS: 87081 ==

== ENCOUNTER → 2024-10-26 | Outpatient (CLI) | payer OTHER, SELFPAY ==
--- NOTE | 2024-10-26 12:43 | US_ITS ---
INDICATION: growth COMPARISON: 09/29/2022 OB ultrasound. FINDINGS: 52 grayscale ultrasound images demonstrate single live intrauterine in cephalic presentation measuring at 35 weeks +2 days average ultrasound age. Estimated weight 2910 g, 38th percentile. heart rate 140 bpm. Adequate amniotic fluid volume of multiple large pockets visualized, TALA 10 cm, deepest vertical pocket 4.8 cm. Suggestion of possible succenturiate lobe of the placenta. Anterior placenta is otherwise unremarkable for gestational age. Uterine myometrium is unremarkable. Bilateral ovaries are not visualized. No significant free fluid. US/OB Limited With Biometrics IMPRESSION: Single live intrauterine in cephalic presentation measuring at 35 weeks +2 days average ultrasound age. Estimated weight 2910 g, 38th percentile. Suggestion of possible succenturiate lobe of the placenta. Anterior placenta is otherwise unremarkable for gestational age. Electronically Signed: Tanner Baldwin MD at 0:45 EST ,
== END | disposition home or self-care (01) ==
LOC: US 12:42
PROVIDERS: PCP Internal Medicine; Referring Provider Advanced Practice Midwife; Visit Provider Advanced Practice Midwife
DX: O09.812 Supervision of pregnancy resulting from assisted reproductive technology, second trimester (principal); Z3A.00 Weeks of gestation of pregnancy not specified
CPT/HCPCS: 76816

== ENCOUNTER 2024-11-10 19:02 | Inpatient (IN) | payer OTHER, SELFPAY ==
[2024-11-10 19:24] VITALS: BP 123/75; PULSE 63; RESP 16; TEMP 36.8; O2SAT 95
[2024-11-10 19:28] VITALS: BMI 27.1
[2024-11-10] MEDS: Lactated Ringers 1,000 ML 50 ML IV (19:35)
[2024-11-10 19:55] LABS: Absolute Lymphocyte Count 2.16 X10^3/uL (0.83-4.51); Absolute Neutrophil Count 5.1 X10^3/uL (2.0-7.7); Basophil# 0.03 X10^3/uL; Basophil% 0.4 % (0-1); Eosinophil# 0.07 X10^3/uL; Eosinophils% 0.8 % (0-5); Hemoglobin 12.7 g/dL (12.0-15.0); Lymphocyte # 2.16 X10^3/ul (0.83-4.51); Mean Corp Hgb Conc 34.3 g/dL (32-36); Mean Corpuscular Hgb 32.1 pg (27.0-32.0); Mean Corpuscular Volume 93.4 fL (81-99); Monocyte% 10.8 % (0-10); NRBC Flagged by Analyzer 0 % (0-5); Neutrophil # 5.11 X10^3/uL (2.7-7.7); Neutrophil % 61.6 % (47-70); Platelet Count 257 K/mm3 (150-450); RBC Distribution Width CV 11.9 % (11.6-14.6); RBC Distribution Width SD 40.8 fl (35.1-43.9); Red Blood Count 3.96 M/mm3 (4.2-5.4); White Blood Count 8.3 K/mm3 (4.4-11.0)
[2024-11-10] MEDS: miSOPROStol 25 MCG TABLET PO (20:04)
[2024-11-10 20:29] VITALS: BP 122/73; PULSE 66; RESP 16; TEMP 36.9
[2024-11-10 20:39] LABS: Syphilis Antibodies Non-reactive
--- NOTE | 2024-11-10 21:39 | HP.PCM.OB_ITS ---
HPI - General General Date of Admission: 11/10/24 HPI Narrative SUNSHINE TRAN, is a 34 y/o @ 39 weeks 2 days who presents to L&D for induction of labor due to IVF and recommendation for delivery at 39 weeks. She denies loss of fluid, vaginal bleeding, or dec fm. Maternal Data Information MARKIE Calculator Estimated Delivery Date Method Current WG Current Estimate 11/16/24 Manual 39w 2d PFSH PFSH Medical History (Updated 11/10/24 @ 20:06 by Maya Campos) Infertility Seasonal allergies Lab test positive for detection of COVID-19 virus Kidney stones, calcium oxalate Home Medications ?Medication ?Instructions ?Recorded ?Last Taken ?Type polyethylene glycol 3350 17 4 g PO DAILY 12/02/23 Unknown History gram/dose oral powder (Miralax) multivitamin no.47-iron fum 27 1 cap PO see provid 04/07/24 11/09/24 19:49 History mg-folate no.1 1 mg-dha 300 mg capsule (PNV-DHA) progesterone 50 mg/mL 75 mg IM DAILY see doc 04/07/24 Unknown History intramuscular oil ondansetron 4 mg disintegrating 4 mg PO Q8H PRN nausea and 04/19/24 Unknown Rx tablet vomiting #30 tabs Allergy/AdvReac Type Severity Reaction Status Date / Time No Known Allergies Allergy Verified 11/10/24 19:49 Surgical History History of tonsillectomy Social History adopted: No household members: spouse and children number of children: 2 current occupational status: employed current occupation: [employer] pets and animals: Yes pets and animals: dog(s) history of recent travel: Yes ([place]) out of state: Yes out of country: No sexually active: Yes Smoking Status: Never smoker alcohol intake: never substance use type: does not use well-balanced diet: daily or most days caffeine: No eating out: 1-3 times/week during the past year weight has: decreased > 10 lbs what type of physical activity do you participate in: none adi/anabaptism: Denominational seatbelt use: always do you feel safe at home: Yes additional social history: Adrian- Ar[employer] 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 Date Name GA/Weeks Outcome Route Bth Weight Gen Labor Lgth Anesthesia Del Locatn Provider FOB Unknown 2017 Ender live - full term Female [facility] 10/20/22 Teresa 39 live - full term Female [facility] Dr. Hendrix Delivery Date: 10/20/22 Last Updated by: Colette Ling IOL, IVF, atony uterus Visit Details Expected Delivery Route/Plan Labor Preferences- CB/BF classes: no labor support person: Adrian labor intervention preferences: [] pain management options preferred:epidural cut cord/dad catch: cord : bottle PP control planned: discussed discussed possible routes of delivery and associated risks: [] special requests: [] Plans Covid status: [] Flu vaccine: declines Tdap vaccine: given Rhogam: na LARC form signed: yes movement and labor precautions reviewed. Problem list reviewed and updated with the most current plan of care details and appropriate orders placed. Relevant counseling for the gestational age provided. Continue routine care and follow up unless otherwise noted in visit notes/problem list details OB Flowsheet Initial Weight: Not Recorded Date -?-?-?-?-?-?-?-?-?-?-?-?- EGA Weight BP Urine Prot -?-?-?-?-?-?-?-?-?-?-?-?- Glucose FHR FuHt Pres Dilation -?-?-?-?-?-?-?-?-?-?-?-?- Effaced St Visit Note 04/19/24 -?-?-?-?-?-?-?-?-?-?-?-?- 9w 6d 136 lb 4 oz 119/73 -?-?-?-?-?-?-?-?-?-?-?-?- 164 -?-?-?-?-?-?-?--?-?-?-?-?- JV- CRL consiste nt with IVF transfer date. embryos were tested so does not need NIPT. gender is a surprise. 05/22/24 -?-?-?-?-?-?-?-?-?-?-?-?- 14w 4d 139 lb 2 oz 112/73 Nega tive -?-?-?-?-?-?-?-?-?-?-?-?- Negative 151 -?-?-?-?-?-?-?-?-?-?-?-?- JV- no complaint s today. anatomy with MFM ordered. 06/19/24 -?-?-?-?-?-?-?-?-?-?-?-?- 18w 4d 142 lb 8 oz 108/64 Nega tive -?-?-?-?-?-?-?-?-?-?-?-?- Negative 148 20 -?-?-?-?-?-?-?-?-?-?-?-?- -No VB. Brett king. MFM US tomorrow. echo ordered. Will get PN labs today. 07/20/24 -?-?-?-?-?-?-?-?-?-?-?-?- 23w 0d 146 lb 6 oz 106/68 Nega tive -?-?-?-?-?-?-?-?-?-?-?-?- Negative 149 24 -?-?-?-?-?-?-?-?-?-?-?-?- NC-No VB, LOF. G ood FM. Had echo today and told heart ok but something with kidney and will have recheck in 4 wk 08/15/24 -?-?-?-?-?-?-?-?-?-?-?-?- 26w 5d 153 lb 110/72 Negative -?-?-?-?-?-?-?-?-?-?-?-?- Negative 147 26 -?-?-?-?-?-?-?-?-?-?-?-?- MH-No VB, LOF. G ood FM. No concerns 08/31/24 -?-?-?-?-?-?-?-?-?-?-?-?- 29w 0d 152 lb 113/69 Negative -?-?-?-?-?-?-?-?-?-?-?-?- Negative 140 29 -?-?-?-?-?-?-?-?-?-?-?-?- SM- no vb lof go od fm n oregular ctx discussed nsts 09/14/24 -?-?-?-?-?-?-?-?-?-?-?-?- 31w 0d 153 lb 4 oz 104/67 Nega tive -?-?-?-?-?-?-?-?-?-?-?-?- Negative 145 30 -?-?-?-?-?-?-?-?-?-?-?-?- JV- no lof, vagi nal bleeding, or dec fm. has follow up growth wednesday after . 09/28/24 -?-?-?-?-?-?-?-?-?-?-?-?- 33w 0d 156 lb 111/71 Negative -?-?-?-?-?-?-?-?-?-?-?-?- Negative 160 32 -?-?-?-?-?-?-?-?-?-?-?-?- KW- no vb/lof/ct x. good fm. last US reviewed. 36 week growth ordered. 10/12/24 -?-?-?-?-?-?-?-?-?-?-?-?- 35w 0d 153 lb 2 oz 115/75 Nega tive -?-?-?-?-?-?-?-?-?-?-?-?- Negative 148 35 -?-?-?-?-?-?-?-?-?-?-?-?- JV- no lof, vagi nal bleeding, or dec fm. plan for nst weekly starting next week, office fluid and position us next week. 10/19/24 -?-?-?-?-?-?-?-?-?-?-?-?- 36w 0d 156 lb 126/72 -?-?-?-?-?-?-?-?-?-?-?-?- 140 36 -?-?-?-?-?-?-?-?-?-?-?-?- KW- no vb/lof/ct x. good fm. NST reactive. SM unable to do US today formal US ordered. 10/26/24 -?-?-?-?-?-?-?-?-?-?-?-?- 37w 0d 156 lb 2 oz 113/66 Trac e -?-?-?-?-?-?-?-?-?-?-?-?- Negative 130 36 Cephalic -?-?-?-?-?-?-?-?-?-?-?-?- JV- no lof, vagi nal bleeding, or dec fm. nst reactivce. plan 39 week IOL. was closed last week. will recheck next week. 11/02/24 -?-?-?-?-?-?-?-?-?-?-?-?- 38w 0d 157 lb 4 oz 121/78 Nega tive -?-?-?-?-?-?-?-?-?-?-?-?- Negative 140 38 Cephalic 1 -?-?-?-?-?-?-?-?-?-?-?-?- 70 -2 JV- nst re active. no lof, vaginal bleeding, or dec fm. ROS Constitutional Constitutional: Denies change in weight, fatigue, fever(s), headache(s), poor appetite or weakness Eyes Eyes: Denies blurry vision, change in vision, seeing flashes or spots in vision ENT HEENT: Denies dizziness, headache(s), loss taste/smell or sore throat Cardiovascular Cardiovascular: Denies chest pain, dizziness, dyspnea, irregular heart rhythm, leg edema, palpitations, rapid heart rate or vomiting Respiratory/Chest Respiratory/Chest: Denies chest tightness, cough, dyspnea or breast pain Gastrointestinal Gastrointestinal: Denies abdominal pain, anorexia, constipation, cramping, diarrhea, hemorrhoids, vomiting or weight changes Genitourinary Genitourinary: Denies dysuria, flank pain, genital lesions, genital pain, urinary frequency or urinary urgency Musculoskeletal Musculoskeletal: Denies back pain, difficulty walking, joint pain, limited range of motion, muscle cramps or numbness Integumentary Integumentary: Denies lesions or unusual bruising Neurologic Neurologic: Denies abnormal movements, abnormal speech, dizziness, numbness, seizure-like activity or syncope Psychiatric Psychiatric: Denies anxiety, behavioral changes, change in appetite, change in libido, cognitive impairment, confusion, depression, difficulty concentrating, hallucinations or suicidal thoughts Endocrine Endocrinology: Denies excessive sweating, polydipsia or polyuria Hematologic/Lymphatic Hematologic/Lymphatic: Denies easy bleeding, easy bruising or lymphadenopathy Allergic/Immunologic Allergic/Immunologic: Denies itchy eyes, lip swelling, seasonal rhinorrhea, rhinitis, throat swelling, tongue swelling, eczemia, wheezing or asthma Vital Signs Vital Signs Vital Signs: 11/10/24 19:24 11/10/24 19:24 11/10/24 19:24 Temperature Temperature Source Temporal Pulse Rate 63 Respiratory Rate Blood Pressure 123/75 H BP Systolic 123 BP Diastolic 75 Pulse Ox 11/10/24 19:24 11/10/24 19:24 11/10/24 19:24 Temperature 98.3 F Temperature Source Pulse Rate Respiratory Rate 16 Blood Pressure BP Systolic BP Diastolic Pulse Ox 95 11/10/24 20:29 11/10/24 20:29 11/10/24 20:29 Temperature Temperature Source Temporal Pulse Rate 66 Respiratory Rate Blood Pressure 122/73 H BP Systolic 122 BP Diastolic 73 Pulse Ox 11/10/24 20:29 11/10/24 20:29 11/10/24 23:51 Temperature 98.4 F Temperature Source Pulse Rate Respiratory Rate 16 Blood Pressure 127/78 H BP Systolic 127 BP Diastolic 78 Pulse Ox 11/10/24 23:51 11/10/24 23:51 11/10/24 23:51 Temperature Temperature Source Temporal Pulse Rate 59 L Respiratory Rate 16 Blood Pressure BP Systolic BP Diastolic Pulse Ox 11/10/24 23:51 11/10/24 23:51 11/11/24 01:15 Temperature 98.1 F Temperature Source Temporal Pulse Rate Respiratory Rate Blood Pressure BP Systolic BP Diastolic Pulse Ox 98 11/11/24 01:15 11/11/24 01:15 11/11/24 01:15 Temperature Temperature Source Pulse Rate 59 L Respiratory Rate 16 Blood Pressure 120/82 H BP Systolic 120 BP Diastolic 82 Pulse Ox 11/11/24 01:15 11/11/24 03:48 11/11/24 03:48 Temperature 97.4 F L Temperature Source Pulse Rate 66 Respiratory Rate Blood Pressure BP Systolic BP Diastolic Pulse Ox 97 11/11/24 03:48 11/11/24 03:48 11/11/24 03:48 Temperature 97.8 F Temperature Source Temporal Pulse Rate Respiratory Rate 16 Blood Pressure BP Systolic BP Diastolic Pulse Ox 11/11/24 03:49 11/11/24 03:49 Temperature Temperature Source Pulse Rate 68 Respiratory Rate Blood Pressure 136/76 H BP Systolic 136 BP Diastolic 76 Pulse Ox Weight Weight: 158 lb Body Mass Index (BMI) 27.1 Physical Exam Const alert, oriented x3, no apparent distress and healthy appearing General Appearance: cooperative; Negative for anxious HEENT normocephalic Face and Sinus: normal facial exam Eyes EOMs intact bilaterally and no scleral icterus General Eye: normal appearance of both eyes Neck full ROM and supple Lymph Lymphatic: no lymphadenopathy noted Chest Chest: abnormal inspection of the chest Resp normal respiratory effort Effort and Inspection: able to speak in complete sentences Cardio regular rate GI soft to palpation and non-tender Inspection: gravid Palpation: soft; Negative for tender external exam normal Back/Spine no CVA tenderness Extremity normal to inspection, full ROM and no clubbing, cyanosis or edema General Extremity: Negative for calf tenderness or edema Skin Lesions: no lesions Rashes: no rashes Psych mental status grossly normal Labs Labs Labs: Blood Type A POSITIVE Antibody Screen NEGATIVE Hct 37.0 % (37-47) Hgb 12.7 g/dL (12.0-15.0) Pap Smear Negative Obstetrics Ultrasound Syphilis Total Ab Non-reactive Rubella IgG Antibody Reactive (Nonreactive) Hep Bs Antigen Non-Reactive (Nonreactive) Hepatitis C Antibody Non-Reactive (Nonreactive) Chlamydia DNA (ZACK) Negative (Negative) N.gonorrhoeae DNA (ZACK) Negative (Negative) HIV 1&2 Antibody Non-Reactive (Nonreactive) Glucose 1 Hr 50 gm 97 mg/dL (70-140) Miscellaneous Test COMMENT Assessment & Plan (1) Supervision of high-risk : QUALIFIERS: Trimester: second trimester Qualified Code(s): O09.92 - Supervision of high risk , unspecified, second trimester COMMENT: [id number], MARKIE 11/16/24, Teresa June Adrian (2) conceived through in vitro fertilization: QUALIFIERS: Trimester: second trimester Qualified Code(s): O09.812 - Supervision of resulting from assisted reproductive technology, second trimester COMMENT: growth 38% at 36 weeks echo 22-24 wk:done 07/20 and per patient normal heart but something on kidneys and has recheck w/MFM 4 wks. Awaiting report. (3) : QUALIFIERS: Weeks of gestation: 38 weeks Qualified Code(s): Z3A.38 - 38 weeks gestation of COMMENT: GBS neg, nl anatomy, declines genetic & carrier testing. PLAN: Plan Patient presents IOL, plan management for with cytotec tonight (11/10/24) then pitocin/AROM. Pain management: plans epidural. GBS negative. Management of any complications: none I have reviewed the [facility] and made any clinically relevant updates.
[2024-11-10 23:51] VITALS: BP 127/78; PULSE 59; RESP 16; TEMP 36.7; O2SAT 98
[2024-11-11] VITALS (48 sets, daily range): BP systolic 114–152; BP diastolic 66–93; PULSE 59–88; RESP 16–20; TEMP 35.9–37.1; O2SAT 92–100
[2024-11-11] MEDS: miSOPROStol 25 MCG TABLET PO
[2024-11-11] MEDS: Lactated Ringers 1,000 ML 999 ML IV (04:26)
[2024-11-11] MEDS: fentaNYL-bupivacaine (epidural) 100 ML BAG EPIDURAL (04:56)
[2024-11-11] MEDS: Oxytocin 10 UNITS/ML Vial IM (07:58)
[2024-11-11] MEDS: Oxytocin 15 Units/NS 250ml 15 UNITS/250 ML IV.SOLN 83 UNITS IV (08:00)
--- NOTE | 2024-11-11 08:16 | OB.VAGDELI_ITS ---
Assessment & Plan (1) Supervision of high-risk : QUALIFIERS: Trimester: second trimester Qualified Code(s): O09.92 - Supervision of high risk , unspecified, second trimester COMMENT: [id number], MARKIE 11/16/24, Teresa June Adrian (2) conceived through in vitro fertilization: QUALIFIERS: Trimester: second trimester Qualified Code(s): O09.812 - Supervision of resulting from assisted reproductive technology, second trimester COMMENT: growth 38% at 36 weeks echo 22-24 wk:done 07/20 and per patient normal heart but something on kidneys and has recheck w/MFM 4 wks. Awaiting report. (3) : QUALIFIERS: Weeks of gestation: 38 weeks Qualified Code(s): Z3A.38 - 38 weeks gestation of COMMENT: GBS neg, nl anatomy, declines genetic & carrier testing. Maternal Data Information MARKIE Calculator Estimated Delivery Date Method Current WG Current Estimate 11/16/24 Manual 39w 2d Final MARKIE: 11/16/24 Gestational age: 39 weeks 2 days Vaginal Delivery Maternal Presentation Maternal Presentation: Medically Indicated Induction Maternal Presentation: IVF Type of Induction: Cytotec Vaginal Delivery Information Procedure Performed: Spontaneous Vaginal Delivery Date of Procedure: 11/11/24 Pre-Procedure Diagnosis: 34 y/o G 3p2 @ 39 weeks 2 days, IVF Post-Procedure Diagnosis: 34 y/o G 3p2 @ 39 weeks 2 days, IVF Type of anesthesia: Epidural Estimated Blood Loss: 50ccc Time of Delivery: 07:51 Findings Description of procedure: Patient began pushing and delivered the head in the PANKAJ presentation. The head was delivered atraumatically.. The anterior and posterior shoulders delivered without complication followed by the rest of the and the was placed on the maternal abdomen. Delayed cord clamping was employed for approximately 60 seconds. Cord was clamped and cut and gentle traction was applied to the cord and the placenta delivered spontaneously immediately following it was noted to be intact with three-vessel cord. The perineum and vagina were inspected and noted to have no laceration. EBL was 50cc. Patient and tolerated delivery well. 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
--- NOTE | 2024-11-11 08:21 | DCINST_ITS ---
Discharge Instructions Diet Discharge Diet: No restrictions DC O2, CPAP, BIPAP needs Home O2 Discharge instructions: No Dressing / Incision Discharge Activity: Return to Normal Activity, May Not Drive (while taking narcotic pain medications.) and May Shower May resume sexual activity in: 4-6 weeks Dressing / Incision Call your doctor if your incision/area has: Continuous Slow Oozing, Sudden Increased Bleeding, Increased Pain/ Swelling, Increased Redness and Foul Smelling Discharge Follow Up Care Please Follow Up With: Noemi Rowan DO When: Call [phone] to make an appointment with your doctor in 6 weeks. If you had elevated blood pressure or 4th degree laceration, you will need to be seen in 2 weeks. Test Results: Test results from this visit will be discussed in further detail at your follow- up appointment, if applicable. Discharge Plan Admission Admit Date/Time: 11/10/24 19:02 Attending Provider: Noemi Rowan Primary Care Provider: Angelica Sharpe Discharge Orders/Prescriptions Prescriptions: No Action polyethylene glycol 3350 [Miralax] 17 gram/dose powder 4 g PO DAILY PNV-DHA 27 mg iron-1 mg -300 mg capsule 1 cap PO progesterone 50 mg/mL oil 75 mg IM DAILY ondansetron 4 mg tablet,disintegrating 4 mg PO Q8H PRN (Reason: nausea and vomiting) Qty: 30 4RF Referrals / Follow Up: Angelica Sharpe DO [Primary Care Provider] -
[2024-11-11] MEDS: Methylergonovine 0.2 MG/ML Ampul IM (08:49)
[2024-11-11] MEDS: Ibuprofen 600 MG Tablet PO (10:21)
[2024-11-12] VITALS (7 sets, daily range): BP systolic 118–127; BP diastolic 62–72; PULSE 57–69; RESP 16; TEMP 36.2–36.6; O2SAT 96–98
[2024-11-12] MEDS: Ibuprofen 600 MG Tablet PO (00:29)
--- NOTE | 2024-11-12 10:17 | PCM.PN.OB ---
Subjective Subjective Patient doing well without complaints. Tolerating PO. Ambulating and voiding without difficulty. Feeding well. Denies chest pain, shortness of breath, calf pain/swelling, fevers, chills, lightheadedness. Objective Data Objective Data Vital Signs: Vital Signs Temp Pulse Resp BP Pulse Ox O2 Del Method 98 F 69 16 127/72 H 96 Room Air 11/12/24 08:20 11/12/24 08:24 11/12/24 08:20 11/12/24 08:24 11/12/24 04:00 11/12/24 04:00 Oxygen Delivery Method Room Air Weight: 158 lb Body Mass Index (BMI) 27.1 Intake & Output: Intake and Output for Last 24 Hours 11/10/24 11/11/24 11/12/24 23:59 23:59 23:59 Intake Total 2730.00 / 2730.00 Output Total 853 / 853 Balance 1877.00 / 1877.00 Lab / Micro Data 11/10/24 19:35 ROS Constitutional Constitutional: Denies chills, fatigue, fever(s), poor appetite or weakness Eyes Eyes: Denies blurry vision, change in vision, seeing flashes or spots in vision ENT HEENT: Denies dizziness, headache(s), loss taste/smell or sore throat Cardiovascular Cardiovascular: Denies chest pain, dizziness, dyspnea, irregular heart rhythm, palpitations or rapid heart rate Respiratory/Chest Respiratory/Chest: Denies chest tightness, cough, dyspnea or breast pain Gastrointestinal Gastrointestinal: Denies abdominal pain, constipation or vomiting Genitourinary Genitourinary: Denies dysuria or flank pain Musculoskeletal Musculoskeletal: Denies difficulty walking, joint pain, limited range of motion or numbness Neurologic Neurologic: Denies abnormal movements, abnormal speech, dizziness, numbness, seizure-like activity or syncope Psychiatric Psychiatric: Denies anxiety, behavioral changes, change in appetite, confusion, depression or suicidal thoughts Physical Exam Const alert, oriented x3 and no apparent distress General Appearance: cooperative and comfortable Resp normal respiratory effort Cardio regular rate GI normal to inspection, nondistended, normoactive bowel sounds GI Narrative: uterus is firm below umbilicus Palpation: soft Back/Spine no CVA tenderness and thoraco-lumbar ROM normal Extremity normal to inspection, no clubbing, cyanosis or edema, no calf tenderness and no pedal edema Psych mental status grossly normal, thought process normal, cooperative, affect normal, speech normal, activity/motor behavior normal, denies homicidal ideation and denies suicidal ideation Assessment & Plan (1) Vaginal delivery: COMMENT: TUSHAR- 11/11/24 PLAN: Plan s/p PPD # 1 1. routine post delivery care 2. breast feeding- support given 3. rh positive 4. rubella immune 5. desires discharge to home today
== END 2024-11-12 11:20 | disposition home or self-care (01) | DRG 807 ==
PROVIDERS: Admitting Provider Obstetrics & Gynecology; PCP Internal Medicine; Referring Provider Obstetrics & Gynecology; Visit Provider Obstetrics & Gynecology
DX: O99.892 Other specified diseases and conditions complicating childbirth (principal); Z37.0 Single live birth; N97.9 Female infertility, unspecified; Z3A.39 39 weeks gestation of pregnancy
CPT/HCPCS: 59025; 59050; 85025; 86780; 86850; 86900; 86901; 99221; G0378

== ENCOUNTER 2025-10-12 12:10 | Emergency (ER) | payer OTHER, SELFPAY ==
[2025-10-12 12:10] VITALS: BP 133/85; PULSE 66; RESP 18; TEMP 36.2; O2SAT 100; BMI 24.5
--- NOTE | 2025-10-12 12:48 | ED.VIS.GI ---
HPI HPI - GI History of Present Illness Chief Complaint: Abd Pain Informant: patient Abdominal Pain/Flank Pain Onset: Today Context: Gradual Onset Timing: Continuous Quality: Aching, Cramping and Dull Location: Diffuse, RUQ and RLQ Worsened by: Nothing Relieved by: Nothing Nausea/Vomiting/Emesis GI Symptom: Positive for Nausea; Negative for Vomiting Onset: Today Diarrhea/Melena/Hematochezia GI Symptom: Negative for Diarrhea, Melena or Hematochezia Associated Symptoms Associated Symptoms: Positive for Frequency; Negative for Dysuria or Hematuria LMP: 09/19/2025 Narrative Narrative: Patient presents with abdominal pain that began this morning. Patient describes it as a dull ache. Patient states it also feels like it is cramping. Patient states it began diffusely. Patient states it is now getting worse over the right lower abdomen. Patient admits to some nausea but denies any vomiting. Patient admits to decreased appetite. Patient denies any diarrhea, melena, or hematochezia. Patient admits to some urinary frequency but denies any dysuria or hematuria. Patient states her last menstrual period was 09/19/2025. Patient states she did have some water on the way to the emergency department. Patient states she ate eggs around 8 AM. Patient states she drank a few sips from a smoothie around 11 AM. [facility] Medical History Infertility Seasonal allergies Lab test positive for detection of COVID-19 virus Kidney stones, calcium oxalate Home Medications ?Medication ?Instructions ?Recorded ?Last Taken ?Type polyethylene glycol 3350 17 4 g PO DAILY 12/02/23 Unknown History gram/dose oral powder (Miralax) multivitamin no.47-iron fum 27 1 cap PO see provid 04/07/24 11/09/24 19:49 History mg-folate no.1 1 mg-dha 300 mg capsule (PNV-DHA) hydrocodone-acetaminophen 5-325mg 1 tab PO Q6H PRN PRN Pain 3 days 10/12/25 Unknown Rx 5mg-325mg #10 TABLETS Allergy/AdvReac Type Severity Reaction Status Date / Time No Known Allergies Allergy Verified 10/12/25 12:10 Surgical History History of tonsillectomy Social History adopted: No household members: spouse and children number of children: 2 current occupational status: employed current occupation: [employer] pets and animals: Yes pets and animals: dog(s) history of recent travel: Yes ([place]) out of state: Yes out of country: No sexually active: Yes Smoking Status: Never smoker alcohol intake: never substance use type: does not use well-balanced diet: daily or most days caffeine: No eating out: 1-3 times/week during the past year weight has: decreased > 10 lbs what type of physical activity do you participate in: none adi/mandaen: [employer] seatbelt use: always do you feel safe at home: Yes additional social history: [email or web address] 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 [facility] 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 ED Constitutional Constitutional ED: Denies chills or fever(s) Eyes Eyes: Denies blurry vision or change in vision ENT ENT ED: Denies rhinorrhea or sore throat Cardiovascular Cardiovascular: Denies chest pain or palpitations Respiratory/Chest Respiratory/Chest: Denies cough or dyspnea Gastrointestinal Gastrointestinal: Reports abdominal pain and nausea; Denies diarrhea, melena or vomiting Genitourinary Genitourinary ED: Reports urinary frequency; Denies dysuria or hematuria Musculoskeletal Musculoskeletal: Denies back pain or neck pain Integumentary Denies abscess or rash Neurologic Neurologic: Denies headache(s) or weakness Allergic/Immunologic Allergic/Immunologic ED: Denies mouth swelling or urticaria EXAM Physical Exam Const Vital Signs: 10/12/25 12:10 10/12/25 14:09 Temperature 97.1 F L Temperature Source Temporal Pulse Rate 66 70 Respiratory Rate 18 14 Blood Pressure 133/85 H 128/74 H Blood Pressure Mean 101 92 Pulse Ox 100 99 Oxygen Delivery Method Room Air Room Air Positive well nourished and well developed General Appearance ED: well developed and NAD HEENT Reports moist mucous membranes Neck supple and no JVD Resp normal respiratory effort and clear to auscultation bilaterally Cardio regular rate and regular rhythm GI non-distended Palpation: soft and tender RLQ (Mild); Negative for guarding or rebound tenderness present Neuro CN's II-XII intact bilaterally, moves all extremities and no sensory deficits noted Sensorium / Orientation: alert Motor Exam: strength 5/5 throughout Psych mental status grossly normal MDM MDM MDM Narrative Medical decision making narrative: Differential diagnosis includes appendicitis, gastroenteritis, urinary tract infection, ovarian cyst, ectopic , electrolyte abnormality, dehydration, and diverticulitis. CBC will be obtained to assess for leukocytosis and anemia. Comprehensive metabolic profile will be obtained to assess for hepatic function, renal function, and electrolyte abnormality. Lipase will be obtained to assess for pancreatitis. Serum hCG will be obtained to assess for . Urinalysis will be obtained to assess for urinary tract infection and hematuria. History & Record Review Additional record(s) reviewed:: Prior inpatient record, Prior outpatient record and Prior labs Lab Data Attestation: I reviewed the patient's lab results. Lab results narrative: CBC was reviewed and was within normal limits. Comprehensive metabolic profile was reviewed and was within normal limits. Lipase was reviewed and was normal at 50. Serum hCG was reviewed and was negative. Urinalysis was reviewed. Occult blood was 250 with greater than 100 red blood cells. There is 1+ bacteria. Leukocyte esterase was negative. There are 0-5 white blood cells. Labs: Laboratory Results - last 24 hr 10/12/25 10/12/25 12:37 13:12 WBC 9.4 RBC 4.16 L Hgb 13.2 Hct 38.4 MCV 92.3 MCH 31.7 MCHC 34.4 RDW Std Deviation 38.6 RDW Coeff of [place] 11.5 L Plt Count 336 MPV 10.3 Immature Gran % (Auto) 0.200 Neut % (Auto) 77.2 H Lymph % (Auto) 15.5 L [place] % (Auto) 5.7 Eos % (Auto) 0.8 Baso % (Auto) 0.6 Absolute Neuts (auto) 7.3 Absolute Lymphs (auto) 1.46 Nucleated RBC % 0 Sodium 136 Potassium 4.3 Chloride 100 Carbon Dioxide 25.5 Anion Gap 10 BUN 18 Creatinine 0.69 L Estim Creat Clear Calc 98.27 Est GFR (MDRD) Non-Af 116 BUN/Creatinine Ratio 25.5 H Glucose 96 Calcium 9.6 Total Bilirubin 0.51 AST 21 ALT 15 Alkaline Phosphatase 64 Total Protein 7.5 Albumin 4.5 Globulin 3.0 Albumin/Globulin Ratio 1.5 Lipase 50 Serum , Qual NEGATIVE Urine Color Yellow Urine Clarity Cloudy Urine pH 6.0 Ur Specific Media 1.020 Urine Protein 30 H Urine Glucose (UA) Normal Urine Ketones Negative Urine Occult Blood 250 H Urine Nitrite Negative Urine Bilirubin Negative Urine Urobilinogen Normal Ur Leukocyte Esterase Negative Urine RBC > 100 SEEN Urine WBC 0-5 SEEN Ur Squamous Epith Cells 0-5 SEEN Urine Bacteria 1+ Urine Mucus 0 SEEN Radiography Diagnostic Testing: Clinical Impression(s) from Imaging Studies Abdomen/Pelvis CT 10/12/25 13:45 IMPRESSION: 5.7 mm calculus in the right renal pelvis causing a minimal degree of right hydronephrosis. Reading Location: [id number] CT scan of the abdomen and pelvis was obtained. There is a 5.7 mm calculus in the right renal pelvis causing minimal right hydronephrosis. There is no evidence of appendicitis. There is no evidence of cholecystitis. This was interpreted by the radiologist. I also independently reviewed the images and noted the renal calculus at the right ureteropelvic junction. Treatment and Re-Evaluation :: Patient was given IV fluids, morphine, and Zofran. Patient was feeling better on reevaluation. Patient was advised of her findings. Patient was given a prescription for Pierce. Patient was instructed to drink plenty of fluids. Patient was instructed to follow-up with her primary care physician in 5 to 7 days. Patient was also given a referral for urology. Patient was instructed to return if worse in any way. Patient understood and was agreeable with the plan. All questions were answered. Discharge Plan Triage Chief Complaint: Abd Pain ED Provider: Noé Jean Dx/Rx/DC Orders Clinical Impression: Calculus of proximal right ureter, Acute right flank pain Instructions: ED Kidney Stone with Pain Prescriptions: New hydrocodone-acetaminophen 5-325 mg tablet 1 tab PO Q6H PRN PRN (Reason: Pain) 3 Days Qty: 10 0RF No Action polyethylene glycol 3350 [Miralax] 17 gram/dose powder 4 g PO DAILY PNV-DHA 27 mg iron-1 mg -300 mg capsule 1 cap PO Primary Care Provider: Angelica Sharpe Referrals: Sammie Shah MD [Med Staff - Active Staff, Urology] - 3-5 Days Angelica Sharpe DO [Primary Care Provider, Internal Medicine] - 5-7 Days Print Language: Bangladeshi Disposition Disposition: Home, Self Care
[2025-10-12] MEDS: 0.9% Normal Saline (1000mL) 1,000 ML 999 ML IV (13:12)
[2025-10-12 13:19] LABS: Mucous, Urine 0 SEEN /hpf (<or=2+)
[2025-10-12 13:25] LABS: Color, Urine Yellow (Yellow); Glucose, Dipstick Normal (Normal); Ketone-Dipstick Negative (Negative); Leukocyte Esterase-Dipstick Negative /ul (Negative); Nitrite-Dipstick Negative (Negative); Occult Blood-Urine 250 /ul (Negative); Protein-Dipstick 30 mg/dl (Negative); Specific Gravity, Urine 1.020 (1.002-1.030); Urine Bilirubin Dipstick Negative (Negative)
[2025-10-12 13:26] LABS: Hematocrit 38.4 % (37-47); Hemoglobin 13.2 g/dL (12.0-15.0); Immature Granulocytes Count 0.020 X10^3/uL (0.0-0.0); Mean Corp Hgb Conc 34.4 g/dL (32-36); Mean Corpuscular Volume 92.3 fL (81-99); Mean Platelet Vol. 10.3 fl (6.2-12.0); NRBC Flagged by Analyzer 0 % (0-5); Platelet Count 336 K/mm3 (150-450); RBC Distribution Width CV 11.5 % (11.6-14.6); RBC Distribution Width SD 38.6 fl (35.1-43.9); Red Blood Count 4.16 M/mm3 (4.2-5.4); White Blood Count 9.4 K/mm3 (4.4-11.0)
[2025-10-12 13:31] LABS: Red Blood Cells-Urine > 100 SEEN /hpf (0-5); Squamous Epithelial Cells - UA 0-5 SEEN /hpf (5-10)
[2025-10-12 13:35] LABS: Internal QC Validated? YES +Cl - CLEAR BKGD; Pregnancy, Serum, hCG Quali. NEGATIVE Negative
[2025-10-12 13:40] LABS: AST(SGOT) 21 U/L (<=31); Alanine Aminotransfer ALT/SGPT 15 U/L (<=34); Albumin, Serum 4.5 g/dL (3.5-5.0); Alkaline Phosphatase 64 U/L (35-104); Anion Gap 10 (5-15); BUN 18 mg/dL (4-19); BUN/Creat Ratio 25.5 RATIO (10-20); Calcium,Total 9.6 mg/dL (7.6-11.0); Carbon Dioxide 25.5 mmol/L (21.0-32.0); Chloride 100 mmol/L (98-108); Estimated Creatinine Clearance 98.27 ml/min (50-250); Globulin 3.0 g/dL (2.2-4.2); Glucose 96 mg/dL (70-99); Lipase 50 U/L (13-75); Potassium 4.3 mmol/L (3.3-5.1)
--- NOTE | 2025-10-12 13:45 | CT_ITS ---
PROCEDURE: ABDOMEN/PELVIS W IV CONT ONLY 10/12/2025 REASON FOR EXAM: ABDOMINAL PAIN Dull right-sided abdominal pain. TECHNIQUE: Procedure Code: [id number] Modality: CT Procedure: ABDOMEN/PELVIS W IV CONT ONLY Coronal and Sagittal reconstruction series were provided. CONTRAST: Isovue 300 VOLUME: 100 mL One or more dose reduction techniques were used (e.g., Automated exposure control, adjustment of the mA and/or kV according to patient size, use of iterative reconstruction technique. RADIATION DOSE SUMMARY: CTDlvol: 9 mGy DLP: 300.45 mGycm COMPARISON: None FINDINGS: Lung bases: The lung bases are unremarkable. Liver: Normal size. No mass. Gallbladder: Unremarkable Spleen: Normal size. Pancreas: Normal size without evidence of mass surrounding inflammation or ductal dilation. Adrenals: Unremarkable Kidneys: There is a 5.7 mm calculus in the right renal pelvis causing a minimal degree of right hydronephrosis. Bladder: Unremarkable Reproductive Organs: Follicles are seen in the both ovaries. Bowel: Unremarkable gas pattern. Appendix: Unremarkable Lymph nodes: Unremarkable. Vasculature: The abdominal aorta and IVC are normal. Peritoneum / Retroperitoneum: Small umbilical hernia containing fat. Bones: Unremarkable CT/Abdomen/Pelvis W IV Cont ONLY IMPRESSION: 5.7 mm calculus in the right renal pelvis causing a minimal degree of right hyd ronephrosis. Reading Location: [id number]
[2025-10-12 14:09] VITALS: BP 128/74; PULSE 70; RESP 14; O2SAT 99
[2025-10-12 15:09] VITALS: BP 128/74; PULSE 68; RESP 14; TEMP 36.6; O2SAT 100
== END 2025-10-12 15:14 | disposition home or self-care (01) ==
PROVIDERS: Emergency Provider Emergency Medicine; PCP Internal Medicine; Visit Provider Emergency Medicine
DX: N13.2 Hydronephrosis with renal and ureteral calculous obstruction (principal)
CPT/HCPCS: 74177; 80053; 81001; 83690; 84703; 85025; 96361; 96374; 96375; 99283; Q9967; A4216; J2405